=== PATIENT | male | born 1995 | race Caucasian/White ===

== ENCOUNTER 2016-08-15 00:20 | Emergency (ER) | payer OTHER ==
[~2016-08-15] VITALS: Ht 182.9 cm; Wt 71.7 kg
[~2016-08-15 00:20] MED LIST: METH-313 PO; NAPR550T PO
[2016-08-15] MEDS ORDERED: PANTOPRAZOLE 40 MG/10 ML (PROTONIX) VIAL ONE (00:23)
[2016-08-15] MEDS ORDERED: ONDANSETRON 4 MG/2 ML (SDV) Z0FRAN ONE (00:23)
[2016-08-15] MEDS ORDERED: NS IV 1000 ML 1,000 ML IV ONE (00:24)
--- OUTSIDE RECORDS SUMMARY | 2016-08-15 00:25 | XMS REPORT ---
Author JAYCOB Garrido [facility], [place] eClinicalWorks Address Unknown Phone Unavailable Care Team Providers Care Chainer Name Role Phone JAYCOB BAKER CP Unavailable Allergies, Adverse Reactions, Alerts Substance Reaction Event Type N.K.D.A. Info Not Available Non Drug Allergy Problems Problem Type Condition Code Onset Dates Condition Status Assessment Low back pain M54.5 Active Assessment Other chronic pain G89.29 Active Problem Other chronic pain G89.29 Active Medications Medication Code System Code Instructions Start Date End Date Status Dosage PredniSONE [facility] [address]-88 20 mg Orally Once a day Mar 22, 2016 Mar 27, 2016 2 tablets Zanaflex [facility] [address]-14 6 MG Orally 2 times a day Mar 22, 2016 1 capsule as needed Tramadol HCl [facility] [address]-01 50 mg Orally 2 times a day Mar 22, 2016 1 tablet as needed Naproxen Sodium [facility] [address]-00 550 MG Orally Twice a day 1 tablet Procedures Procedure Coding System Code Date Office Visit, New Pt., Level 3 CPT-4 72209 Mar 22, 2016 Vital Signs Date/Time: Mar 22, 2016 Cardiac Monitoring Heart Rate 80 bpm Weight 157.1 lbs Height 72 in BMI 21.30 Index Blood Pressure Diastolic 80 mmHg Blood Pressure Systolic 116 mmHg Results No Known Results Summary Purpose eClinicalWorks Submission
[2016-08-15] MEDS ORDERED: ONDANSETRON 4 MG/2 ML (SDV) Z0FRAN IVP ONE (00:30)
[2016-08-15] MEDS ORDERED: PANTOPRAZOLE 40 MG/10 ML (PROTONIX) VIAL IV ONE (00:30)
--- NOTE | 2016-08-15 00:30 | ED General ---
General Stated Complaint: ETOH/VOMITING Source of Information: Patient, EMS History of Present Illness Time Seen by Provider: 00:19 Initial Comments PT ARRIVES VIA EMS FROM HOME--NO IV/NO TREATMENT DONE BY EMS PT IS INTOXICATED--STATES HE HAD 4 SHOTS OF VODKA AND HAS HAD 5 BOTTLES OF BEER TONIGHT AND "IT DIDN'T AGREE WITH ME" PT WAS FOUND BY A FAMILY MEMBER "PASSED OUT" LEANING OVER THE TOILET--"COULDN'T WAKE HIM UP" EMS REPORT THAT PT WAS AWAKE/ALERT, LEANING OVER TOILET AND VOMITING ON THEIR ARRIVAL TO SCENE PT IS DRY HEAVING ON ARRIVAL WITH FLECKS OF BLOOD IN EMESIS PT ATE [place] SOMETIME AFTER 1800 TONIGHT. Allergies and Home Medications Allergies Coded Allergies: No Known Drug Allergies (Unverified , 03/09/16) Home Medications Methocarbamol 750 Mg Tablet #60 750 MG PO UD Prescribed by: JAYCOB THAKKAR on 03/09/16 2315 Naproxen Sodium 550 Mg Tablet #30 550 MG PO Q12H PRN PRN BACK PAIN Prescribed by: JAYCOB THAKKAR on 03/09/16 2315 Ondansetron 4 Mg Tab.rapdis #10 4 MG PO Q4H Prescribed by: DELROY WILLARD on 08/15/16 0146 Pantoprazole Sodium 40 Mg Tablet.dr #15 40 MG PO DAILY Prescribed by: DELROY WILLARD on 08/15/16 0146 Constitutional: no symptoms reported Respiratory: no symptoms reported Cardiovascular: no symptoms reported Gastrointestinal: see HPI Genitourinary: no symptoms reported Musculoskeletal: no symptoms reported Skin: no symptoms reported Psychiatric/Neurological: See HPI Hematologic/Lymphatic: No Symptoms Reported Immunological/Allergic: no symptoms reported Past Dbcxcwx-Vztbjg-Zikjgs Hx Patient Social History Smoking Status: Current Everyday Smoker (1/2 PPD) Type Used: Cigarettes Recent Hopitalizations: No Seasonal Allergies Seasonal Allergies: No Surgeries HX Surgeries: No Respiratory Hx Respiratory Disorders: No Cardiovascular Hx Cardiac Disorders: No Neurological Hx Neurological Disorders: No Reproductive System Hx Reproductive Disorders: No Genitourinary Hx Genitourinary Disorders: No Gastrointestinal Hx Gastrointestinal Disorders: No Musculoskeletal Hx Musculoskeletal Disorders: No Endocrine Hx Endocrine Disorders: No HEENT HX ENT Disorders: No Cancer Hx Cancer: No Psychosocial Hx Psychiatric Problems: No Integumentary HX Skin/Integumentary Disorder: No Blood Transfusions Hx Blood Disorders: No Physical Exam Vital Signs Vital Sign - Last 12Hours 08/15/16 00:20 Temp 95.5 Pulse 78 Resp 12 B/P 115/76 Pulse Ox 97 O2 Delivery Room Air Capillary Refill : General Appearance: No Apparent Distress WD/WN Thin Other (PT MOSTLY DRY HEAVING WITH SMALL AMOUNT OF BLOOD TINGED EMESIS--SMALL FLECKS OF BLOOD. + ODOR OF ETOH. 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 Norm as Tested Skin: Normal Color Warm/Dry Focused Exam Lactic Acid Level Progress/Results/Core Measures Results/Orders Lab Results Laboratory Tests Test 08/15/16 00:28 08/15/16 01:12 Range/Units Activated Partial Thromboplast Time 26 24-35 SEC Alanine Aminotransferase (ALT/SGPT) 12 0-55 U/L Albumin 4.4 3.2-4.5 G/DL Alkaline Phosphatase 71 40-136 U/L Amylase Level 38 25-125 U/L Anion Gap 16 H 5-14 MMOL/L Aspartate Amino Transf (AST/SGOT) 22 5-34 U/L BUN/Creatinine Ratio 12 Basophils # (Auto) 0.0 0.0-0.1 10^3/uL Basophils (%) (Auto) 0 0-10 % Blood Urea Nitrogen 10 7-18 MG/DL Calcium Level 9.5 8.5-10.1 MG/DL Carbon Dioxide Level 16 L 21-32 MMOL/L Chloride Level 107 98-107 MMOL/L Creatinine 0.83 0.60-1.30 MG/DL Eosinophils # (Auto) 0.2 0.0-0.3 10^3/uL Eosinophils (%) (Auto) 3 0-10 % Estimat Glomerular Filtration Rate > 60 Glucose Level 101 70-105 MG/DL Hematocrit 39 L 40-54 % Hemoglobin 13.6 13.3-17.7 G/DL INR Comment 1.1 0.8-1.4 Lipase 7 L 8-78 U/L Lymphocytes # (Auto) 3.8 1.0-4.0 X 10^3 Lymphocytes (%) (Auto) 50 H 12-44 % Mean Corpuscular Hemoglobin 30 25-34 PG Mean Corpuscular Hemoglobin Concent 35 32-36 G/DL Mean Corpuscular Volume 84 80-99 FL Mean Platelet Volume 9.2 7.4-10.4 FL Monocytes # (Auto) 0.5 0.0-1.0 X 10^3 Monocytes (%) (Auto) 7 0-12 % Neutrophils # (Auto) 3.0 1.8-7.8 X 10^3 Neutrophils (%) (Auto) 40 L 42-75 % Platelet Count 251 130-400 10^3/uL Potassium Level 3.5 L 3.6-5.0 MMOL/L Prothrombin Time 14.2 12.2-14.7 SEC Red Blood Count 4.61 4.35-5.85 10^6/uL Red Cell Distribution Width 11.9 10.0-14.5 % Serum Alcohol 109 H <10 MG/DL Sodium Level 139 135-145 MMOL/L Total Bilirubin 1.1 H 0.1-1.0 MG/DL Total Protein 6.7 6.4-8.2 G/DL White Blood Count 7.5 4.3-11.0 10^3/uL Ur Tricyclic Antidepressants Screen NEGATIVE NEGATIVE Urine Amphetamines Screen NEGATIVE NEGATIVE Urine Barbiturates Screen NEGATIVE NEGATIVE Urine Benzodiazepines Screen NEGATIVE NEGATIVE Urine Cannabinoids Screen NEGATIVE NEGATIVE Urine Cocaine Screen NEGATIVE NEGATIVE Urine Methadone Screen NEGATIVE NEGATIVE Urine Methamphetamines Screen NEGATIVE NEGATIVE Urine Opiates Screen NEGATIVE NEGATIVE Urine Oxycodone Screen NEGATIVE NEGATIVE Urine Phencyclidine Screen NEGATIVE NEGATIVE Urine Propoxyphene Screen NEGATIVE NEGATIVE My Orders Orders-DELROY WILLARD DO Ondansetron Injection (Zofran Injectio (08/15/16 00:30) Pantoprazole Injection (Protonix Injecti (08/15/16 00:30) Saline Lock/Iv-Start (08/15/16 00:24) Alcohol (08/15/16 00:24) Amylase (08/15/16 00:24) Cbc With Automated Diff (08/15/16 00:24) Comprehensive Metabolic Panel (08/15/16 00:24) Drug Screen Stat (Urine) (08/15/16 00:24) Lipase (08/15/16 00:24) Protime With Inr (08/15/16 00:24) Partial Thromboplastin Time (08/15/16 00:24) Saline Lock/Iv-Start (08/15/16 00:24) Ns Iv 1000 Ml (Sodium Chloride 0.9%) (08/15/16 00:24) Ondansetron Injection (Zofran Injectio (08/15/16 00:23) Pantoprazole Injection (Protonix Injecti (08/15/16 00:23) Rx-Ondansetron Po (Rx-Zofran Po) (08/15/16 01:47) Medications Given in ED Current Medications Medications Dose Ordered Sig/[place] Route Start Time Stop Time Status Last Admin Dose Admin Ondansetron HCl 8 mg ONCE ONCE IVP 08/15/16 00:30 08/15/16 00:31 DC 08/15/16 00:30 8 MG Pantoprazole 40 mg 40 mg ONCE ONCE IV 08/15/16 00:30 08/15/16 00:31 DC 08/15/16 00:30 40 MG Sodium Chloride 1,000 ml @ 0 mls/hr Q0M ONCE IV 08/15/16 00:24 08/15/16 00:26 DC 08/15/16 00:38 0 MLS/HR Vital Signs/I&O Vital Sign - Last 12Hours 08/15/16 08/15/16 00:20 02:00 Temp 95.5 97.0 Pulse 78 75 Resp 12 14 B/P 115/76 Pulse Ox 97 97 O2 Delivery Room Air Progress Note : Progress Note NO FURTHER VOMITING DURING ER STAY SPEECH IS CLEAR AND STEADY GAIT AT DISMISSAL Departure Impression Impression: Primary Impression: Alcohol intoxication Additional Impression: Acute alcoholic gastritis Disposition: 01 HOME, SELF-CARE Condition: Improved Departure-Patient Inst. Referrals: NO,LOCAL PHYSICIAN (PCP/Family) Primary Care Physician Patient Instructions: ALCOHOL AND SUBSTANCE ABUSE, Alcohol Abuse and Alcoholism (DC), Gastritis (DC) Add. Discharge Instructions: NO ALCOHOL!!! TOMORROW, DRINK ONLY CLEAR LIQUIDS--WATER, BROTH, JELLO, GATORADE WHEN YOUR NAUSEA IS BETTER, ADD BRATS DIET TO CLEAR LIQUIDS--BANANAS, RICE, APPLESAUCE, TOAST, SALTINES FOLLOW UP WITH YOUR DR TOMORROW IF NO BETTER Scripts Ondansetron (Zofran Odt)4 Mg Tab.rapdis4 Mg PO Q4H Nausea/Vomiting #10 TAB Prov:MONTSE,DELROY K DO 08/15/16 Pantoprazole Sodium (Protonix)40 Mg Tablet.dr40 Mg PO DAILY #15 TAB Prov:MONTSESANDRAA K DO 08/15/16 MONTSEDELROY K DO Aug 15, 2016 00:30 Dose Admin Ondansetron HCl 8 mg ONCE ONCE IVP 08/15/16 00:30 08/15/16 00:31 DC 08/15/16 00:30 8 MG Pantoprazole 40 mg 40 mg ONCE ONCE IV 08/15/16 00:30 08/15/16 00:31 DC 08/15/16 00:30 40 MG Sodium Chloride 1,000 ml @ 0 mls/hr Q0M ONCE IV 08/15/16 00:24 08/15/16 00:26 DC 08/15/16 00:38 0 MLS/HR Vital Signs/I&O Vital Sign - Last 12Hours 08/15/16 00:20 Temp 95.5 Pulse 78 Resp 12 B/P 115/76 Pulse Ox 97 O2 Delivery Room Air Departure Impression Impression: Primary Impression: Alcohol intoxication Additional Impression: Acute alcoholic gastritis Disposition: HOME, SELF-CARE Condition: Improved Departure-Patient Inst. Referrals: NO,LOCAL PHYSICIAN (PCP/Family) Primary Care Physician Patient Instructions: ALCOHOL AND SUBSTANCE ABUSE, Alcohol Abuse and Alcoholism (DC), Gastritis (DC) Add. Discharge Instructions: NO ALCOHOL!!! TOMORROW, DRINK ONLY CLEAR LIQUIDS--WATER, BROTH, JELLO, GATORADE WHEN YOUR NAUSEA IS BETTER, ADD BRATS DIET TO CLEAR LIQUIDS--BANANAS, RICE, APPLESAUCE, TOAST, SALTINES FOLLOW UP WITH YOUR DR TOMORROW IF NO BETTER Scripts Ondansetron (Zofran Odt)4 Mg Tab.rapdis4 Mg PO Q4H Nausea/Vomiting #10 TAB Prov:MONTSE,DELROY K DO 08/15/16 Pantoprazole Sodium (Protonix)40 Mg Tablet.dr40 Mg PO DAILY #15 TAB Prov:MONTSE,DELROY K DO 08/15/16 MONTSEDELROY K DO Aug 15, 2016 00:30
[2016-08-15 00:41] LABS: BASOPHILS % (AUTO) 0 % (0-10); EOSINOPHILS # (AUTO) 0.2 10^3/uL (0.0-0.3); EOSINOPHILS % (AUTO) 3 % (0-10); LYMPHOCYTES # (AUTO) 3.8 X 10^3 (1.0-4.0); LYMPHOCYTES % (AUTO) 50 % (12-44); MEAN CORPUSCULAR HEMOGLOBIN 30 PG (25-34); MEAN CORPUSCULAR HGB CONC 35 G/DL (32-36); MEAN CORPUSCULAR VOLUME 84 FL (80-99); MEAN PLATELET VOLUME 9.2 FL (7.4-10.4); MONOCYTES # (AUTO) 0.5 X 10^3 (0.0-1.0); MONOCYTES % (AUTO) 7 % (0-12); NEUTROPHILS % (AUTO) 40 % (42-75); PLATELET COUNT 251 10^3/uL (130-400); RED BLOOD COUNT 4.61 10^6/uL (4.35-5.85); RED CELL DISTRIBUTION WIDTH 11.9 % (10.0-14.5); WHITE BLOOD COUNT 7.5 10^3/uL (4.3-11.0)
[2016-08-15 00:49] LABS: INR 1.1 (0.8-1.4); PROTHROMBIN TIME PATIENT 14.2 SEC (12.2-14.7)
[2016-08-15 01:00] LABS: ALANINE AMINOTRANSFERASE 12 U/L (0-55); ALBUMIN 4.4 G/DL (3.2-4.5); ALCOHOL 109 MG/DL (<10); AMYLASE 38 U/L (25-125); ANION GAP 16 MMOL/L (5-14); ASPARTATE AMINO TRANSFERASE 22 U/L (5-34); BILIRUBIN,TOTAL 1.1 MG/DL (0.1-1.0); BLOOD UREA NITROGEN 10 MG/DL (7-18); BUN/CREATININE RATIO 12; CALCIUM 9.5 MG/DL (8.5-10.1); CARBON DIOXIDE 16 MMOL/L (21-32); CHLORIDE 107 MMOL/L (98-107); CREATININE SERUM 0.83 MG/DL (0.60-1.30); GFR ESTIMATED > 60; GLUCOSE 101 MG/DL (70-105); LIPASE 7 U/L (8-78); POTASSIUM 3.5 MMOL/L (3.6-5.0); SODIUM 139 MMOL/L (135-145); TOTAL PROTEIN 6.7 G/DL (6.4-8.2)
[2016-08-15] MEDS ORDERED: PANT40TA2 PO (01:46)
[2016-08-15] MEDS ORDERED: ONDA4TAB8 PO (01:46)
[2016-08-15] MEDS ORDERED: RX-ONDANSETRON 4 MG ODT (ZOFRAN) PPK #4 PO STA (01:47)
[2016-08-15 02:00] VITALS: BP 120/84
== END 2016-08-15 02:00 | disposition home or self-care (01) ==
LOC: EDUNIT# 00:20 → ER 00:22
DX: F10.129 Alcohol abuse with intoxication, unspecified (principal); K29.20 Alcoholic gastritis without bleeding; Y90.5 Blood alcohol level of 100-119 mg/100 ml; F17.210 Nicotine dependence, cigarettes, uncomplicated
CPT/HCPCS: 36415; 80053; 80306; 80320; 82150; 83690; 85025; 85610; 85730; 96361; 96374; 96375

== ENCOUNTER 2016-08-20 23:10 | Emergency (ER) | payer OTHER ==
[~2016-08-20] VITALS: Ht 182.9 cm; Wt 68.0 kg
[~2016-08-20 23:10] MED LIST changes: +ONDA4TAB8 PO; +PANT40TA2 PO
[2016-08-20 23:28] LABS: BASOPHILS % (AUTO) 0 % (0-10); EOSINOPHILS # (AUTO) 0.1 10^3/uL (0.0-0.3); EOSINOPHILS % (AUTO) 1 % (0-10); LYMPHOCYTES # (AUTO) 3.3 X 10^3 (1.0-4.0); LYMPHOCYTES % (AUTO) 31 % (12-44); MEAN CORPUSCULAR HEMOGLOBIN 29 PG (25-34); MEAN CORPUSCULAR HGB CONC 36 G/DL (32-36); MEAN CORPUSCULAR VOLUME 83 FL (80-99); MEAN PLATELET VOLUME 9.2 FL (7.4-10.4); MONOCYTES # (AUTO) 0.8 X 10^3 (0.0-1.0); MONOCYTES % (AUTO) 8 % (0-12); NEUTROPHILS # (AUTO) 6.2 X 10^3 (1.8-7.8); NEUTROPHILS % (AUTO) 60 % (42-75); PLATELET COUNT 301 10^3/uL (130-400); RED BLOOD COUNT 4.66 10^6/uL (4.35-5.85); RED CELL DISTRIBUTION WIDTH 11.9 % (10.0-14.5); WHITE BLOOD COUNT 10.4 10^3/uL (4.3-11.0)
--- NOTE | 2016-08-20 23:30 | ED General ---
ED General Template History Present Illness 20-year-old male brought in for what appears to be right lower quadrant pain. Patient is intoxicated, provides no information. Patient has drank a significant amount. Patient has previous visit for intoxication. He denies taking any drugs. He has some vomiting previously from drinking. Initial Time/Exam Patient 2310 Allergy/Medications Allergies: Coded Allergies: No Known Drug Allergies (Unverified , 03/09/16) Methocarbamol (Robaxin-750) 750 Mg Tablet, 750 MG PO UD, #60 Ref 0 Prescribed by: JAYCOB THAKKAR on 03/09/16 2315 Naproxen Sodium (Anaprox Ds) 550 Mg Tablet, 550 MG PO Q12H PRN for BACK PAIN, # 30 Ref 0 Prescribed by: JAYCOB THAKKAR on 03/09/16 2315 Ondansetron (Zofran Odt) 4 Mg Tab.rapdis, 4 MG PO Q4H, #10 Prescribed by: DELROY WILLARD on 08/15/16 0146 Pantoprazole Sodium (Protonix) 40 Mg Tablet.dr, 40 MG PO DAILY, #15 Prescribed by: DELROY WILLARD on 08/15/16 0146 Review Of Systems Patient positive for abdominal pain, intoxication, nausea vomiting. Review of systems is limited based on his intoxication. PMH Past Medical Hx nurses notes reviewed Physicial Exam Gen: intoxicated, nad Heent: mucous membranes moist, perrl, eom intact CV RRR, cap refill brisk Resp, CTAB, no increased wob, wheezing or rhonchi Abd: mild ttp rlq, no rebound or guarding int: no rash, acute changes ext: move all extremities. Progress/Results/Core Measures Results/Orders Lab Results Laboratory Tests Test 08/20/16 23:20 08/20/16 23:35 Range/Units White Blood Count 10.4 4.3-11.0 10^3/uL Red Blood Count 4.66 4.35-5.85 10^6/uL Hemoglobin 13.7 13.3-17.7 G/DL Hematocrit 39 L 40-54 % Mean Corpuscular Volume 83 80-99 FL Mean Corpuscular Hemoglobin 29 25-34 PG Mean Corpuscular Hemoglobin Concent 36 32-36 G/DL Red Cell Distribution Width 11.9 10.0-14.5 % Platelet Count 301 130-400 10^3/uL Mean Platelet Volume 9.2 7.4-10.4 FL Neutrophils (%) (Auto) 60 42-75 % Lymphocytes (%) (Auto) 31 12-44 % Monocytes (%) (Auto) 8 0-12 % Eosinophils (%) (Auto) 1 0-10 % Basophils (%) (Auto) 0 0-10 % Neutrophils # (Auto) 6.2 1.8-7.8 X 10^3 Lymphocytes # (Auto) 3.3 1.0-4.0 X 10^3 Monocytes # (Auto) 0.8 0.0-1.0 X 10^3 Eosinophils # (Auto) 0.1 0.0-0.3 10^3/uL Basophils # (Auto) 0.0 0.0-0.1 10^3/uL Sodium Level 141 135-145 MMOL/L Potassium Level 3.1 L 3.6-5.0 MMOL/L Chloride Level 107 98-107 MMOL/L Carbon Dioxide Level 20 L 21-32 MMOL/L Anion Gap 14 5-14 MMOL/L Blood Urea Nitrogen 8 7-18 MG/DL Creatinine 0.90 0.60-1.30 MG/DL Estimat Glomerular Filtration Rate > 60 BUN/Creatinine Ratio 9 Glucose Level 97 70-105 MG/DL Calcium Level 9.9 8.5-10.1 MG/DL Total Bilirubin 1.3 H 0.1-1.0 MG/DL Aspartate Amino Transf (AST/SGOT) 14 5-34 U/L Alanine Aminotransferase (ALT/SGPT) 10 0-55 U/L Alkaline Phosphatase 76 40-136 U/L C-Reactive Protein High Sensitivity 0.01 0.00-0.50 MG/DL Total Protein 6.9 6.4-8.2 G/DL Albumin 4.7 H 3.2-4.5 G/DL Amylase Level 33 25-125 U/L Serum Alcohol 90 H <10 MG/DL Urine Color YELLOW Urine Clarity SLIGHTLY CLOUDY Urine pH 5 5-9 Urine Specific [place] 1.025 H 1.016-1.022 Urine Protein 1+ H NEGATIVE Urine Glucose (UA) NEGATIVE NEGATIVE Urine Ketones NEGATIVE NEGATIVE Urine Nitrite NEGATIVE NEGATIVE Urine Bilirubin NEGATIVE NEGATIVE Urine Urobilinogen 1 NORMAL MG/DL Urine Leukocyte Esterase 1+ H NEGATIVE Urine RBC (Auto) 1+ H NEGATIVE Urine RBC RARE /HPF Urine WBC RARE /HPF Urine Squamous Epithelial Cells 0-2 /HPF Urine Crystals NONE /LPF Urine Bacteria TRACE /HPF Urine Casts NONE /LPF Urine Mucus LARGE H /LPF Urine Culture Indicated NO Urine Opiates Screen NEGATIVE NEGATIVE Urine Oxycodone Screen NEGATIVE NEGATIVE Urine Methadone Screen NEGATIVE NEGATIVE Urine Propoxyphene Screen NEGATIVE NEGATIVE Urine Barbiturates Screen NEGATIVE NEGATIVE Ur Tricyclic Antidepressants Screen NEGATIVE NEGATIVE Urine Phencyclidine Screen NEGATIVE NEGATIVE Urine Amphetamines Screen NEGATIVE NEGATIVE Urine Methamphetamines Screen NEGATIVE NEGATIVE Urine Benzodiazepines Screen NEGATIVE NEGATIVE Urine Cocaine Screen NEGATIVE NEGATIVE Urine Cannabinoids Screen NEGATIVE NEGATIVE My Orders Orders - BIRDIE NAVAS DO Cbc With Automated Diff (08/20/16 23:20) Comprehensive Metabolic Panel (08/20/16 23:20) Amylase (08/20/16 23:20) Ua Culture If Indicated (08/20/16 23:20) Alcohol (08/20/16 23:20) Drug Screen Stat (Urine) (08/20/16 23:20) Saline Lock/Iv-Start (08/20/16 23:20) Hs C Reactive Protein (08/20/16 23:20) Acute Abd Series (08/20/16 23:20) Vital Signs/I&O Vital Sign - Last 12Hours 08/20/16 08/21/16 23:10 00:30 Temp 97.9 97.9 Pulse 72 70 Resp 18 18 B/P (MAP) 103/86 Pulse Ox 99 97 O2 Delivery Room Air Diagnostic Imaging Diagonstic Imaging: Xray Plain Films/CT/US/NM/MRI: chest, abdomen Comments moderate stool, no acute process Reviewed: Reviewed by Me Departure Impression Impression: Primary Impression: Alcohol intoxication Qualified Codes: F10.120 - Alcohol abuse with intoxication, uncomplicated Additional Impression: Abdominal pain Qualified Codes: R10.30 - Lower abdominal pain, unspecified Disposition: 01 HOME, SELF-CARE Condition: Stable Departure-Patient Inst. Referrals: NO,LOCAL PHYSICIAN (PCP/Family) Primary Care Physician Patient Instructions: ALCOHOL AND SUBSTANCE ABUSE, Acute Abdomen (Belly Pain), Adult (DC), Alcohol Abuse and Alcoholism (DC) BIRDIE NAVAS DO Aug 20, 2016 23:30
[2016-08-20 23:43] LABS: BILIRUBIN,URINE NEGATIVE (NEGATIVE); KETONES,URINE NEGATIVE (NEGATIVE); LEUKOCYTE ESTERASE ,URINE 1+ (NEGATIVE); NITRITE,URINE NEGATIVE (NEGATIVE); PH,URINE 5 (5-9); PROTEIN,URINE 1+ (NEGATIVE); UROBILINOGEN,URINE 1 MG/DL (NORMAL)
[2016-08-20 23:47] LABS: hs C REACTIVE PROTEIN 0.01 MG/DL (0.00-0.50)
[2016-08-20 23:49] LABS: ALANINE AMINOTRANSFERASE 10 U/L (0-55); ALBUMIN 4.7 G/DL (3.2-4.5); ANION GAP 14 MMOL/L (5-14); ASPARTATE AMINO TRANSFERASE 14 U/L (5-34); BILIRUBIN,TOTAL 1.3 MG/DL (0.1-1.0); BLOOD UREA NITROGEN 8 MG/DL (7-18); BUN/CREATININE RATIO 9; CALCIUM 9.9 MG/DL (8.5-10.1); CARBON DIOXIDE 20 MMOL/L (21-32); CHLORIDE 107 MMOL/L (98-107); GFR ESTIMATED > 60; GLUCOSE 97 MG/DL (70-105); POTASSIUM 3.1 MMOL/L (3.6-5.0); SODIUM 141 MMOL/L (135-145); TOTAL PROTEIN 6.9 G/DL (6.4-8.2)
[2016-08-20 23:51] LABS: SQUAMOUS EPITHELIAL CELL,UR 0-2 /HPF; WBC,URINE RARE /HPF
[2016-08-21 00:30] VITALS: BP 105/57
--- NOTE | 2016-08-21 08:37 | Diagnostic Imaging Report ---
INDICATION: Abdominal pain. Ethanol abuse. FINDINGS: PA chest show the lungs to be well-aerated and clear. There is no free air under the diaphragm. There is a moderate amount of stool present throughout colon from cecum to the rectum. There is an air-fluid level in the stomach though the stomach is not distended. Small bowel is not dilated. There is no organomegaly. No pathologic calcification. IMPRESSION: Finding consistent with moderate constipation. Otherwise negative abdomen series. Dictated by: Dictated on workstation # [id number]
--- OUTSIDE RECORDS SUMMARY | 2016-09-07 11:33 | XMS REPORT ---
Author JAYCOB Garrido [facility] eClinicalWorks Address Unknown Phone Unavailable Care Team Providers Care Wind Turbine Mechanic Name Role Phone JAYCOB BAKER CP Unavailable Allergies, Adverse Reactions, Alerts Substance Reaction Event Type N.K.D.A. Info Not Available Non Drug Allergy Problems Problem Type Condition Code Onset Dates Condition Status Assessment Low back pain M54.5 Active Assessment Other chronic pain G89.29 Active Problem Other chronic pain G89.29 Active Medications Medication Code System Code Instructions Start Date End Date Status Dosage PredniSONE [facility] [address]-99 20 mg Orally Once a day Mar 22, 2016 Mar 27, 2016 2 tablets Zanaflex [facility] [address]-23 6 MG Orally 2 times a day Mar 22, 2016 1 capsule as needed Tramadol HCl [facility] [address]-82 50 mg Orally 2 times a day Mar 22, 2016 1 tablet as needed Naproxen Sodium [facility] [address]-06 550 MG Orally Twice a day 1 tablet Procedures Procedure Coding System Code Date Office Visit, New Pt., Level 3 CPT-4 13863 Mar 22, 2016 Vital Signs Date/Time: Mar 22, 2016 Cardiac Monitoring Heart Rate 80 bpm Weight 157.1 lbs Height 72 in BMI 21.30 Index Blood Pressure Diastolic 80 mmHg Blood Pressure Systolic 116 mmHg Results No Known Results Summary Purpose eClinicalWorks Submission
== END 2016-08-21 00:30 | disposition home or self-care (01) ==
LOC: EDUNIT# 23:16 → ER 23:19
DX: R10.31 Right lower quadrant pain (principal); F10.129 Alcohol abuse with intoxication, unspecified; K59.00 Constipation, unspecified; Y90.4 Blood alcohol level of 80-99 mg/100 ml
CPT/HCPCS: 36415; 74022; 80053; 80306; 80320; 81000; 82150; 85025; 86141

== ENCOUNTER 2017-01-29 21:30 | Emergency (ER) | payer OTHER ==
[~2017-01-29] VITALS: Ht 182.9 cm; Wt 68.0 kg
[~2017-01-29 21:30] MED LIST changes: +NAPR-1070 PO; -NAPR550T PO
[2017-01-29] MEDS ORDERED: ONDANSETRON 4 MG/2 ML (SDV) Z0FRAN IVP ONE (21:45)
[2017-01-29] MEDS ORDERED: D5 NS 1000 ML IV SOLUTION 1,000 ML IV ONE (21:55)
[2017-01-29 22:03] LABS: BASOPHILS % (AUTO) 0 % (0-10); EOSINOPHILS # (AUTO) 0.1 10^3/uL (0.0-0.3); EOSINOPHILS % (AUTO) 1 % (0-10); LYMPHOCYTES # (AUTO) 2.7 X 10^3 (1.0-4.0); LYMPHOCYTES % (AUTO) 25 % (12-44); MEAN CORPUSCULAR HEMOGLOBIN 30 PG (25-34); MEAN CORPUSCULAR HGB CONC 35 G/DL (32-36); MEAN CORPUSCULAR VOLUME 84 FL (80-99); MEAN PLATELET VOLUME 9.3 FL (7.4-10.4); MONOCYTES # (AUTO) 0.5 X 10^3 (0.0-1.0); MONOCYTES % (AUTO) 5 % (0-12); NEUTROPHILS # (AUTO) 7.7 X 10^3 (1.8-7.8); NEUTROPHILS % (AUTO) 70 % (42-75); PLATELET COUNT 266 10^3/uL (130-400); RED BLOOD COUNT 4.53 10^6/uL (4.35-5.85); RED CELL DISTRIBUTION WIDTH 11.9 % (10.0-14.5)
--- NOTE | 2017-01-29 22:03 | ED GI ---
General Chief Complaint: Abdominal/GI Problems Stated Complaint: ETOH R SIDE PAIN Source of Information: Patient, Family (grandfather) Exam Limitations: Intoxication History of Present Illness Time Seen By Provider: 21:54 Initial Comments Patient presents to ER by private EMS and EMS give the report that they were called by someone who saw the patient lying on the ground clutching his right side and pain at [facility] today. They went to pick him up and said he was rather reluctant to get on the gurney and go with some and was rather uncooperative a little bit belligerent. Please present. They brought him in the ER eventually and he attempted to leave without being examined wants but as he was quite inebriated not able to give his location or current president we got him calm down and this physician could interview him. Patient gives a history that he's had a lot of back pain midline for as long she can remember but today started experiencing some right-sided abdominal pain that he's had for the last couple days and he's never had worked up. He says the pain is pretty sharp and caused him to double over and he has even fallen a couple times while he was at the celebration today. He says that he started drinking alcohol, were slight which helped some with the pain at first and then drinking vodka and eventually the pain was getting worse and worse despite the alcohol. He's had nausea and vomiting at least times one in front of us. He is not able to give much other medical history however he does state he has no medications past medical history or surgical history and has no allergies to medicines. His grandfather arrived shortly thereafter and help calm the patient down as well as corroborate the story that he's had this pain but not had it worked up for the last couple days. The patient denies smoking or other drugs at this time. He's had no diarrhea or constipation. No rash. No trauma fights or falls FROM a distance greater than standing. Allergies and Home Medications Allergies Coded Allergies: No Known Drug Allergies (Unverified , 03/09/16) Home Medications Methocarbamol 750 Mg Tablet, 750 MG PO UD, #60 Ref 0 Prescribed by: JAYCOB THAKKAR on 03/09/162314 Naproxen Sodium 550 Mg Tablet, 550 MG PO Q12H PRN for BACK PAIN, #30 Ref 0 Prescribed by: JAYCOB THAKKAR on 03/09/165 Ondansetron 4 Mg Tab.rapdis, 4 MG PO Q4H, #10 Prescribed by: DELROY WILLARD on 08/15/16 0146 Pantoprazole Sodium 40 Mg Tablet.dr, 40 MG PO DAILY, #15 Prescribed by: DELROY WILLARD on 08/15/16 0146 Review of Systems Constitutional: see HPI (what review of systems could be obtained is in the history of present illness. The patient is overtly inebriated and not fully cooperative.) Past Ydwlvux-Wlwaed-Wsdtpa Hx Patient Social History Alcohol Use: Regular Use Alcohol Beverage of Choice: Beer, Vodka Recreational Drug Use: No Smoking Status: Never a Smoker Type Used: Cigarettes 2nd Hand Smoke Exposure: No Recent Hopitalizations: No Seasonal Allergies Seasonal Allergies: No Reproductive System Hx Reproductive Disorders: No Physical Exam Vital Signs VS - Last 72 Hours, by Label 01/29/17 21:56 Temp 98.9 Pulse 79 Resp 18 B/P (MAP) 115/66 Pulse Ox 93 O2 Delivery Room Air Capillary Refill : General Appearance: mild distress, thin HEENT: PERRL/EOMI, normal ENT inspection, TMs normal, pharynx normal Neck: non-tender, supple, normal inspection Respiratory: chest non-tender, lungs clear, normal breath sounds Cardiovascular: normal peripheral pulses, regular rate, rhythm, no edema, no murmur Peripheral Pulses: 2+ Dorsalis Pedis (R), 2+ Left Dors-Pedis (L), 2+ Radial Pulses (R), 2+ Radial Pulses (L) Gastrointestinal: normal bowel sounds, soft, tenderness (right side but Echols' s and rebound tenderness or difficult to obtain since the patient is not allowing me to examine his abdomen any further.) Extremities: non-tender, normal inspection, no pedal edema, normal capillary refill Neurologic/Psychiatric: promotions coordinator II-XII nml as tested, no motor/sensory deficits, alert, disoriented x 3 (oriented to self only knows who his grandpa's.) Skin: normal color, warm/dry Progress/Results/Core Measures Results/Orders Lab Results Laboratory Tests Test 01/29/17 21:50 01/29/17 22:15 Range/Units White Blood Count 11.0 4.3-11.0 10^3/uL Red Blood Count 4.53 4.35-5.85 10^6/uL Hemoglobin 13.4 13.3-17.7 G/DL Hematocrit 38 L 40-54 % Mean Corpuscular Volume 84 80-99 FL Mean Corpuscular Hemoglobin 30 25-34 PG Mean Corpuscular Hemoglobin Concent 35 32-36 G/DL Red Cell Distribution Width 11.9 10.0-14.5 % Platelet Count 266 130-400 10^3/uL Mean Platelet Volume 9.3 7.4-10.4 FL Neutrophils (%) (Auto) 70 42-75 % Lymphocytes (%) (Auto) 25 12-44 % Monocytes (%) (Auto) 5 0-12 % Eosinophils (%) (Auto) 1 0-10 % Basophils (%) (Auto) 0 0-10 % Neutrophils # (Auto) 7.7 1.8-7.8 X 10^3 Lymphocytes # (Auto) 2.7 1.0-4.0 X 10^3 Monocytes # (Auto) 0.5 0.0-1.0 X 10^3 Eosinophils # (Auto) 0.1 0.0-0.3 10^3/uL Basophils # (Auto) 0.0 0.0-0.1 10^3/uL Sodium Level 140 135-145 MMOL/L Potassium Level 3.4 L 3.6-5.0 MMOL/L Chloride Level 106 98-107 MMOL/L Carbon Dioxide Level 19 L 21-32 MMOL/L Anion Gap 15 H 5-14 MMOL/L Blood Urea Nitrogen 10 7-18 MG/DL Creatinine 0.78 0.60-1.30 MG/DL Estimat Glomerular Filtration Rate > 60 BUN/Creatinine Ratio 13 Glucose Level 106 H 70-105 MG/DL Calcium Level 9.2 8.5-10.1 MG/DL Magnesium Level 2.4 1.8-2.4 MG/DL Total Bilirubin 0.6 0.1-1.0 MG/DL Aspartate Amino Transf (AST/SGOT) 15 5-34 U/L Alanine Aminotransferase (ALT/SGPT) 13 0-55 U/L Alkaline Phosphatase 70 40-136 U/L Total Protein 7.1 6.4-8.2 GM/DL Albumin 4.4 3.2-4.5 GM/DL Lipase 9 8-78 U/L Serum Alcohol 109 H <10 MG/DL Urine Color YELLOW Urine Clarity CLEAR Urine pH 6 5-9 Urine Specific [place] 1.015 L 1.016-1.022 Urine Protein NEGATIVE NEGATIVE Urine Glucose (UA) NEGATIVE NEGATIVE Urine Ketones NEGATIVE NEGATIVE Urine Nitrite NEGATIVE NEGATIVE Urine Bilirubin NEGATIVE NEGATIVE Urine Urobilinogen NORMAL NORMAL MG/DL Urine Leukocyte Esterase NEGATIVE NEGATIVE Urine RBC (Auto) 1+ H NEGATIVE Urine RBC 0-2 /HPF Urine WBC 0-2 /HPF Urine Crystals NONE /LPF Urine Bacteria NONE /HPF Urine Casts NONE /LPF Urine Mucus TRACE /LPF Urine Culture Indicated NO Urine Opiates Screen NEGATIVE NEGATIVE Urine Oxycodone Screen NEGATIVE NEGATIVE Urine Methadone Screen NEGATIVE NEGATIVE Urine Propoxyphene Screen NEGATIVE NEGATIVE Urine Barbiturates Screen NEGATIVE NEGATIVE Ur Tricyclic Antidepressants Screen NEGATIVE NEGATIVE Urine Phencyclidine Screen NEGATIVE NEGATIVE Urine Amphetamines Screen NEGATIVE NEGATIVE Urine Methamphetamines Screen NEGATIVE NEGATIVE Urine Benzodiazepines Screen NEGATIVE NEGATIVE Urine Cocaine Screen NEGATIVE NEGATIVE Urine Cannabinoids Screen NEGATIVE NEGATIVE My Orders Orders - ISABELLA JUAN Ondansetron Injection (Zofran Injectio (01/29/17 21:45) Ct Abdomen/Pelvis W (01/29/17 21:55) Saline Lock/Iv-Start (01/29/17 21:55) Cbc With Automated Diff (01/29/17 21:55) Comprehensive Metabolic Panel (01/29/17 21:55) Drug Screen Stat (Urine) (01/29/17 21:55) Lipase (01/29/17 21:55) Magnesium (01/29/17 21:55) Ua Culture If Indicated (01/29/17 21:55) Chest 1 View, Ap/Pa Only (01/29/17 21:55) Saline Lock/Iv-Start (01/29/17 21:55) D5 Ns 1000 Ml Iv Solution (Dextrose 5%/0 (01/29/17 21:55) D5 1/2 Ns W/Kcl 20 Meq/L (Dextrose 5%/0. (01/29/17 22:45) Iohexol Injection (Omnipaque 350 Mg/Ml 1 (01/29/17 23:00) Ns (Ivpb) (Sodium Chloride 0.9% Ivpb Bag (01/29/17 23:00) Alcohol (01/29/17 23:12) Medications Given in ED Current Medications Medications Dose Ordered Sig/[place] Route Start Time Stop Time Status Last Admin Dose Admin Dextrose/Sodium Chloride 1,000 ml @ 0 mls/hr Q0M ONCE IV 01/29/17 21:55 01/29/17 21:58 DC 01/29/17 22:03 0 MLS/HR Iohexol 100 ml ONCE ONCE IV 01/29/17 23:00 01/29/17 23:01 DC 01/29/17 22:51 100 ML Ondansetron HCl 4 mg ONCE ONCE IVP 01/29/17 21:45 01/29/17 21:46 DC 01/29/17 21:52 4 MG Potassium Chloride/Dextrose/ Sod Cl 1,000 ml @ 500 mls/hr Q2H ONCE IV 01/29/17 22:45 01/30/17 00:44 01/29/17 23:06 500 MLS/HR Sodium Chloride 100 ml ONCE ONCE IV 01/29/17 23:00 01/29/17 23:01 DC 01/29/17 22:51 80 ML Vital Signs/I&O Vital Sign - Last 12Hours 01/29/17 21:56 Temp 98.9 Pulse 79 Resp 18 B/P (MAP) 115/66 Pulse Ox 93 O2 Delivery Room Air Progress Note #1: Time: 22:03 Progress Note Concern for a right abdominal process such as appendix or gallbladder. We'll get some blood from him and get a CT scan of his abdomen give him some fluids. Plan is let him sober up a little bit in the ER before allowing him to go home with his grandfather. Progress Note #2: Time: 23:36 Progress Note Pt resting without pain or nausea. Labs and CT are ok. He is low on K from GI losses earlier tonight. Much more coherent now. Ok to go home now. Declines further take home nausea meds. Diagnostic Imaging Diagonstic Imaging: Xray Plain Films/CT/US/NM/MRI: chest Comments unremarkable chest Reviewed: Reviewed by Me Diagonstic Imaging: CT Plain Films/CT/US/NM/MRI: abdomen, pelvis Comments normal appendix, no free fluid, air. liver, spleen, kidneys and pancreas, GB and bowel are normal. Reviewed: [facility] Reviewed by Me Departure Impression Impression: Primary Impression: Alcohol intoxication Qualified Codes: F10.920 - Alcohol use, unspecified with intoxication, uncomplicated Additional Impression: Right lateral abdominal pain Disposition: 01 HOME, SELF-CARE Condition: Stable Departure-Patient Inst. Decision time for Depature: 23:41 Referrals: NO,LOCAL PHYSICIAN (PCP/Family) Primary Care Physician Patient Instructions: Acute Abdomen (Belly Pain), Adult (DC) Add. Discharge Instructions: drink plenty of fluids and get some Gatorade or bananas to replace the potassium you lost from vomiting. Follow up with your doctor if new concerns arise. All discharge instructions reviewed with patient and/or family. Voiced understanding. ISABELLA JUAN Jan 29, 2017 22:03
[2017-01-29 22:21] LABS: ALANINE AMINOTRANSFERASE 13 U/L (0-55); ALBUMIN 4.4 GM/DL (3.2-4.5); ANION GAP 15 MMOL/L (5-14); ASPARTATE AMINO TRANSFERASE 15 U/L (5-34); BILIRUBIN,TOTAL 0.6 MG/DL (0.1-1.0); BLOOD UREA NITROGEN 10 MG/DL (7-18); BUN/CREATININE RATIO 13; CALCIUM 9.2 MG/DL (8.5-10.1); CARBON DIOXIDE 19 MMOL/L (21-32); CHLORIDE 106 MMOL/L (98-107); CREATININE SERUM 0.78 MG/DL (0.60-1.30); GFR ESTIMATED > 60; GLUCOSE 106 MG/DL (70-105); LIPASE 9 U/L (8-78); MAGNESIUM 2.4 MG/DL (1.8-2.4); POTASSIUM 3.4 MMOL/L (3.6-5.0); SODIUM 140 MMOL/L (135-145); TOTAL PROTEIN 7.1 GM/DL (6.4-8.2)
[2017-01-29] MEDS ORDERED: D5 1/2 NS W/KCL 20 MEQ/L 1,000 ML IV ONE (22:45)
[2017-01-29 22:54] LABS: BILIRUBIN,URINE NEGATIVE (NEGATIVE); KETONES,URINE NEGATIVE (NEGATIVE); LEUKOCYTE ESTERASE ,URINE NEGATIVE (NEGATIVE); NITRITE,URINE NEGATIVE (NEGATIVE); PH,URINE 6 (5-9); PROTEIN,URINE NEGATIVE (NEGATIVE); UROBILINOGEN,URINE NORMAL (NORMAL)
[2017-01-29 23:00] LABS: WBC,URINE 0-2 /HPF
[2017-01-29] MEDS ORDERED: IOHEXOL 350 MG/ML 100 ML (OMNIPAQUE 350) VIAL IV ONE (23:00)
[2017-01-29] MEDS ORDERED: NS 100 ML (IVPB) BAG IV ONE (23:00)
[2017-01-29 23:49] VITALS: BP 115/66
--- NOTE | 2017-01-30 06:47 | Diagnostic Imaging Report ---
Clinical indication: Patient with abdominal pain and EtOH abuse. Exam: Portable chest x-ray upright view. Comparisons: None. Findings: Lungs/pleura: Lungs are clear. There is no pneumothorax. There is no pleural effusion. Mediastinum: Unremarkable. Pulmonary vasculature: Unremarkable. Heart: Unremarkable. Bones/extrathoracic soft tissue: Unremarkable. Impression: There is no radiographic evidence of acute cardiopulmonary process. Dictated by: Dictated on workstation # [id number]
--- NOTE | 2017-01-30 07:28 | Diagnostic Imaging Report ---
PROCEDURE: CT abdomen and pelvis with contrast. TECHNIQUE: Multiple contiguous axial images were obtained through the abdomen and pelvis after administration of intravenous contrast. INDICATION: Generalized abdominal pain. COMPARISON: None. FINDINGS: The lung bases are clear. Solid organs, vascular structures, gallbladder and bowel are normal. There is no inflammatory process. There is slight constipation without obstruction. Distal ureters and urinary bladder are grossly normal. The visualized appendix is unremarkable. Osseous structures are intact. No prostate enlargement or inflammation is seen. IMPRESSION: 1. Slight constipation without obstruction. 2. No inflammatory process. Dictated by: Dictated on workstation # [id number]
== END 2017-01-29 23:51 | disposition home or self-care (01) ==
LOC: EDUNIT# 21:30 → ER 21:37
DX: F10.10 Alcohol abuse, uncomplicated (principal); R10.9 Unspecified abdominal pain
CPT/HCPCS: 36415; 71010; 74177; 80053; 80306; 80320; 81000; 83690; 83735; 85025; 96361; 96374

== ENCOUNTER 2017-02-18 20:22 | Observation (INO) | payer OTHER ==
[~2017-02-18] VITALS: Ht 188 cm; Wt 67.6 kg
[~2017-02-18 20:22] MED LIST changes: +NS IV 1000 ML 1,000 ML ONE; +ONDANSETRON 4 MG/2 ML (SDV) Z0FRAN ONE
[2017-02-18] MEDS ORDERED: NS IV 1000 ML 1,000 ML IV SCH (20:30)
[2017-02-18] MEDS ORDERED: PROMETHAZINE INJ 25 MG/ML (PHENERGAN) AMP IVP ONE ×2 (20:30→22:00)
[2017-02-18] MEDS ORDERED: ONDANSETRON 4 MG/2 ML (SDV) Z0FRAN IVP ONE (20:30)
[2017-02-18 20:38] LABS: BASOPHILS % (AUTO) 0 % (0-10); EOSINOPHILS # (AUTO) 0.2 10^3/uL (0.0-0.3); EOSINOPHILS % (AUTO) 2 % (0-10); LYMPHOCYTES # (AUTO) 5.7 X 10^3 (1.0-4.0); LYMPHOCYTES % (AUTO) 56 % (12-44); MEAN CORPUSCULAR HEMOGLOBIN 30 PG (25-34); MEAN CORPUSCULAR HGB CONC 35 G/DL (32-36); MEAN CORPUSCULAR VOLUME 85 FL (80-99); MEAN PLATELET VOLUME 9.2 FL (7.4-10.4); MONOCYTES % (AUTO) 10 % (0-12); NEUTROPHILS # (AUTO) 3.3 X 10^3 (1.8-7.8); NEUTROPHILS % (AUTO) 32 % (42-75); PLATELET COUNT 410 10^3/uL (130-400); RED BLOOD COUNT 4.58 10^6/uL (4.35-5.85); RED CELL DISTRIBUTION WIDTH 11.9 % (10.0-14.5); WHITE BLOOD COUNT 10.2 10^3/uL (4.3-11.0)
[2017-02-18 20:54] LABS: ALANINE AMINOTRANSFERASE 11 U/L (0-55); ALBUMIN 4.5 GM/DL (3.2-4.5); ALCOHOL 219 MG/DL (<10); ANION GAP 14 MMOL/L (5-14); ASPARTATE AMINO TRANSFERASE 13 U/L (5-34); BILIRUBIN,TOTAL 0.8 MG/DL (0.1-1.0); BLOOD UREA NITROGEN 10 MG/DL (7-18); BUN/CREATININE RATIO 12; CALCIUM 9.4 MG/DL (8.5-10.1); CARBON DIOXIDE 20 MMOL/L (21-32); CHLORIDE 107 MMOL/L (98-107); CREATININE SERUM 0.82 MG/DL (0.60-1.30); GFR ESTIMATED > 60; GLUCOSE 139 MG/DL (70-105); POTASSIUM 2.8 MMOL/L (3.6-5.0); SALICYLATE < 5.0 MG/DL (5.0-20.0); SODIUM 141 MMOL/L (135-145); TOTAL PROTEIN 7.3 GM/DL (6.4-8.2)
[2017-02-18 21:04] LABS: ACETAMINOPHEN < 10 UG/ML (10-30)
[2017-02-18] MEDS ORDERED: NS IV 500 ML 500 ML ONE (21:56)
[2017-02-18] MEDS ORDERED: POTASSIUM CL 10MEQ/50ML IVPB 50 ML IV ONE (22:00)
--- NOTE | 2017-02-18 22:03 | ED General ---
General Chief Complaint: Substance Abuse Stated Complaint: ETOH Nursing Triage Note: pt was witnessed crawling outside his house and acting confused. Pt reports drinking tequila and vodka. Nursing Sepsis Screen: No Definite Risk Source of Information: EMS Exam Limitations: No Limitations History of Present Illness Time Seen by Provider: 22:02 Initial Comments To ER per EMS from home after he was noted to be crawling around in his front yard. Police arrived to check him out and thought he appeared drunk so they called an ambulance Associated Systoms: Nausea/Vomiting Allergies and Home Medications Allergies Coded Allergies: No Known Drug Allergies (Unverified , 03/09/16) Home Medications Methocarbamol 750 Mg Tablet, 750 MG PO UD, #60 Ref 0 Prescribed by: JAYCOB THAKKAR on 03/09/16 2315 Naproxen Sodium 550 Mg Tablet, 550 MG PO Q12H PRN for BACK PAIN, #30 Ref 0 Prescribed by: JAYCOB THAKKAR on 03/09/16 2315 Ondansetron 4 Mg Tab.rapdis, 4 MG PO Q4H, #10 Prescribed by: DELROY WILLARD on 08/15/16 0146 Pantoprazole Sodium 40 Mg Tablet.dr, 40 MG PO DAILY, #15 Prescribed by: DELROY WILLARD on 08/15/16 0146 Constitutional: see HPI EENTM: see HPI Respiratory: no symptoms reported Cardiovascular: no symptoms reported Genitourinary: no symptoms reported Musculoskeletal: no symptoms reported Skin: no symptoms reported Psychiatric/Neurological: No Symptoms Reported Hematologic/Lymphatic: No Symptoms Reported Immunological/Allergic: no symptoms reported Past Xvhvzqe-Ywpcas-Vxmzhq Hx Patient Social History Alcohol Beverage of Choice: Beer, Vodka Type Used: Cigarettes 2nd Hand Smoke Exposure: No Recent Foreign Travel: No Contact w/Someone Who Travel: No Recent Infectious Disease Expo: No Recent Hopitalizations: No Physical Abuse: No Sexual Abuse: No Mistreated: No Seasonal Allergies Seasonal Allergies: No Surgeries History of Surgeries: No Respiratory History of Respiratory Disorde: No Cardiovascular History of Cardiac Disorders: No Neurological History of Neurological Disord: No Reproductive System Hx Reproductive Disorders: No Genitourinary History of Genitourinary Disor: No Gastrointestinal History of Gastrointestinal Di: No Musculoskeletal History of Musculoskeletal Dis: No Endocrine History of Endocrine Disorders: No HEENT History of HEENT Disorders: No Cancer History of Cancer: No Psychosocial History of Psychiatric Problem: No (?? unknown) Suicide Risk Score: 0 Integumentary History of Skin or Integumenta: No Blood Transfusions History of Blood Disorders: No Physical Exam Vital Signs Vital Sign - Last 12Hours 02/18/17 20:30 Temp 96.9 Pulse 69 Resp 18 B/P (MAP) 114/93 Pulse Ox 93 Capillary Refill : Less Than 3 Seconds General Appearance: No Apparent Distress, WD/WN, Other (belligerent, slurred speech alcohol like smell from breath. No scalp hematoma or facial ecchymosis to suggest head injury. Pupils are equal. Patient reports that he's had tequila tonight.) Eyes: Bilateral Eye Normal Inspection, Bilateral Eye PERRL, Bilateral Eye EOMI HEENT: PERRL/EOMI, TMs Normal Respiratory: No Accessory Muscle Use, No Respiratory Distress Cardiovascular: Regular Rate, Rhythm, Normal Peripheral Pulses Gastrointestinal: Non Tender, Soft Extremity: Normal Capillary Refill, Normal Inspection Neurologic/Psychiatric: Alert, Oriented x3, No Motor/Sensory Deficits Skin: Normal Color, Warm/Dry Progress/Results/Core Measures Results/Orders Lab Results Laboratory Tests Test 02/18/17 20:28 Range/Units White Blood Count 10.2 4.3-11.0 10^3/uL Red Blood Count 4.58 4.35-5.85 10^6/uL Hemoglobin 13.5 13.3-17.7 G/DL Hematocrit 39 L 40-54 % Mean Corpuscular Volume 85 80-99 FL Mean Corpuscular Hemoglobin 30 25-34 PG Mean Corpuscular Hemoglobin Concent 35 32-36 G/DL Red Cell Distribution Width 11.9 10.0-14.5 % Platelet Count 410 H 130-400 10^3/uL Mean Platelet Volume 9.2 7.4-10.4 FL Neutrophils (%) (Auto) 32 L 42-75 % Lymphocytes (%) (Auto) 56 H 12-44 % Monocytes (%) (Auto) 10 0-12 % Eosinophils (%) (Auto) 2 0-10 % Basophils (%) (Auto) 0 0-10 % Neutrophils # (Auto) 3.3 1.8-7.8 X 10^3 Lymphocytes # (Auto) 5.7 H 1.0-4.0 X 10^3 Monocytes # (Auto) 1.0 0.0-1.0 X 10^3 Eosinophils # (Auto) 0.2 0.0-0.3 10^3/uL Basophils # (Auto) 0.0 0.0-0.1 10^3/uL Sodium Level 141 135-145 MMOL/L Potassium Level 2.8 L 3.6-5.0 MMOL/L Chloride Level 107 98-107 MMOL/L Carbon Dioxide Level 20 L 21-32 MMOL/L Anion Gap 14 5-14 MMOL/L Blood Urea Nitrogen 10 7-18 MG/DL Creatinine 0.82 0.60-1.30 MG/DL Estimat Glomerular Filtration Rate > 60 BUN/Creatinine Ratio 12 Glucose Level 139 H 70-105 MG/DL Calcium Level 9.4 8.5-10.1 MG/DL Total Bilirubin 0.8 0.1-1.0 MG/DL Aspartate Amino Transf (AST/SGOT) 13 5-34 U/L Alanine Aminotransferase (ALT/SGPT) 11 0-55 U/L Alkaline Phosphatase 83 40-136 U/L Total Protein 7.3 6.4-8.2 GM/DL Albumin 4.5 3.2-4.5 GM/DL Salicylates Level < 5.0 L 5.0-20.0 MG/DL Acetaminophen Level < 10 L 10-30 UG/ML Serum Alcohol 219 H <10 MG/DL My Orders Orders - NORRIS ESCAMILLA APRN Cbc With Automated Diff (02/18/17 20:30) Comprehensive Metabolic Panel (02/18/17 20:30) Ua Culture If Indicated (02/18/17 20:30) Drug Screen Stat (Urine) (02/18/17 20:30) Salicylate (02/18/17 20:30) Acetaminophen (02/18/17 20:30) Alcohol (02/18/17 20:30) Saline Lock/Iv-Start (02/18/17 20:30) Ns Iv 1000 Ml (Sodium Chloride 0.9%) (02/18/17 20:30) Ondansetron Injection (Zofran Injectio (02/18/17 20:30) Promethazine Injection (Phenergan Injec (02/18/17 20:30) Potassium Cl 10meq/50ml Ivpb (Kcl 10 Meq (02/18/17 22:00) Promethazine Injection (Phenergan Injec (02/18/17 22:00) Ns Iv 500 Ml (Sodium Chloride 0.9%) (02/18/17 21:56) Medications Given in ED Current Medications Medications Dose Ordered Sig/[place] Route Start Time Stop Time Status Last Admin Dose Admin Ondansetron HCl 4 mg ONCE ONCE IVP 02/18/17 20:30 02/18/17 20:32 DC 02/18/17 20:37 4 MG Potassium Chloride 50 ml @ 50 mls/hr ONCE ONCE IV 02/18/17 22:00 02/18/17 22:59 DC 02/18/17 22:07 50 MLS/HR Promethazine HCl 12.5 mg ONCE ONCE IVP 02/18/17 20:30 02/18/17 20:32 DC 02/18/17 20:37 12.5 MG Promethazine HCl 12.5 mg ONCE ONCE IVP 02/18/17 22:00 02/18/17 22:01 DC 02/18/17 21:45 12.5 MG Sodium Chloride 500 ml @ STK-MED ONCE .ROUTE 02/18/17 21:56 02/18/17 22:04 DC 02/18/17 22:07 150 MLS/HR Vital Signs/I&O Vital Sign - Last 12Hours 02/18/17 20:30 Temp 96.9 Pulse 69 Resp 18 B/P (MAP) 114/93 Pulse Ox 93 Blood Pressure Mean: 100 Departure Communication (Admissions) Time/Spoke to Admitting Phy: 23:16 Communication 2314-after 2.5 hours in ER still intoxicated though less so than upon arrival. Had potassium 10mEq IV in ER over 1 hour in addition to 1 liter normal saline bolus, zofran 4mg IV x1 then phenergan 25mg IV x1. BP still 87/55, HR 90s. Arousable to verbal stimuli. Dr Bradford graciously accepts patient for admission, rehydration, re evaluation in am. Impression Impression: Primary Impression: Alcohol intoxication Disposition: ADMITTED INPATIENT Condition: Stable Admissions Decision to Admit Reason: Admit from ER (General) Decision to Admit/Date: Feb 18, 2017 Time/Decision to Admit Time: 23:16 Departure-Patient Inst. Decision time for Depature: 22:19 Referrals: NO,LOCAL PHYSICIAN (PCP/Family) Primary Care Physician Patient Instructions: ALCOHOL AND SUBSTANCE ABUSE Add. Discharge Instructions: All discharge instructions reviewed with patient and/or family. Voiced understanding. NORRIS ESCAMILLA FINISH SANDER Feb 18, 2017 22:03
[2017-02-18] MEDS ORDERED: NS IV 1000 ML 1,000 ML IV ONE (23:19)
[2017-02-19] VITALS (16 sets, daily range): BP systolic 82–110; BP diastolic 43–67
[2017-02-19] MEDS ORDERED: NS W/KCL 40 MEQ/L 1,000 ML IV ONE (00:28)
[2017-02-19] MEDS ORDERED: PANTOPRAZOLE 40 MG/10 ML (PROTONIX) VIAL ONE (00:28)
[2017-02-19] MEDS: NS W/KCL 40 MEQ/L 1,000 ML IV SCH ×2 (00:59→08:10)
[2017-02-19] MEDS ORDERED: ONDANSETRON 4 MG/2 ML (SDV) Z0FRAN IV PRN (01:00)
[2017-02-19 05:16] LABS: BASOPHILS % (AUTO) 0 % (0-10); EOSINOPHILS # (AUTO) 0.1 10^3/uL (0.0-0.3); EOSINOPHILS % (AUTO) 1 % (0-10); LYMPHOCYTES % (AUTO) 27 % (12-44); MEAN CORPUSCULAR HEMOGLOBIN 29 PG (25-34); MEAN CORPUSCULAR HGB CONC 34 G/DL (32-36); MEAN CORPUSCULAR VOLUME 87 FL (80-99); MEAN PLATELET VOLUME 9.4 FL (7.4-10.4); MONOCYTES # (AUTO) 0.6 X 10^3 (0.0-1.0); MONOCYTES % (AUTO) 8 % (0-12); NEUTROPHILS # (AUTO) 4.8 X 10^3 (1.8-7.8); NEUTROPHILS % (AUTO) 64 % (42-75); PLATELET COUNT 265 10^3/uL (130-400); RED BLOOD COUNT 4.32 10^6/uL (4.35-5.85); WHITE BLOOD COUNT 7.5 10^3/uL (4.3-11.0)
[2017-02-19 05:36] LABS: ANION GAP 8 MMOL/L (5-14); BLOOD UREA NITROGEN 7 MG/DL (7-18); BUN/CREATININE RATIO 10; CALCIUM 8.4 MG/DL (8.5-10.1); CARBON DIOXIDE 24 MMOL/L (21-32); CHLORIDE 112 MMOL/L (98-107); CREATININE SERUM 0.72 MG/DL (0.60-1.30); GFR ESTIMATED > 60; GLUCOSE 99 MG/DL (70-105); MAGNESIUM 1.9 MG/DL (1.8-2.4); POTASSIUM 4.9 MMOL/L (3.6-5.0); SODIUM 144 MMOL/L (135-145)
[2017-02-19] MEDS ORDERED: NS IV 1000 ML 1,000 ML ONE (07:35)
--- NOTE | 2017-02-19 08:25 | Short Stay Summary-Hospitalist ---
HPI History of Present Illness: HPI/Chief Complaint HPI: Pt is a 21yoCM who was brought to the ER last night by EMS after being found crawling in his front yard. He denies any recollection of last night. Per ED reports he was a also nauseated on arrival. He was given IVF and monitored for ~2 hours and symptoms only mildly improved and BP still 80/50s so was admitted for observation for acute intoxication. This morning he reports feeling hungover and would like to go home. When question how much he drinks he states "as much as a I can" and that he "tries" to do that "at least once a week." When explicitly asked if he felt he had a problem with drinking he states no. Review of records show multiples ER visits in the past year for alcohol intoxication. Source: patient, old records Exam Limitations: intoxication Date Seen 02/19/17 Time Seen by Provider: 07:20 Attending Physician Ilda Garcia MD PCP No,Local Physician Referring Physician Date of Admission Feb 18, 2017 at 23:00 Home Medications & Allergies Home Medications Reviewed patient Home Medication Reconciliation Form Allergies Allergies Coded Allergies No Known Drug Allergies (Azwyzygkel66/11/16) Past Jsvkfrl-Xmygox-Jftmqp Hx Patient Social History Alcohol Use: Regular Use Number of Drinks Today: 5 Alcohol Beverage of Choice: Beer, Whiskey, Vodka Recreational Drug Use: No Smoking Status: Current Everyday Smoker Type Used: Cigarettes 2nd Hand Smoke Exposure: No Physical Abuse Screen: No Sexual Abuse: No Recent Foreign Travel: No Contact w/other who traveled: No Recent Hopitalizations: No Recent Infectious Disease Expo: No Immunizations Up To Date Pediatric: No Seasonal Allergies Seasonal Allergies: No Surgeries No Respiratory No Cardiovascular No Neurological No Reproductive System Hx Reproductive Disorders: No Genitourinary No Gastrointestinal No Musculoskeletal No Endocrine History of Endocrine Disorders: No HEENT History of HEENT Disorders: No Cancer No Psychosocial History of Psychiatric Problem: Yes (PRIOR ETOH INTOXICATION ADMISSIONS) Integumentary History of Skin or Integumenta: No Blood Transfusions History of Blood Disorders: No Family Medical History Significant Family History: No Pertinent Family Hx Review of Systems Constitutional: No chills, No fever EENTM: No blurred vision, No double vision, No nose congestion, No throat pain Respiratory: No cough, No dyspnea on exertion, No short of breath Cardiovascular: No chest pain, No edema, No palpitations Gastrointestinal: No abdominal pain, No constipation, No diarrhea, nausea, vomiting Genitourinary: No dysuria, No frequency Musculoskeletal: No joint pain, No muscle pain Skin: No lesions, No rash Psychiatric/Neurological: Headache Physical Exam Physical Exam Vital Signs Vital Sign - Last 12Hours 02/18/17 02/18/17 20:30 23:50 Temp 96.9 Pulse 69 Resp 18 B/P (MAP) 114/93 Pulse Ox 93 O2 Delivery Room Air Capillary Refill : Less Than 3 Seconds General Appearance: No Apparent Distress, WD/WN HEENT: PERRL/EOMI, Moist Mucous Membranes Neck: Non Tender, Supple Respiratory: Lungs Clear, No Respiratory Distress Cardiovascular: Regular Rate, Rhythm, No Murmur Gastrointestinal: Normal Bowel Sounds, Non Tender, Soft Extremity: Normal Capillary Refill, No Calf Tenderness Neurologic/Psychiatric: Alert, Oriented x3 Skin: Normal Color, Warm/Dry Results Results/Procedures Lab Laboratory Tests 02/18/17 20:28 02/19/17 05:02 Short Stay Diagnosis Discharge Diagnosis-Short Stay Admission Diagnosis Acute alcohol intoxication Final Discharge Diagnosis Acute Alcohol Intoxication Conclusion Plan See Problems Diagnosis/Problems Diagnosis/Problems (1) Alcohol intoxication Status: Acute Assessment & Plan: Discussed at length potential health complications of alcohol abuse and binge drinking Pt resistant to seeking help, does not feel he has a problem with alcohol BP soft on arrival but has improved, review of records shows baseline in low 100 /70-60s Improved when awake- likely due to intoxication Will DC home on MTV Will make sure someone drives him home (2) Hypokalemia Assessment & Plan: Resolved with supplementation this AM Likely due to GI losses from vomiting (3) Normocytic anemia Status: Acute Assessment & Plan: Likely dilutional (4) Prophylactic measure Assessment & Plan: SCDs Regular Diet Clinical Quality Measures DVT/VTE Risk/Contraindication: Risk Factor Score Per Nursin RFS Level Per Nursing on Admit: 1=Low/No VTE PPX ILDA GARCIA MD Feb 19, 2017 08:25
[2017-02-19] MEDS ORDERED: MULT-642 PO (08:34)
[2017-02-19] MEDS ORDERED: PANTOPRAZOLE 40 MG/10 ML (PROTONIX) VIAL IV SCH (09:00)
[2017-02-19] MEDS ORDERED: NS IV 1000 ML 1,000 ML IV SCH (14:00)
== END 2017-02-19 11:25 | disposition home or self-care (01) ==
LOC: EDUNIT# 20:22 → ER 20:23 → UNDOADMOB 23:00 → ICU 23:00 → UNDODISOB 02-19 13:50
PROVIDERS: ADMIT Family Medicine; ATTEND Family Medicine
DX: F10.129 Alcohol abuse with intoxication, unspecified (principal); Y90.7 Blood alcohol level of 200-239 mg/100 ml; E87.6 Hypokalemia; F17.210 Nicotine dependence, cigarettes, uncomplicated
CPT/HCPCS: 36415; 80048; 80053; 80320; 80329; 83735; 84100; 85025; 96374; 96375; 96376; G0378

== ENCOUNTER 2017-07-28 01:26 | Emergency (ER) | payer SELFPAY ==
[~2017-07-28] VITALS: Ht 182.9 cm; Wt 68.0 kg
[~2017-07-28 01:26] MED LIST changes: +MULT-642 PO; -NS IV 1000 ML 1,000 ML ONE; -ONDANSETRON 4 MG/2 ML (SDV) Z0FRAN ONE
[2017-07-28] MEDS ORDERED: FAMOTIDINE 20MG/2ML IV (PEPCID) IV STA (02:10)
[2017-07-28] MEDS ORDERED: ANTACID SUSP 30 ML UDC (MYLANTA) PO ONE (02:15)
[2017-07-28] MEDS ORDERED: LIDOCAINE 2% VISCOUS 15 ML UDC PO ONE (02:15)
--- NOTE | 2017-07-28 02:16 | ED Abdominal Pain ---
General Chief Complaint: Abdominal/GI Problems Stated Complaint: UPPER ABD PAIN Nursing Triage Note: PT REPORT EPIGASTRIC PAIN STARTING AT 2330 LAST NIGHT. DENIES N/V/D. COLD HANDS. REPORTS COUGH RECENTLY, BUT IMPROVING. Sepsis Screen: No Definite Risk Source of Information: Patient Exam Limitations: No Limitations History of Present Illness Date Seen by Provider: Jul 28, 2017 Time Seen by Provider: 02:05 Initial Comments Patient presents to ER by private conveyance with a chief complaint he is been having epigastric abdominal pain for the past 2 and half hours. He has not done anything for it. Is not having any nausea vomiting diarrhea rash or fevers or chills. He is not having any shortness of breath. He's had a cough is nonproductive and when he takes deep breaths or coughs it makes the pain worse. Allergies and Home Medications Allergies Coded Allergies: No Known Drug Allergies (Unverified , 03/09/16) Home Medications No Active Prescriptions or Reported Meds Review of Systems Constitutional: No chills, No diaphoresis EENTM: No Blurred Vision, No Double Vision Respiratory: Cough, Denies Shortness of Air, Denies Wheezing Cardiovascular: Denies Chest Pain, Denies Edema Gastrointestinal: See HPI, Denies Abdomen Distended, Abdominal Pain, Denies Constipated, Denies Diarrhea, Denies Difficulty Swallowing, Denies Nausea, Denies Poor Appetite, Denies Vomiting Genitourinary: Denies Burning, Denies Discharge Musculoskeletal: back pain (chronic), No joint pain Skin: No pruritus, No rash Psychiatric/Neurological: Denies Headache, Denies Numbness Past Bvmhcaq-Yxdzba-Ffibul Hx Patient Social History Alcohol Use: Occasionally Uses Number of Drinks Today: GG Alcohol Beverage of Choice: Beer, Whiskey, Vodka Recreational Drug Use: Yes Drug of Choice: MARIJUANA Smoking Status: Current Everyday Smoker Type Used: Cigarettes 2nd Hand Smoke Exposure: No Recent Foreign Travel: No Contact w/Someone Who Travel: No Recent Infectious Disease Expo: No Recent Hopitalizations: No Immunizations Up To Date Tetanus Booster (TDap): Unknown PED Vaccines UTD: No Seasonal Allergies Seasonal Allergies: No Surgeries History of Surgeries: No Respiratory History of Respiratory Disorde: No Cardiovascular History of Cardiac Disorders: No Neurological History of Neurological Disord: No Reproductive System Hx Reproductive Disorders: No Genitourinary History of Genitourinary Disor: No Gastrointestinal History of Gastrointestinal Di: No Musculoskeletal History of Musculoskeletal Dis: Yes Musculoskeletal Disorders: Chronic Back Pain Endocrine History of Endocrine Disorders: No HEENT History of HEENT Disorders: No Cancer History of Cancer: No Psychosocial History of Psychiatric Problem: Yes (PRIOR ETOH INTOXICATION ADMISSIONS) Integumentary History of Skin or Integumenta: No Blood Transfusions History of Blood Disorders: No Family Medical History Significant Family History: No Pertinent Family Hx Physical Exam Vital Signs VS - Last 72 Hours, by Label 07/28/17 02:05 Temp 95.7 Pulse 65 Resp 18 B/P (MAP) 119/84 (96) Capillary Refill : Less Than 3 Seconds General Appearance: WD/WN, no apparent distress HEENT: PERRL/EOMI, pharynx normal (oral mucosa is moist) Respiratory: no respiratory distress, no accessory muscle use Cardiovascular: normal peripheral pulses, regular rate, rhythm, no edema Gastrointestinal: normal bowel sounds, soft, tenderness (mild epigastric tenderness without Echols sign or McBurney's point tenderness.) Neurologic/Psychiatric: alert, normal mood/affect, oriented x 3 Skin: normal color, warm/dry Progress/Results/Core Measures Results/Orders Lab Results Laboratory Tests Test 07/28/17 02:25 Range/Units White Blood Count 9.2 4.3-11.0 10^3/uL Red Blood Count 4.56 4.35-5.85 10^6/uL Hemoglobin 13.8 13.3-17.7 G/DL Hematocrit 39 L 40-54 % Mean Corpuscular Volume 85 80-99 FL Mean Corpuscular Hemoglobin 30 25-34 PG Mean Corpuscular Hemoglobin Concent 36 32-36 G/DL Red Cell Distribution Width 11.6 10.0-14.5 % Platelet Count 278 130-400 10^3/uL Mean Platelet Volume 9.0 7.4-10.4 FL Neutrophils (%) (Auto) 63 42-75 % Lymphocytes (%) (Auto) 27 12-44 % Monocytes (%) (Auto) 8 0-12 % Eosinophils (%) (Auto) 2 0-10 % Basophils (%) (Auto) 0 0-10 % Neutrophils # (Auto) 5.8 1.8-7.8 X 10^3 Lymphocytes # (Auto) 2.5 1.0-4.0 X 10^3 Monocytes # (Auto) 0.8 0.0-1.0 X 10^3 Eosinophils # (Auto) 0.2 0.0-0.3 10^3/uL Basophils # (Auto) 0.0 0.0-0.1 10^3/uL Sodium Level 141 135-145 MMOL/L Potassium Level 4.1 3.6-5.0 MMOL/L Chloride Level 105 98-107 MMOL/L Carbon Dioxide Level 21 21-32 MMOL/L Anion Gap 15 H 5-14 MMOL/L Blood Urea Nitrogen 18 7-18 MG/DL Creatinine 1.09 0.60-1.30 MG/DL Estimat Glomerular Filtration Rate > 60 BUN/Creatinine Ratio 17 Glucose Level 91 70-105 MG/DL Calcium Level 9.9 8.5-10.1 MG/DL Total Bilirubin 0.9 0.1-1.0 MG/DL Aspartate Amino Transf (AST/SGOT) 22 5-34 U/L Alanine Aminotransferase (ALT/SGPT) 30 0-55 U/L Alkaline Phosphatase 76 40-136 U/L Total Protein 7.3 6.4-8.2 GM/DL Albumin 4.5 3.2-4.5 GM/DL Lipase 14 8-78 U/L My Orders Orders - ISABELLA JUAN Cbc With Automated Diff (07/28/17 02:10) Comprehensive Metabolic Panel (07/28/17 02:10) Lipase (07/28/17 02:10) Chest Pa/Lat (2 View) (07/28/17 02:10) Lidocaine 2% Viscous 15 Ml (Xylocaine Vi (07/28/17 02:15) Antacid Suspension (Mylanta Suspension (07/28/17 02:15) Famotidine Injection (Pepcid Injection) (07/28/17 02:10) Saline Lock/Iv-Start (07/28/17 02:22) Medications Given in ED Current Medications Medications Dose Ordered Sig/[place] Route Start Time Stop Time Status Last Admin Dose Admin Al Hydrox/Mg Hydrox/Simethicone 30 ml ONCE ONCE PO 07/28/17 02:15 07/28/17 02:16 DC 07/28/17 02:47 30 ML Lidocaine HCl 15 ml ONCE ONCE PO 07/28/17 02:15 07/28/17 02:16 DC 07/28/17 02:47 15 ML Vital Signs/I&O Vital Sign - Last 12Hours 07/28/17 02:05 Temp 95.7 Pulse 65 Resp 18 B/P (MAP) 119/84 (96) Blood Pressure Mean: 96 Progress Note #1: Time: 02:15 Progress Note Given her pleuritic nature of this pain will get a chest x-ray, basic labs and give him a GI cocktail to help with diagnosis and therapeutic effect. Progress Note #2: Time: 03:00 Progress Note The patient's symptoms resolved with the GI cocktail. Diagnostic Imaging Diagonstic Imaging: Xray Plain Films/CT/US/NM/MRI: chest (2v) Comments No acute cardiopulmonary processes noted. Reviewed: Reviewed by Me Departure Impression Impression: Primary Impression: Acid indigestion Disposition: HOME, SELF-CARE Condition: Improved Departure-Patient Inst. Decision time for Depature: 03:01 Referrals: NO,LOCAL PHYSICIAN (PCP/Family) Primary Care Physician Patient Instructions: Acid Reflux (Gastroesophageal Reflux Disease) in Adults Add. Discharge Instructions: If you have the symptom again you can use calcium carbonate, Tums, Pepcid or other similar antacids to try and control her symptoms. If it becomes persistent then you should follow up with your primary care physician to discuss further evaluation and management. All discharge instructions reviewed with patient and/or family. Voiced understanding. Scripts No Active Prescriptions or Reported Meds ISABELLA JUAN Jul 28, 2017 02:16
[2017-07-28 02:32] LABS: BASOPHILS % (AUTO) 0 % (0-10); EOSINOPHILS # (AUTO) 0.2 10^3/uL (0.0-0.3); EOSINOPHILS % (AUTO) 2 % (0-10); HEMATOCRIT 39 % (40-54); HEMOGLOBIN 13.8 G/DL (13.3-17.7); LYMPHOCYTES # (AUTO) 2.5 X 10^3 (1.0-4.0); LYMPHOCYTES % (AUTO) 27 % (12-44); MEAN CORPUSCULAR HEMOGLOBIN 30 PG (25-34); MEAN CORPUSCULAR HGB CONC 36 G/DL (32-36); MEAN CORPUSCULAR VOLUME 85 FL (80-99); MONOCYTES # (AUTO) 0.8 X 10^3 (0.0-1.0); MONOCYTES % (AUTO) 8 % (0-12); NEUTROPHILS # (AUTO) 5.8 X 10^3 (1.8-7.8); NEUTROPHILS % (AUTO) 63 % (42-75); PLATELET COUNT 278 10^3/uL (130-400); RED BLOOD COUNT 4.56 10^6/uL (4.35-5.85); RED CELL DISTRIBUTION WIDTH 11.6 % (10.0-14.5); WHITE BLOOD COUNT 9.2 10^3/uL (4.3-11.0)
[2017-07-28 02:51] LABS: ALANINE AMINOTRANSFERASE 30 U/L (0-55); ALBUMIN 4.5 GM/DL (3.2-4.5); ALKALINE PHOSPHATASE 76 U/L (40-136); BILIRUBIN,TOTAL 0.9 MG/DL (0.1-1.0); BUN/CREATININE RATIO 17; CALCIUM 9.9 MG/DL (8.5-10.1); CARBON DIOXIDE 21 MMOL/L (21-32); CHLORIDE 105 MMOL/L (98-107); CREATININE SERUM 1.09 MG/DL (0.60-1.30); GFR ESTIMATED > 60; GLUCOSE 91 MG/DL (70-105); LIPASE 14 U/L (8-78); POTASSIUM 4.1 MMOL/L (3.6-5.0); SODIUM 141 MMOL/L (135-145); TOTAL PROTEIN 7.3 GM/DL (6.4-8.2)
[2017-07-28 03:12] VITALS: BP 108/76
--- NOTE | 2017-07-28 06:24 | Diagnostic Imaging Report ---
INDICATION: Shortness of breath with chest pain. Comparison with 01/29/2017. FINDINGS: PA and lateral chest shows the lungs to be well-aerated. There are no infiltrates. There are no masses. Heart is not enlarged. There is no pulmonary edema. No pneumothorax. No pleural effusion. No bony abnormalities. IMPRESSION: Normal PA and lateral chest. No change since previous exam. Dictated by: Dictated on workstation # [id number]
== END 2017-07-28 03:12 | disposition home or self-care (01) ==
LOC: EDUNIT# 01:26 → ER 01:29
DX: K30 Functional dyspepsia (principal); F12.10 Cannabis abuse, uncomplicated; F17.210 Nicotine dependence, cigarettes, uncomplicated
CPT/HCPCS: 36415; 71046; 80053; 83690; 85025; 96374

== ENCOUNTER 2018-08-19 04:26 | Emergency (ER) | payer SELFPAY ==
[~2018-08-19] VITALS: Ht 182.9 cm; Wt 68.0 kg
--- OUTSIDE RECORDS SUMMARY | 2018-08-19 04:34 | XMS REPORT ---
Author Author MUNIRA VÁSQUEZ Organization [facility] Address [address] [place] [address] Care Team Providers Care Assessment Clinician Name Role Phone MUNIRA VÁSQUEZ Unavailable PROBLEMS Type Condition ICD9-CM Code CZS25-OC Code Onset Dates Condition Status SNOMED Code Problem Panic disorder F41.0 Active 530116241 Problem Night terrors F51.4 Active 33057746 Problem Anxiety F41.9 Active 39405633 Problem Other chronic pain G89.29 Active 67410338 ALLERGIES No Known Allergies ENCOUNTERS Encounter Location Date Diagnosis [place] [id number] [address] Oct, Panic disorder F41.0 ; Acute pain of right shoulder M25.511 and Night terrors F51.4 [facility] [address] [place] [id number] [place] [phone] September, Acute pain of right shoulder M25.511 [facility] [address] [place] [id number] [place] [address] Jul, Anxiety F41.9 [place] [address] [address] Jul, Dizziness R42 and Tremor R25.1 [place] [address] [place] [id number] [place] [address] Feb, Low back pain M54.5 and Other chronic pain G89.29 IMMUNIZATIONS No Known Immunizations SOCIAL HISTORY Never Assessed REASON FOR VISIT Dizziness, shaking x1 week----DBennettRN, episode of chest pain x1, back pain x several weeks PLAN OF CARE VITAL SIGNS Height 72 in 2017-08-16 Weight 151 lbs 2017-08-16 Temperature 98.5 degrees Fahrenheit 2017-08-16 Heart Rate 110 bpm 2017-08-16 Respiratory Rate 20 2017-08-16 BMI 20.48 kg/m2 2017-08-16 Blood pressure systolic 112 mmHg 2017-08-16 Blood pressure diastolic 70 mmHg 2017-08-16 MEDICATIONS Medication Instructions Dosage Frequency Start Date End Date Duration Status Naproxen Sodium 550 MG Orally Twice a day 1 tablet 12h Not-Taking Tramadol HCl 50 mg Orally 2 times a day 1 tablet as needed 12h 24 Feb, 2016 Not-Taking Zanaflex 6 MG Orally 2 times a day 1 capsule as needed 12h 24 Feb, 2016 Not-Taking RESULTS No Results PROCEDURES Procedure Date Ordered Result Body Site COMPLETE CBC W/AUTO DIFF WBC August 16, 2017 COMPREHEN METABOLIC PANEL August 16, 2017 ASSAY THYROID STIM HORMONE August 16, 2017 INSTRUCTIONS MEDICATIONS ADMINISTERED No Known Medications MEDICAL (GENERAL) HISTORY Type Description Date Hospitalization History ETOH detox x2
--- OUTSIDE RECORDS SUMMARY | 2018-08-19 04:34 | XMS REPORT ---
Author Author ADONIS BAUM Organization [facility] Address [address] [place] [address] Care Team Providers Care Workforce Development Specialist Name Role Phone ADONIS BAUM Unavailable PROBLEMS Type Condition ICD9-CM Code DPM14-LR Code Onset Dates Condition Status SNOMED Code Problem Panic disorder F41.0 Active 930016182 Problem Night terrors F51.4 Active 93199593 Problem Anxiety F41.9 Active 18769343 Problem Other chronic pain G89.29 Active 17481163 ALLERGIES No Known Allergies ENCOUNTERS Encounter Location Date Diagnosis [facility] [address] [address] Jan, Epigastric pain R10.13 ; Anxiety F41.9 and Acute midline low back pain without sciatica M54.5 [facility] [address] [place] [id number] [place] [address] Oct, Panic disorder F41.0 ; Acute pain of right shoulder M25.511 and Night terrors F51.4 [facility] [address] [place] [id number] [place] [address] September, Acute pain of right shoulder M25.511 [facility] [address] [place] [id number] [place] [address] Jul, Anxiety F41.9 [facility] [address] [address] Jul, Dizziness R42 and Tremor R25.1 [facility] [address] [place] [id number] [place] [address] Feb, Low back pain M54.5 and Other chronic pain G89.29 IMMUNIZATIONS No Known Immunizations SOCIAL HISTORY Never Assessed REASON FOR VISIT follow up on anxiety. Pt states that he has been doing better with the anxiety issues. YNES Miguel, pt also c/o still having back issues and some pain in upper RT abdomen that comes and goes. YNES Miguel PLAN OF CARE Activity Details Follow Up 3-6 mos Reason: VITAL SIGNS Height 72 in 2018-02-15 Weight 152.2 lbs 2018-02-15 Temperature 98.2 degrees Fahrenheit 2018-02-15 Heart Rate 85 bpm 2018-02-15 Respiratory Rate 18 2018-02-15 BMI 20.64 kg/m2 2018-02-15 Blood pressure systolic 100 mmHg 2018-02-15 Blood pressure diastolic 56 mmHg 2018-02-15 MEDICATIONS Medication Instructions Dosage Frequency Start Date End Date Duration Status Citalopram Hydrobromide 20 mg Orally Once a day 1 tablet 24h Oct, 90 day(s Active Ranitidine HCl 150 MG Orally twice a day as needed 1 tablet Jan, 30 day(s) Active Prazosin HCl 2 MG Orally Once a day 1 hr before bed 1 capsule at bedtime Oct, 30 day(s) Active RESULTS No Results PROCEDURES No Known procedures INSTRUCTIONS MEDICATIONS ADMINISTERED No Known Medications MEDICAL (GENERAL) HISTORY Type Description Date Medical History anxiety Surgical History No Surgical history information Hospitalization History ETOH detox x2
--- OUTSIDE RECORDS SUMMARY | 2018-08-19 04:34 | XMS REPORT ---
Author Author MUNIRA VÁSQUEZ Organization [facility] Address [address] [place] [address] Care Team Providers Care Filling Carrier Name Role Phone MUNIRA VÁSQUEZ Unavailable PROBLEMS Type Condition ICD9-CM Code HRG27-IP Code Onset Dates Condition Status SNOMED Code Problem Panic disorder F41.0 Active 065883969 Problem Night terrors F51.4 Active 42923509 Problem Anxiety F41.9 Active 06220346 Problem Other chronic pain G89.29 Active 14819091 ALLERGIES No Information ENCOUNTERS Encounter Location Date Diagnosis [address] [address] Nov, [address] [address] Oct, Panic disorder F41.0 ; Acute pain of right shoulder M25.511 and Night terrors F51.4 [facility] [address] [place] [id number] [place] [address] September, Acute pain of right shoulder M25.511 [place] [id number] [place] [address] Jul, Anxiety F41.9 [place] [id number] [place] [address] Jul, Dizziness R42 and Tremor R25.[address] [address] Feb, Low back pain M54.5 and Other chronic pain G89.29 IMMUNIZATIONS No Known Immunizations SOCIAL HISTORY Never Assessed REASON FOR VISIT PLAN OF CARE VITAL SIGNS MEDICATIONS Medication Instructions Dosage Frequency Start Date End Date Duration Status Paxil 20 mg Orally Once a day 1 tablet in the morning 24h Jul, 30 day(s) Active RESULTS No Results PROCEDURES No Known procedures INSTRUCTIONS MEDICATIONS ADMINISTERED No Known Medications MEDICAL (GENERAL) HISTORY Type Description Date Hospitalization History ETOH detox x2
--- OUTSIDE RECORDS SUMMARY | 2018-08-19 04:34 | XMS REPORT ---
Author Author BOBY WILLETT Organization [facility] Address [address] [place] [address] Care Team Providers Care Bench Chemist Name Role Phone BOBY WILLETT Unavailable PROBLEMS Type Condition ICD9-CM Code KHU11-RJ Code Onset Dates Condition Status SNOMED Code Problem Panic disorder F41.0 Active 214608853 Problem Night terrors F51.4 Active 11649294 Problem Anxiety F41.9 Active 60756551 Problem Other chronic pain G89.29 Active 73240825 ALLERGIES No Known Allergies ENCOUNTERS Encounter Location Date Diagnosis [facility] [address] [place] [id number] [place] [address] Oct, Panic disorder F41.0 ; Acute pain of right shoulder M25.511 and Night terrors F51.4 [facility] [address] [place] [id number] [place] [address] September, Acute pain of right shoulder M25.511 [facility] [address] [place] [id number] [place] [address] Jul, Anxiety F41.9 [facility] [address] [place] [id number] [place] [address] Jul, Dizziness R42 and Tremor R25.1 [facility] [address] [place] [id number] [place] [address] Feb, Low back pain M54.5 and Other chronic pain G89.29 IMMUNIZATIONS No Known Immunizations SOCIAL HISTORY Never Assessed REASON FOR VISIT right shoulder pain for 3-4 days. pt reports he was sleep walking and banged his shoulder on a doorway for 25 minutes. asked him how he was aware he was doing this and the exact time he did this...said people witnessed it and they didnt want to wake him up. [email or web address] PLAN OF CARE Activity Details Follow Up as scheduled Reason: VITAL SIGNS Height 72 in 2017-10-22 Weight 150.0 lbs 2017-10-22 Temperature 98.3 degrees Fahrenheit 2017-10-22 Heart Rate 86 bpm 2017-10-22 Respiratory Rate 20 2017-10-22 BMI 20.34 kg/m2 2017-10-22 Blood pressure systolic 118 mmHg 2017-10-22 Blood pressure diastolic 70 mmHg 2017-10-22 MEDICATIONS Unknown Medications RESULTS No Results PROCEDURES No Known procedures INSTRUCTIONS MEDICATIONS ADMINISTERED No Known Medications MEDICAL (GENERAL) HISTORY Type Description Date Hospitalization History ETOH detox x2
[2018-08-19] MEDS ORDERED: PANTOPRAZOLE 40 MG (PROTONIX) VIAL IV STA (04:44)
[2018-08-19] MEDS ORDERED: LIDOCAINE 2% VISCOUS 15 ML UDC PO ONE (04:45)
[2018-08-19] MEDS ORDERED: ANTACID SUSP 30 ML UDC (MYLANTA) PO ONE (04:45)
--- NOTE | 2018-08-19 04:47 | ED GI ---
General Stated Complaint: ACID REFLUX PAIN Source of Information: Patient History of Present Illness Date Seen by Provider: Aug 19, 2018 Time Seen by Provider: 04:42 Initial Comments PT ARRIVES VIA POV FROM HOME C/O PAIN FROM ACID REFLUX--C/O EPIGASTRIC PAIN THAT WOKE HIM UP AT 0300 TODAY. 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 STATES HE HAD "LUDY AND COKE" TONIGHT TO DRINK NO NAUSEA/VOMITING OR DIARRHEA NO RADIATION OF PAIN NOTHING WORSENS OR IMPROVES PAIN PCP: [facility] Allergies and Home Medications Allergies Coded Allergies: No Known Drug Allergies (Unverified , 03/09/16) Home Medications Hyoscyamine Sulfate 0.125 Mg Tab.subl, 1-2 TAB SL Q4H Prescribed by: DELROY WILLARD on 08/19/18 06 Sucralfate 1 Gm Tablet, 1 GM PO QIDACHS Prescribed by: DELROY WILLARD on 08/19/18 0611 Sulfamethoxazole/Trimethoprim 1 Each Tablet, 1 EACH PO BID Prescribed by: DELROY WILLARD on 08/19/18 0612 Patient Home Medication List Home Medication List Reviewed: Yes Review of Systems Review of Systems Constitutional: no symptoms reported Respiratory: No Symptoms Reported Cardiovascular: No Symptoms Reported Gastrointestinal: See HPI Genitourinary: No Symptoms Reported Musculoskeletal: no symptoms reported Skin: no symptoms reported Psychiatric/Neurological: No Symptoms Reported Endocrine: No Symptoms Reported Past Uvhphit-Ndjaqx-Zilmpz Hx Patient Social History Alcohol Use: Regular Use (VERY HEAVY AT TIMES ) Alcohol Beverage of Choice: Beer, Whiskey, Vodka Recreational Drug Use: Yes (THC) Drug of Choice: MARIJUANA Smoking Status: Current Everyday Smoker (1 PPD) Type Used: Cigarettes 2nd Hand Smoke Exposure: No Recent Foreign Travel: No Contact w/Someone Who Travel: No Recent Hopitalizations: No Immunizations Up To Date Tetanus Booster (TDap): Unknown PED Vaccines UTD: No Seasonal Allergies Seasonal Allergies: No Past Medical History Surgeries: No Respiratory: No Cardiac: No Neurological: No Reproductive Disorders: No Genitourinary: No Gastrointestinal: Yes (NO TESTS) Gastroesophageal Reflux Musculoskeletal: Yes Chronic Back Pain Endocrine: No HEENT: No Cancer: No Psychosocial: Yes (PRIOR ETOH INTOXICATION ADMISSIONS) Integumentary: No Blood Disorders: No Family Medical History No Pertinent Family Hx Physical Exam Vital Signs Vital Signs - First Documented 08/19/18 04:39 Temp 98.5 Pulse 65 Resp 17 B/P (MAP) 130/74 (92) Pulse Ox 99 O2 Delivery Room Air Capillary Refill : Height/Weight/BMI Height: 6'2.00" Weight: 150lbs. 1.0oz. 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, no motor/sensory deficits, alert, normal mood/affect, oriented x 3 Skin: normal color, warm/dry Progress/Results/Core Measures Results/Orders Lab Results Laboratory Tests Test 08/19/18 04:56 08/19/18 05:00 Range/Units White Blood Count 7.7 4.3-11.0 10^3/uL Red Blood Count 4.79 4.35-5.85 10^6/uL Hemoglobin 14.0 13.3-17.7 G/DL Hematocrit 41 40-54 % Mean Corpuscular Volume 85 80-99 FL Mean Corpuscular Hemoglobin 29 25-34 PG Mean Corpuscular Hemoglobin Concent 34 32-36 G/DL Red Cell Distribution Width 11.9 10.0-14.5 % Platelet Count 300 130-400 10^3/uL Mean Platelet Volume 9.2 7.4-10.4 FL Neutrophils (%) (Auto) 58 42-75 % Lymphocytes (%) (Auto) 31 12-44 % Monocytes (%) (Auto) 8 0-12 % Eosinophils (%) (Auto) 3 0-10 % Basophils (%) (Auto) 0 0-10 % Neutrophils # (Auto) 4.4 1.8-7.8 X 10^3 Lymphocytes # (Auto) 2.4 1.0-4.0 X 10^3 Monocytes # (Auto) 0.6 0.0-1.0 X 10^3 Eosinophils # (Auto) 0.2 0.0-0.3 10^3/uL Basophils # (Auto) 0.0 0.0-0.1 10^3/uL Sodium Level 140 135-145 MMOL/L Potassium Level 3.6 3.6-5.0 MMOL/L Chloride Level 105 98-107 MMOL/L Carbon Dioxide Level 26 21-32 MMOL/L Anion Gap 9 5-14 MMOL/L Blood Urea Nitrogen 6 L 7-18 MG/DL Creatinine 0.96 0.60-1.30 MG/DL Estimat Glomerular Filtration Rate > 60 BUN/Creatinine Ratio 6 Glucose Level 121 H 70-105 MG/DL Calcium Level 9.8 8.5-10.1 MG/DL Corrected Calcium 9.4 8.5-10.1 MG/DL Total Bilirubin 0.5 0.1-1.0 MG/DL Aspartate Amino Transf (AST/SGOT) 15 5-34 U/L Alanine Aminotransferase (ALT/SGPT) 14 0-55 U/L Alkaline Phosphatase 73 40-136 U/L Total Protein 7.2 6.4-8.2 GM/DL Albumin 4.5 3.2-4.5 GM/DL Amylase Level 60 25-125 U/L Lipase 22 8-78 U/L Acetaminophen Level < 10 L 10-30 UG/ML Serum Alcohol < 10 <10 MG/DL Urine Color YELLOW Urine Clarity CLEAR Urine pH 6 5-9 Urine Specific [place] 1.025 H 1.016-1.022 Urine Protein 1+ H NEGATIVE Urine Glucose (UA) NEGATIVE NEGATIVE Urine Ketones 1+ H NEGATIVE Urine Nitrite NEGATIVE NEGATIVE Urine Bilirubin NEGATIVE NEGATIVE Urine Urobilinogen 4 H NORMAL MG/DL Urine Leukocyte Esterase 1+ H NEGATIVE Urine RBC (Auto) 1+ H NEGATIVE Urine RBC 2-5 H /HPF Urine WBC 2-5 /HPF Urine Squamous Epithelial Cells 2-5 /HPF Urine Crystals NONE /LPF Urine Bacteria FEW H /HPF Urine Casts NONE /LPF Urine Mucus MODERATE H /LPF Urine Culture Indicated YES Urine Opiates Screen NEGATIVE NEGATIVE Urine Oxycodone Screen NEGATIVE NEGATIVE Urine Methadone Screen NEGATIVE NEGATIVE Urine Propoxyphene Screen NEGATIVE NEGATIVE Urine Barbiturates Screen NEGATIVE NEGATIVE Ur Tricyclic Antidepressants Screen NEGATIVE NEGATIVE Urine Phencyclidine Screen NEGATIVE NEGATIVE Urine Amphetamines Screen NEGATIVE NEGATIVE Urine Methamphetamines Screen NEGATIVE NEGATIVE Urine Benzodiazepines Screen NEGATIVE NEGATIVE Urine Cocaine Screen NEGATIVE NEGATIVE Urine Cannabinoids Screen POSITIVE H NEGATIVE My Orders Orders - DELROY WILLARD Suzanne DO Acetaminophen (08/19/18 04:44) Alcohol (08/19/18 04:44) Amylase (08/19/18 04:44) Cbc With Automated Diff (08/19/18 04:44) Comprehensive Metabolic Panel (08/19/18 04:44) Drug Screen Stat (Urine) (08/19/18 04:44) Lipase (08/19/18 04:44) Ua Culture If Indicated (08/19/18 04:44) Lidocaine 2% Viscous 15 Ml (Xylocaine Vi (08/19/18 04:45) Antacid Suspension (Mylanta Suspension (08/19/18 04:45) Pantoprazole Injection (Protonix Injecti (08/19/18 04:44) Urine Culture (08/19/18 05:00) Medications Given in ED Current Medications Medications Dose Ordered Sig/[place] Route Start Time Stop Time Status Last Admin Dose Admin Al Hydrox/Mg Hydrox/Simethicone 30 ml ONCE ONCE PO 08/19/18 04:45 08/19/18 04:59 DC 08/19/18 05:07 30 ML Lidocaine HCl 15 ml ONCE ONCE PO 08/19/18 04:45 08/19/18 04:59 DC 08/19/18 05:07 15 ML Vital Signs/I&O 08/19/18 04:39 Temp 98.5 Pulse 65 Resp 17 B/P (MAP) 130/74 (92) Pulse Ox 99 O2 Delivery Room Air Progress Progress Note : Progress Note PAIN RESOLVED WITH GI COCKTAIL Departure Impression Primary Impression: Epigastric pain Additional Impressions: GERD SYMPTOMS UTI (urinary tract infection) Illicit drug use Disposition: 01 HOME, SELF-CARE Condition: Improved Departure-Patient Inst. Referrals: [facility] (PCP/Family) Primary Care Physician Patient Instructions: Acid Reflux (Gastroesophageal Reflux Disease), Adult (DC) , Acute Abdomen (Belly Pain), Adult (DC), Urinary Tract Infection, Adult (DC) Add. Discharge Instructions: CLEAR LIQUIDS--WATER, BROTH, JELLO, GATORADE BRATS DIET--BANANAS, RICE, APPLESAUCE, TOAST SALTINS NO ALCOHOL!!! NO DRUGS!!! FOLLOW UP WITH YOUR DR THIS WEEK FOR FURTHER CARE Scripts Sulfamethoxazole/Trimethoprim (Bactrim Ds Tablet) 1 Each Tablet 1 EACH PO BID, #20 TAB Prov: DELROY WILLARD DO 08/19/18 Hyoscyamine Sulfate (Levsin-Sl) 0.125 Mg Tab.subl 1-2 TAB SL Q4H for Abdominal Pain, #10 TAB Prov: DELROY WILLARD DO 08/19/18 Sucralfate (Carafate) 1 Gm Tablet 1 GM PO QIDACHS, #60 TAB Prov: DELROY WILLARD DO 08/19/18 DELROY WILLARD DO Aug 19, 2018 04:47
[2018-08-19 05:04] LABS: BASOPHILS % (AUTO) 0 % (0-10); EOSINOPHILS # (AUTO) 0.2 10^3/uL (0.0-0.3); EOSINOPHILS % (AUTO) 3 % (0-10); HEMATOCRIT 41 % (40-54); LYMPHOCYTES # (AUTO) 2.4 X 10^3 (1.0-4.0); LYMPHOCYTES % (AUTO) 31 % (12-44); MEAN CORPUSCULAR HEMOGLOBIN 29 PG (25-34); MEAN CORPUSCULAR HGB CONC 34 G/DL (32-36); MEAN CORPUSCULAR VOLUME 85 FL (80-99); MEAN PLATELET VOLUME 9.2 FL (7.4-10.4); MONOCYTES # (AUTO) 0.6 X 10^3 (0.0-1.0); MONOCYTES % (AUTO) 8 % (0-12); NEUTROPHILS # (AUTO) 4.4 X 10^3 (1.8-7.8); NEUTROPHILS % (AUTO) 58 % (42-75); PLATELET COUNT 300 10^3/uL (130-400); RED CELL DISTRIBUTION WIDTH 11.9 % (10.0-14.5); WHITE BLOOD COUNT 7.7 10^3/uL (4.3-11.0)
[2018-08-19 05:05] LABS: BILIRUBIN,URINE NEGATIVE (NEGATIVE); CLARITY,URINE CLEAR; COLOR,URINE YELLOW; GLUCOSE, URINE (UA) NEGATIVE (NEGATIVE); KETONES,URINE 1+ (NEGATIVE); LEUKOCYTE ESTERASE ,URINE 1+ (NEGATIVE); NITRITE,URINE NEGATIVE (NEGATIVE); PH,URINE 6 (5-9); PROTEIN,URINE 1+ (NEGATIVE); UROBILINOGEN,URINE 4 MG/DL (NORMAL)
[2018-08-19 05:13] LABS: BACTERIA,URINE FEW /HPF
[2018-08-19 05:18] LABS: AMPHETAMINE SCREEN, URINE NEGATIVE (NEGATIVE); BARBITURATE SCREEN URINE NEGATIVE (NEGATIVE); BENZODIAZEPINES SCREEN URINE NEGATIVE (NEGATIVE); CANNABINOID SCREEN, URINE POSITIVE (NEGATIVE); COCAINE SCREEN URINE NEGATIVE (NEGATIVE); METHADONE STAT NEGATIVE (NEGATIVE); METHAMPHETAMINE SCREEN URINE S NEGATIVE (NEGATIVE); OPIATE SCREEN URINE NEGATIVE (NEGATIVE); OXYCODONE STAT NEGATIVE (NEGATIVE); PROPOXYPHENE STAT NEGATIVE (NEGATIVE); TRICYCLIC ANTIDEPRESSANTS SCRE NEGATIVE (NEGATIVE)
[2018-08-19 05:27] LABS: ALANINE AMINOTRANSFERASE 14 U/L (0-55); ALBUMIN 4.5 GM/DL (3.2-4.5); ALKALINE PHOSPHATASE 73 U/L (40-136); AMYLASE 60 U/L (25-125); BILIRUBIN,TOTAL 0.5 MG/DL (0.1-1.0); BUN/CREATININE RATIO 6; CALCIUM 9.8 MG/DL (8.5-10.1); CARBON DIOXIDE 26 MMOL/L (21-32); CHLORIDE 105 MMOL/L (98-107); CREATININE SERUM 0.96 MG/DL (0.60-1.30); GFR ESTIMATED > 60; GLUCOSE 121 MG/DL (70-105); LIPASE 22 U/L (8-78); POTASSIUM 3.6 MMOL/L (3.6-5.0); SODIUM 140 MMOL/L (135-145); TOTAL PROTEIN 7.2 GM/DL (6.4-8.2)
[2018-08-19 05:31] LABS: ACETAMINOPHEN < 10 UG/ML (10-30)
[2018-08-19] MEDS ORDERED: SUCR1TAB36 PO (06:11)
[2018-08-19] MEDS ORDERED: HYOS0.1283 SL (06:11)
[2018-08-19] MEDS ORDERED: SULF1TAB35 PO (06:12)
[2018-08-19 06:20] VITALS: BP 120/95
== END 2018-08-19 06:20 | disposition home or self-care (01) ==
LOC: EDUNIT# 04:26 → ER 04:30
DX: K21.9 Gastro-esophageal reflux disease without esophagitis (principal); N39.0 Urinary tract infection, site not specified; F19.10 Other psychoactive substance abuse, uncomplicated; F12.10 Cannabis abuse, uncomplicated; F17.210 Nicotine dependence, cigarettes, uncomplicated
CPT/HCPCS: 36415; 80053; 80306; 80320; 80329; 81000; 82150; 83690; 85025; 87088

== ENCOUNTER 2019-11-01 21:15 | Inpatient (IN) | payer SELFPAY ==
[~2019-11-01] VITALS: Ht 183 cm; Wt 68.2 kg
[~2019-11-01 21:15] MED LIST changes: +HYOS0.1283 SL; +SUCR1TAB36 PO; +SULF1TAB35 PO
[2019-11-01] MEDS ORDERED: NS IV 1000 ML 1,000 ML IV SCH ×2 (21:40→23:50)
[2019-11-01] MEDS ORDERED: ONDANSETRON 4 MG/2 ML (SDV) Z0FRAN IVP ONE (21:45)
[2019-11-01] MEDS ORDERED: KETOROLAC 30 MG/ML VIAL IVP ONE (21:45)
[2019-11-01 22:07] LABS: BASOPHILS % (AUTO) 0 % (0-10); EOSINOPHILS % (AUTO) 0 % (0-10); HEMATOCRIT 39 % (40-54); HEMOGLOBIN 13.2 G/DL (13.3-17.7); LYMPHOCYTES # (AUTO) 0.7 X 10^3 (1.0-4.0); LYMPHOCYTES % (AUTO) 4 % (12-44); MEAN CORPUSCULAR HEMOGLOBIN 30 PG (25-34); MEAN CORPUSCULAR HGB CONC 34 G/DL (32-36); MEAN CORPUSCULAR VOLUME 87 FL (80-99); MEAN PLATELET VOLUME 9.3 FL (7.4-10.4); MONOCYTES # (AUTO) 0.3 X 10^3 (0.0-1.0); MONOCYTES % (AUTO) 2 % (0-12); NEUTROPHILS # (AUTO) 15.5 X 10^3 (1.8-7.8); NEUTROPHILS % (AUTO) 93 % (42-75); PLATELET COUNT 249 10^3/uL (130-400); RED CELL DISTRIBUTION WIDTH 12.2 % (10.0-14.5); WHITE BLOOD COUNT 16.6 10^3/uL (4.3-11.0)
[2019-11-01 22:10] LABS: PROTHROMBIN TIME PATIENT 13.6 SEC (12.2-14.7)
[2019-11-01 22:18] LABS: ALANINE AMINOTRANSFERASE 18 U/L (0-55); ALBUMIN 4.4 GM/DL (3.2-4.5); ALKALINE PHOSPHATASE 71 U/L (40-136); BILIRUBIN,TOTAL 0.8 MG/DL (0.1-1.0); BUN/CREATININE RATIO 9; CALCIUM 9.1 MG/DL (8.5-10.1); CARBON DIOXIDE 26 MMOL/L (21-32); CHLORIDE 104 MMOL/L (98-107); CREATININE SERUM 0.98 MG/DL (0.60-1.30); GFR ESTIMATED > 60; GLUCOSE 152 MG/DL (70-105); POTASSIUM 3.5 MMOL/L (3.6-5.0); SODIUM 139 MMOL/L (135-145); TOTAL PROTEIN 7.3 GM/DL (6.4-8.2)
--- OUTSIDE RECORDS SUMMARY | 2019-11-01 22:20 | XMS REPORT | Continuity of Care Document ---
Author Organization Unknown Address Unknown Phone Unavailable Allergies Active Description Code Type Severity Reaction Onset Reported/Identified Relationship to Patient Clinical Status Yes No Known Drug Allergies [id number] Drug Allergy Unknown N/A 03/09/2016 Medications There is no data. Problems Date Dx Coded Attending Type Code Diagnosis Diagnosed By 03/10/2016 JAYCOB THAKKAR DO, Ot F17.210 NICOTINE DEPENDENCE, CIGARETTES, UNCOMPL 03/10/2016 JAYCOB THAKKAR DO Ot F41.9 ANXIETY DISORDER, UNSPECIFIED 03/10/2016 JAYCOB THAKKAR DO Ot G89.29 OTHER CHRONIC PAIN 03/10/2016 JAYCOB THAKKAR DO Ot M54.5 LOW BACK PAIN 03/10/2016 JAYCOB THAKKAR DO Ot R06.02 SHORTNESS OF BREATH 03/10/2016 JAYCOB THAKKAR DO Ot R06.4 HYPERVENTILATION 08/15/2016 MONTSE DO, DELROY K Ot F10.129 ALCOHOL ABUSE WITH INTOXICATION, UNSPECI 08/15/2016 MONTSE DO, DELROY K Ot F17.210 NICOTINE DEPENDENCE, CIGARETTES, UNCOMPL 08/15/2016 MONTSE DO, DELROY K Ot K29.20 ALCOHOLIC GASTRITIS WITHOUT BLEEDING 08/15/2016 MONTSE DO, DELROY K Ot Y90.5 BLOOD ALCOHOL LEVEL OF 100-119 MG/100 ML 08/17/2016 MONTSE DO, DELROY K Ot F10.129 ALCOHOL ABUSE WITH INTOXICATION, UNSPECI 08/17/2016 MONTSE DO, DELROY K Ot F17.210 NICOTINE DEPENDENCE, CIGARETTES, UNCOMPL 08/17/2016 MONTSE DO, DELROY K Ot K29.20 ALCOHOLIC GASTRITIS WITHOUT BLEEDING 08/17/2016 MONTSE DO, DELROY K Ot Y90.5 BLOOD ALCOHOL LEVEL OF 100-119 MG/100 ML 08/17/2016 MONTSE DO, DELROY K Ot F10.129 ALCOHOL ABUSE WITH INTOXICATION, UNSPECI 08/17/2016 MONTSE DO, DELROY K Ot F17.210 NICOTINE DEPENDENCE, CIGARETTES, UNCOMPL 08/17/2016 MONTSE DO, DELROY K Ot K29.20 ALCOHOLIC GASTRITIS WITHOUT BLEEDING 08/17/2016 MONTSE DO, DELROY K Ot Y90.5 BLOOD ALCOHOL LEVEL OF 100-119 MG/100 ML 08/21/2016 NAVAS DO, BIDRIE L Ot F10.1 29 ALCOHOL ABUSE WITH INTOXICATION, UNSPECI 08/21/2016 NAVAS DO, BIRDIE L Ot K59.0 0 CONSTIPATION, UNSPECIFIED 08/21/2016 NAVAS DO, BIRDIE L Ot R10.3 1 RIGHT LOWER QUADRANT PAIN 08/21/2016 NAVAS DO, BIRDIE L Ot Y90.4 BLOOD ALCOHOL LEVEL OF 80-99 MG/100 ML 08/21/2016 MONTSE DO, DELROY K Ot F10.129 ALCOHOL ABUSE WITH INTOXICATION, UNSPECI 08/21/2016 MONTSE DO, DELROY K Ot F17.210 NICOTINE DEPENDENCE, CIGARETTES, UNCOMPL 08/21/2016 MONTSE DO, DELROY K Ot K29.20 ALCOHOLIC GASTRITIS WITHOUT BLEEDING 08/21/2016 MONTSE DO, DELROY K Ot Y90.5 BLOOD ALCOHOL LEVEL OF 100-119 MG/100 ML 08/22/2016 NAVAS DO, BIRDIE L Ot F10.1 29 ALCOHOL ABUSE WITH INTOXICATION, UNSPECI 08/22/2016 NAVAS DO, BIRDIE L Ot K59.0 0 CONSTIPATION, UNSPECIFIED 08/22/2016 NAVAS DO, BIRDIE L Ot R10.3 1 RIGHT LOWER QUADRANT PAIN 08/22/2016 NAVAS DO, BIRDIE L Ot Y90.4 BLOOD ALCOHOL LEVEL OF 80-99 MG/100 ML 01/29/2017 DRAKE HINOJOSA, ISABELLA J Ot F10. 10 ALCOHOL ABUSE, UNCOMPLICATED 01/29/2017 DRAKE HINOJOSA, ISABELLA J Ot R10. 9 UNSPECIFIED ABDOMINAL PAIN 02/01/2017 DRAKE HINOJOSA, ISABELLA J Ot F10. 10 ALCOHOL ABUSE, UNCOMPLICATED 02/01/2017 DRAKE HINOJOSA, ISABELLA J Ot R10. 9 UNSPECIFIED ABDOMINAL PAIN 02/19/2017 ILDA WALKER MD Ot E87. 6 HYPOKALEMIA 02/19/2017 ILDA WALKER MD Ot F10.129 ALCOHOL ABUSE WITH INTOXICATION, UNSPECI 02/19/2017 ILDA WALKER MD Ot F17.210 NICOTINE DEPENDENCE, CIGARETTES, UNCOMPL 02/19/2017 ILDA WALKER MD Ot Y90. 7 BLOOD ALCOHOL LEVEL OF 200-239 MG/100 ML 02/19/2017 ILDA WALKER MD Ot F10.129 ALCOHOL ABUSE WITH INTOXICATION, UNSPECI 02/19/2017 ILDA WALKER MD Ot F17.210 NICOTINE DEPENDENCE, CIGARETTES, UNCOMPL 02/19/2017 AARON HINOJOSA, ILDA Portillo Ot Y90. 7 BLOOD ALCOHOL LEVEL OF 200-239 MG/100 ML 02/21/2017 ILDA WALKER MD Ot F10.129 ALCOHOL ABUSE WITH INTOXICATION, UNSPECI 02/21/2017 ILDA WALKER MD Ot F17.210 NICOTINE DEPENDENCE, CIGARETTES, UNCOMPL 02/21/2017 ILDA WALKER MD Ot Y90. 7 BLOOD ALCOHOL LEVEL OF 200-239 MG/100 ML 02/24/2017 DRAKE HINOJOSA, ISABELLA Green Ot F10. 10 ALCOHOL ABUSE, UNCOMPLICATED 02/24/2017 DRAKE HINOJOSA, ISABELLA J Ot R10. 9 UNSPECIFIED ABDOMINAL PAIN 07/28/2017 DRAKE HINOJOSA, ISABELLA J Ot F12. 10 CANNABIS ABUSE, UNCOMPLICATED 07/28/2017 DRAKE HINOJOSA, ISABELLA J Ot F17.210 NICOTINE DEPENDENCE, CIGARETTES, UNCOMPL 07/28/2017 DRAKE HINOJOSA, ISABELLA J Ot K30 FUNCTIONAL DYSPEPSIA 07/28/2017 DRAKE HINOJOSA, ISABELLA J Ot R10. 13 EPIGASTRIC PAIN 08/21/2018 MONTSE PAREDES DELROY K Ot F12.10 CANNABIS ABUSE, UNCOMPLICATED 08/21/2018 MONTSE DO DELROY K Ot F17.210 NICOTINE DEPENDENCE, CIGARETTES, UNCOMPL 08/21/2018 MONTSE DO DELROY K Ot F19.10 OTHER PSYCHOACTIVE SUBSTANCE ABUSE, UNCO 08/21/2018 MONTSE DO DELROY K Ot K21.9 GASTRO-ESOPHAGEAL REFLUX DISEASE WITHOUT 08/21/2018 MONTSE DO DELROY K Ot N39.0 URINARY TRACT INFECTION, SITE NOT SPECIF 08/21/2018 MONTSE PAREDES DELROY K Ot F12.10 CANNABIS ABUSE, UNCOMPLICATED 08/21/2018 MONTSE DO DELROY K Ot F17.210 NICOTINE DEPENDENCE, CIGARETTES, UNCOMPL 08/21/2018 MONTSE DO DELROY K Ot F19.10 OTHER PSYCHOACTIVE SUBSTANCE ABUSE, UNCO 08/21/2018 MONTSE DO, DELROY K Ot K21.9 GASTRO-ESOPHAGEAL REFLUX DISEASE WITHOUT 08/21/2018 DELROY WILLARD DO Ot N39.0 URINARY TRACT INFECTION, SITE NOT SPECIF 08/25/2018 DELROY WILLARD DO Ot F12.10 CANNABIS ABUSE, UNCOMPLICATED 08/25/2018 DELROY WILLARD DO Ot F17.210 NICOTINE DEPENDENCE, CIGARETTES, UNCOMPL 08/25/2018 DELROY WILLARD DO Ot F19.10 OTHER PSYCHOACTIVE SUBSTANCE ABUSE, UNCO 08/25/2018 DELROY WILLARD DO Ot K21.9 GASTRO-ESOPHAGEAL REFLUX DISEASE WITHOUT 08/25/2018 DELROY WILLARD DO Ot N39.0 URINARY TRACT INFECTION, SITE NOT SPECIF Procedures There is no data. Results Test Result Range Complete blood count (CBC) with automate d white blood cell (WBC) differential - 08/15/16 00:28 Blood leukocytes automated count (number/volume) 7.5 10*3/uL 4.3-11.0 Blood erythrocytes automated count (number/volume) 4.61 10*6/uL 4.35-5.85 Venous blood hemoglobin measurement (mass/volume) 13.6 g/dL 13.3-17.7 Blood hematocrit (volume fraction) 39 % 40-54 Automated erythrocyte mean corpuscular volume 84 [ foz_us] 80-99 Automated erythrocyte mean corpuscular h emoglobin (mass per erythrocyte) 30 pg 25-34 Automated erythrocyte mean corpuscular h emoglobin concentration measurement (mass/volume) 35 g/dL 32-36 Automated erythrocyte distribution width ratio 11. 9 % 10.0- 14.5 Automated blood platelet count (count/volume) 251 10*3/uL 130-400 Automated blood platelet mean volume measurement 9.2 [foz_us] 7.4-10.4 Automated blood neutrophils/100 leukocytes 40 % 42-75 Automated blood lymphocytes/100 leukocytes 50 % 12-44 Blood monocytes/100 leukocytes 7 % 0-12 Automated blood eosinophils/100 leukocytes 3 % 0-10 Automated blood basophils/100 leukocytes 0 % 0-10 Blood neutrophils automated count (number/volume) 3.0 10*3 1.8-7.8 Blood lymphocytes automated count (number/volume) 3.8 10*3 1.0-4.0 Blood monocytes automated count (number/volume) 0. 5 10*3 0.0-1.0 Automated eosinophil count 0.2 10*3/uL 0 .0-0.3 Automated blood basophil count (count/volume) 0.0 10*3/uL 0.0-0.1 PT panel in platelet poor plasma by coag ulation assay - 08/15/16 00:28 Prothrombin time (PT) in platelet poor plasma by coagu lation assay 14.2 s 12.2-14.7 INR in platelet poor plasma or blood by coagulation as say 1.1 0.8-1.4 Activated partial thromboplastin time (a PTT) in platelet poor plasma bycoagulation assay - 08/15/16 00:28 Activated partial thromboplastin time (a PTT) in platelet poor plasma bycoagulation assay 26 s 24-35 Comprehensive metabolic panel - 08/15/16 00:28 Serum or plasma sodium measurement (moles/volume) 139 mmol/L 135-145 Serum or plasma potassium measurement (moles/volume) 3.5 mmol/L 3.6-5.0 Serum or plasma chloride measurement (moles/volume) 107 mmol/L 98-107 Carbon dioxide 16 mmol/L 21-32 Serum or plasma anion gap determination (moles/volume) 16 mmol/L 5-14 Serum or plasma urea nitrogen measurement (mass/volume ) 10 mg/dL 7-18 Serum or plasma creatinine measurement (mass/volume) 0.83 mg/dL 0.60-1.30 Serum or plasma urea nitrogen/creatinine mass ratio 12 NRG Serum or plasma creatinine measurement w ith calculation of estimated glomerular filtration rate > NRG Serum or plasma glucose measurement (mass/volume) 101 mg/dL 70-105 Serum or plasma calcium measurement (mass/volume) 9.5 mg/dL 8.5-10.1 Serum or plasma total bilirubin measurement (mass/volu me) 1.1 mg/dL 0.1-1.0 Serum or plasma alkaline phosphatase ángel surement (enzymatic activity/volume) 71 U/L 40-136 Serum or plasma aspartate aminotransfera se measurement (enzymatic activity/volume) 22 U/L 5-34 Serum or plasma alanine aminotransferase measurement (enzymatic activity/volume) 12 U/L 0-55 Serum or plasma protein measurement (mass/volume) 6.7 g/dL 6.4-8.2 Serum or plasma albumin measurement (mass/volume) 4.4 g/dL 3.2-4.5 Serum or plasma amylase measurement (enz ymatic activity/volume) - 08/15/16 00:28 Serum or plasma amylase measurement (enzymatic activit y/volume) 38 U/L 25-125 Lipase - 08/15/16 00:28 Lipase 7 U/L 8-78 Serum or plasma ethanol measurement (mas s/volume) - 08/15/16 00:28 Serum or plasma ethanol measurement (mass/volume) 109 mg/dL <10 Urine drug screening test - 08/15/16 01: 12 Urine phencyclidine detection by screening method NEGATIVE NEGATIVE Urine benzodiazepines detection by screening method NEGATIVE NEGATIVE Urine cocaine detection NEGATIVE NEGATI VE Urine amphetamines detection by screening method N EGATIVE NEGATIVE Urine methamphetamine detection by screening method NEGATIVE NEGATIVE Urine cannabinoids detection by screening method N EGATIVE NEGATIVE Urine opiates detection by screening method NEGATI VE NEGATIVE Urine barbiturates detection NEGATIVE N EGATIVE Screening urine tricyclic antidepressants detection NEGATIVE NEGATIVE Urine methadone detection by screening method NEGA TIVE NEGATIVE Urine oxycodone detection NEGATIVE NEGA TIVE Urine propoxyphene detection NEGATIVE N EGATIVE Complete blood count (CBC) with automate d white blood cell (WBC) differential - 08/20/16 23:20 Blood leukocytes automated count (number/volume) 10.4 10*3/uL 4.3-11.0 Blood erythrocytes automated count (number/volume) 4.66 10*6/uL 4.35-5.85 Venous blood hemoglobin measurement (mass/volume) 13.7 g/dL 13.3-17.7 Blood hematocrit (volume fraction) 39 % 40-54 Automated erythrocyte mean corpuscular volume 83 [ foz_us] 80-99 Automated erythrocyte mean corpuscular h emoglobin (mass per erythrocyte) 29 pg 25-34 Automated erythrocyte mean corpuscular h emoglobin concentration measurement (mass/volume) 36 g/dL 32-36 Automated erythrocyte distribution width ratio 11. 9 % 10.0- 14.5 Automated blood platelet count (count/volume) 301 10*3/uL 130-400 Automated blood platelet mean volume measurement 9.2 [foz_us] 7.4-10.4 Automated blood neutrophils/100 leukocytes 60 % 42-75 Automated blood lymphocytes/100 leukocytes 31 % 12-44 Blood monocytes/100 leukocytes 8 % 0-12 Automated blood eosinophils/100 leukocytes 1 % 0-10 Automated blood basophils/100 leukocytes 0 % 0-10 Blood neutrophils automated count (number/volume) 6.2 10*3 1.8-7.8 Blood lymphocytes automated count (number/volume) 3.3 10*3 1.0-4.0 Blood monocytes automated count (number/volume) 0. 8 10*3 0.0-1.0 Automated eosinophil count 0.1 10*3/uL 0 .0-0.3 Automated blood basophil count (count/volume) 0.0 10*3/uL 0.0-0.1 Serum or plasma amylase measurement (enz ymatic activity/volume) - 08/20/16 23:20 Serum or plasma amylase measurement (enzymatic activit y/volume) 33 U/L 25-125 Serum or plasma C reactive protein measu rement (mass/volume) - 08/20/16 23:20 Serum or plasma C reactive protein measurement (mass/v olume) 0.01 mg/dL 0.00-0.50 Serum or plasma ethanol measurement (mas s/volume) - 08/20/16 23:20 Serum or plasma ethanol measurement (mass/volume) 90 mg/dL <10 Comprehensive metabolic panel - 08/20/16 23:20 Serum or plasma sodium measurement (moles/volume) 141 mmol/L 135-145 Serum or plasma potassium measurement (moles/volume) 3.1 mmol/L 3.6-5.0 Serum or plasma chloride measurement (moles/volume) 107 mmol/L 98-107 Carbon dioxide 20 mmol/L 21-32 Serum or plasma anion gap determination (moles/volume) 14 mmol/L 5-14 Serum or plasma urea nitrogen measurement (mass/volume ) 8 mg/dL 7-18 Serum or plasma creatinine measurement (mass/volume) 0.90 mg/dL 0.60-1.30 Serum or plasma urea nitrogen/creatinine mass ratio 9 NRG Serum or plasma creatinine measurement w ith calculation of estimated glomerular filtration rate > NRG Serum or plasma glucose measurement (mass/volume) 97 mg/dL 70-105 Serum or plasma calcium measurement (mass/volume) 9.9 mg/dL 8.5-10.1 Serum or plasma total bilirubin measurement (mass/volu me) 1.3 mg/dL 0.1-1.0 Serum or plasma alkaline phosphatase ángel surement (enzymatic activity/volume) 76 U/L 40-136 Serum or plasma aspartate aminotransfera se measurement (enzymatic activity/volume) 14 U/L 5-34 Serum or plasma alanine aminotransferase measurement (enzymatic activity/volume) 10 U/L 0-55 Serum or plasma protein measurement (mass/volume) 6.9 g/dL 6.4-8.2 Serum or plasma albumin measurement (mass/volume) 4.7 g/dL 3.2-4.5 Complete urinalysis with reflex to cultu re - 08/20/16 23:35 Urine color determination YELLOW NRG Urine clarity determination SLIGHTLY CLOUDY NRG Urine pH measurement by test strip 5 5-9 Specific gravity of urine by test strip 1.025 1.016-1.022 Urine protein assay by test strip, semi-quantitative 1+ NEGATIVE Urine glucose detection by automated test strip NE GATIVE NEGATIVE Erythrocytes detection in urine sediment by light micr oscopy 1+ NEGATIVE Urine ketones detection by automated test strip NE GATIVE NEGATIVE Urine nitrite detection by test strip NEGATIVE NEGATIVE Urine total bilirubin detection by test strip NEGA TIVE NEGATIVE Urine urobilinogen measurement by automated test strip (mass/volume) 1 mg/dL NORMAL Urine leukocyte esterase detection by dipstick 1+ NEGATIVE Automated urine sediment erythrocyte cou nt by microscopy (number/high power field) RARE NRG Automated urine sediment leukocyte count by microscopy (number/high power field) RARE NRG Bacteria detection in urine sediment by light microsco py TRACE NRG Squamous epithelial cells detection in u rine sediment by light microscopy 0-2 NRG Crystals detection in urine sediment by light microsco py NONE NRG Casts detection in urine sediment by light microscopy NONE NRG Mucus detection in urine sediment by light microscopy LARGE NRG Complete urinalysis with reflex to culture NO NRG Urine drug screening test - 08/20/16 23: 35 Urine phencyclidine detection by screening method NEGATIVE NEGATIVE Urine benzodiazepines detection by screening method NEGATIVE NEGATIVE Urine cocaine detection NEGATIVE NEGATI VE Urine amphetamines detection by screening method N EGATIVE NEGATIVE Urine methamphetamine detection by screening method NEGATIVE NEGATIVE Urine cannabinoids detection by screening method N EGATIVE NEGATIVE Urine opiates detection by screening method NEGATI VE NEGATIVE Urine barbiturates detection NEGATIVE N EGATIVE Screening urine tricyclic antidepressants detection NEGATIVE NEGATIVE Urine methadone detection by screening method NEGA TIVE NEGATIVE Urine oxycodone detection NEGATIVE NEGA TIVE Urine propoxyphene detection NEGATIVE N EGATIVE Complete blood count (CBC) with automate d white blood cell (WBC) differential - 01/29/17 21:50 Blood leukocytes automated count (number/volume) 11.0 10*3/uL 4.3-11.0 Blood erythrocytes automated count (number/volume) 4.53 10*6/uL 4.35-5.85 Venous blood hemoglobin measurement (mass/volume) 13.4 g/dL 13.3-17.7 Blood hematocrit (volume fraction) 38 % 40-54 Automated erythrocyte mean corpuscular volume 84 [ foz_us] 80-99 Automated erythrocyte mean corpuscular h emoglobin (mass per erythrocyte) 30 pg 25-34 Automated erythrocyte mean corpuscular h emoglobin concentration measurement (mass/volume) 35 g/dL 32-36 Automated erythrocyte distribution width ratio 11. 9 % 10.0- 14.5 Automated blood platelet count (count/volume) 266 10*3/uL 130-400 Automated blood platelet mean volume measurement 9.3 [foz_us] 7.4-10.4 Automated blood neutrophils/100 leukocytes 70 % 42-75 Automated blood lymphocytes/100 leukocytes 25 % 12-44 Blood monocytes/100 leukocytes 5 % 0-12 Automated blood eosinophils/100 leukocytes 1 % 0-10 Automated blood basophils/100 leukocytes 0 % 0-10 Blood neutrophils automated count (number/volume) 7.7 10*3 1.8-7.8 Blood lymphocytes automated count (number/volume) 2.7 10*3 1.0-4.0 Blood monocytes automated count (number/volume) 0. 5 10*3 0.0-1.0 Automated eosinophil count 0.1 10*3/uL 0 .0-0.3 Automated blood basophil count (count/volume) 0.0 10*3/uL 0.0-0.1 Comprehensive metabolic panel - 01/29/17 21:50 Serum or plasma sodium measurement (moles/volume) 140 mmol/L 135-145 Serum or plasma potassium measurement (moles/volume) 3.4 mmol/L 3.6-5.0 Serum or plasma chloride measurement (moles/volume) 106 mmol/L 98-107 Carbon dioxide 19 mmol/L 21-32 Serum or plasma anion gap determination (moles/volume) 15 mmol/L 5-14 Serum or plasma urea nitrogen measurement (mass/volume ) 10 mg/dL 7-18 Serum or plasma creatinine measurement (mass/volume) 0.78 mg/dL 0.60-1.30 Serum or plasma urea nitrogen/creatinine mass ratio 13 NRG Serum or plasma creatinine measurement w ith calculation of estimated glomerular filtration rate > NRG Serum or plasma glucose measurement (mass/volume) 106 mg/dL 70-105 Serum or plasma calcium measurement (mass/volume) 9.2 mg/dL 8.5-10.1 Serum or plasma total bilirubin measurement (mass/volu me) 0.6 mg/dL 0.1-1.0 Serum or plasma alkaline phosphatase ángel surement (enzymatic activity/volume) 70 U/L 40-136 Serum or plasma aspartate aminotransfera se measurement (enzymatic activity/volume) 15 U/L 5-34 Serum or plasma alanine aminotransferase measurement (enzymatic activity/volume) 13 U/L 0-55 Serum or plasma protein measurement (mass/volume) 7.1 g/dL 6.4-8.2 Serum or plasma albumin measurement (mass/volume) 4.4 g/dL 3.2-4.5 Magnesium - 01/29/17 21:50 Magnesium 2.4 mg/dL 1.8-2.4 Lipase - 01/29/17 21:50 Lipase 9 U/L 8-78 Serum or plasma ethanol measurement (mas s/volume) - 01/29/17 21:50 Serum or plasma ethanol measurement (mass/volume) 109 mg/dL <10 Complete urinalysis with reflex to cultu re - 01/29/17 22:15 Urine color determination YELLOW NRG Urine clarity determination CLEAR NR G Urine pH measurement by test strip 6 5-9 Specific gravity of urine by test strip 1.015 1.016-1.022 Urine protein assay by test strip, semi-quantitative NEGATIVE NEGATIVE Urine glucose detection by automated test strip NE GATIVE NEGATIVE Erythrocytes detection in urine sediment by light micr oscopy 1+ NEGATIVE Urine ketones detection by automated test strip NE GATIVE NEGATIVE Urine nitrite detection by test strip NEGATIVE NEGATIVE Urine total bilirubin detection by test strip NEGA TIVE NEGATIVE Urine urobilinogen measurement by automated test strip (mass/volume) NORMAL NORMAL Urine leukocyte esterase detection by dipstick NEG ATIVE NEGATIVE Automated urine sediment erythrocyte cou nt by microscopy (number/high power field) [HPF] NRG Automated urine sediment leukocyte count by microscopy (number/high power field) [HPF] NRG Bacteria detection in urine sediment by light microsco py NONE NRG Crystals detection in urine sediment by light microsco py NONE NRG Casts detection in urine sediment by light microscopy NONE NRG Mucus detection in urine sediment by light microscopy TRACE NRG Complete urinalysis with reflex to culture NO NRG Urine drug screening test - 01/29/17 22: 15 Urine phencyclidine detection by screening method NEGATIVE NEGATIVE Urine benzodiazepines detection by screening method NEGATIVE NEGATIVE Urine cocaine detection NEGATIVE NEGATI VE Urine amphetamines detection by screening method N EGATIVE NEGATIVE Urine methamphetamine detection by screening method NEGATIVE NEGATIVE Urine cannabinoids detection by screening method N EGATIVE NEGATIVE Urine opiates detection by screening method NEGATI VE NEGATIVE Urine barbiturates detection NEGATIVE N EGATIVE Screening urine tricyclic antidepressants detection NEGATIVE NEGATIVE Urine methadone detection by screening method NEGA TIVE NEGATIVE Urine oxycodone detection NEGATIVE NEGA TIVE Urine propoxyphene detection NEGATIVE N EGATIVE Complete blood count (CBC) with automate d white blood cell (WBC) differential - 02/18/17 20:28 Blood leukocytes automated count (number/volume) 10.2 10*3/uL 4.3-11.0 Blood erythrocytes automated count (number/volume) 4.58 10*6/uL 4.35-5.85 Venous blood hemoglobin measurement (mass/volume) 13.5 g/dL 13.3-17.7 Blood hematocrit (volume fraction) 39 % 40-54 Automated erythrocyte mean corpuscular volume 85 [ foz_us] 80-99 Automated erythrocyte mean corpuscular h emoglobin (mass per erythrocyte) 30 pg 25-34 Automated erythrocyte mean corpuscular h emoglobin concentration measurement (mass/volume) 35 g/dL 32-36 Automated erythrocyte distribution width ratio 11. 9 % 10.0- 14.5 Automated blood platelet count (count/volume) 410 10*3/uL 130-400 Automated blood platelet mean volume measurement 9.2 [foz_us] 7.4-10.4 Automated blood neutrophils/100 leukocytes 32 % 42-75 Automated blood lymphocytes/100 leukocytes 56 % 12-44 Blood monocytes/100 leukocytes 10 % 0-12 Automated blood eosinophils/100 leukocytes 2 % 0-10 Automated blood basophils/100 leukocytes 0 % 0-10 Blood neutrophils automated count (number/volume) 3.3 10*3 1.8-7.8 Blood lymphocytes automated count (number/volume) 5.7 10*3 1.0-4.0 Blood monocytes automated count (number/volume) 1. 0 10*3 0.0-1.0 Automated eosinophil count 0.2 10*3/uL 0 .0-0.3 Automated blood basophil count (count/volume) 0.0 10*3/uL 0.0-0.1 Comprehensive metabolic panel - 02/18/17 20:28 Serum or plasma sodium measurement (moles/volume) 141 mmol/L 135-145 Serum or plasma potassium measurement (moles/volume) 2.8 mmol/L 3.6-5.0 Serum or plasma chloride measurement (moles/volume) 107 mmol/L 98-107 Carbon dioxide 20 mmol/L 21-32 Serum or plasma anion gap determination (moles/volume) 14 mmol/L 5-14 Serum or plasma urea nitrogen measurement (mass/volume ) 10 mg/dL 7-18 Serum or plasma creatinine measurement (mass/volume) 0.82 mg/dL 0.60-1.30 Serum or plasma urea nitrogen/creatinine mass ratio 12 NRG Serum or plasma creatinine measurement w ith calculation of estimated glomerular filtration rate > NRG Serum or plasma glucose measurement (mass/volume) 139 mg/dL 70-105 Serum or plasma calcium measurement (mass/volume) 9.4 mg/dL 8.5-10.1 Serum or plasma total bilirubin measurement (mass/volu me) 0.8 mg/dL 0.1-1.0 Serum or plasma alkaline phosphatase ángel surement (enzymatic activity/volume) 83 U/L 40-136 Serum or plasma aspartate aminotransfera se measurement (enzymatic activity/volume) 13 U/L 5-34 Serum or plasma alanine aminotransferase measurement (enzymatic activity/volume) 11 U/L 0-55 Serum or plasma protein measurement (mass/volume) 7.3 g/dL 6.4-8.2 Serum or plasma albumin measurement (mass/volume) 4.5 g/dL 3.2-4.5 Serum or plasma salicylates measurement (mass/volume) - 02/18/17 20:28 Serum or plasma salicylates measurement (mass/volume) < mg/dL 5.0-20.0 Serum or plasma acetaminophen measuremen t (mass/volume) - 02/18/17 20:28 Serum or plasma acetaminophen measurement (mass/volume ) < ug/mL 10-30 Serum or plasma ethanol measurement (mas s/volume) - 02/18/17 20:28 Serum or plasma ethanol measurement (mass/volume) 219 mg/dL <10 Complete blood count (CBC) with automate d white blood cell (WBC) differential - 02/19/17 05:02 Blood leukocytes automated count (number/volume) 7.5 10*3/uL 4.3-11.0 Blood erythrocytes automated count (number/volume) 4.32 10*6/uL 4.35-5.85 Venous blood hemoglobin measurement (mass/volume) 12.6 g/dL 13.3-17.7 Blood hematocrit (volume fraction) 37 % 40-54 Automated erythrocyte mean corpuscular volume 87 [ foz_us] 80-99 Automated erythrocyte mean corpuscular h emoglobin (mass per erythrocyte) 29 pg 25-34 Automated erythrocyte mean corpuscular h emoglobin concentration measurement (mass/volume) 34 g/dL 32-36 Automated erythrocyte distribution width ratio 12. 0 % 10.0- 14.5 Automated blood platelet count (count/volume) 265 10*3/uL 130-400 Automated blood platelet mean volume measurement 9.4 [foz_us] 7.4-10.4 Automated blood neutrophils/100 leukocytes 64 % 42-75 Automated blood lymphocytes/100 leukocytes 27 % 12-44 Blood monocytes/100 leukocytes 8 % 0-12 Automated blood eosinophils/100 leukocytes 1 % 0-10 Automated blood basophils/100 leukocytes 0 % 0-10 Blood neutrophils automated count (number/volume) 4.8 10*3 1.8-7.8 Blood lymphocytes automated count (number/volume) 2.0 10*3 1.0-4.0 Blood monocytes automated count (number/volume) 0. 6 10*3 0.0-1.0 Automated eosinophil count 0.1 10*3/uL 0 .0-0.3 Automated blood basophil count (count/volume) 0.0 10*3/uL 0.0-0.1 Whole blood basic metabolic panel - 01/29 08/13 05:02 Serum or plasma sodium measurement (moles/volume) 144 mmol/L 135-145 Serum or plasma potassium measurement (moles/volume) 4.9 mmol/L 3.6-5.0 Serum or plasma chloride measurement (moles/volume) 112 mmol/L 98-107 Carbon dioxide 24 mmol/L 21-32 Serum or plasma anion gap determination (moles/volume) 8 mmol/L 5-14 Serum or plasma urea nitrogen measurement (mass/volume ) 7 mg/dL 7-18 Serum or plasma creatinine measurement (mass/volume) 0.72 mg/dL 0.60-1.30 Serum or plasma urea nitrogen/creatinine mass ratio 10 NRG Serum or plasma creatinine measurement w ith calculation of estimated glomerular filtration rate > NRG Serum or plasma glucose measurement (mass/volume) 99 mg/dL 70-105 Serum or plasma calcium measurement (mass/volume) 8.4 mg/dL 8.5-10.1 Serum or plasma phosphate measurement (m ass/volume) - 02/19/17 05:02 Serum or plasma phosphate measurement (mass/volume) 4.0 mg/dL 2.3-4.7 Magnesium - 02/19/17 05:02 Magnesium 1.9 mg/dL 1.8-2.4 Complete blood count (CBC) with automate d white blood cell (WBC) differential - 07/28/17 02:25 Blood leukocytes automated count (number/volume) 9.2 10*3/uL 4.3-11.0 Blood erythrocytes automated count (number/volume) 4.56 10*6/uL 4.35-5.85 Venous blood hemoglobin measurement (mass/volume) 13.8 g/dL 13.3-17.7 Blood hematocrit (volume fraction) 39 % 40-54 Automated erythrocyte mean corpuscular volume 85 [ foz_us] 80-99 Automated erythrocyte mean corpuscular h emoglobin (mass per erythrocyte) 30 pg 25-34 Automated erythrocyte mean corpuscular h emoglobin concentration measurement (mass/volume) 36 g/dL 32-36 Automated erythrocyte distribution width ratio 11. 6 % 10.0- 14.5 Automated blood platelet count (count/volume) 278 10*3/uL 130-400 Automated blood platelet mean volume measurement 9.0 [foz_us] 7.4-10.4 Automated blood neutrophils/100 leukocytes 63 % 42-75 Automated blood lymphocytes/100 leukocytes 27 % 12-44 Blood monocytes/100 leukocytes 8 % 0-12 Automated blood eosinophils/100 leukocytes 2 % 0-10 Automated blood basophils/100 leukocytes 0 % 0-10 Blood neutrophils automated count (number/volume) 5.8 10*3 1.8-7.8 Blood lymphocytes automated count (number/volume) 2.5 10*3 1.0-4.0 Blood monocytes automated count (number/volume) 0. 8 10*3 0.0-1.0 Automated eosinophil count 0.2 10*3/uL 0 .0-0.3 Automated blood basophil count (count/volume) 0.0 10*3/uL 0.0-0.1 Comprehensive metabolic panel - 07/28/17 02:25 Serum or plasma sodium measurement (moles/volume) 141 mmol/L 135-145 Serum or plasma potassium measurement (moles/volume) 4.1 mmol/L 3.6-5.0 Serum or plasma chloride measurement (moles/volume) 105 mmol/L 98-107 Carbon dioxide 21 mmol/L 21-32 Serum or plasma anion gap determination (moles/volume) 15 mmol/L 5-14 Serum or plasma urea nitrogen measurement (mass/volume ) 18 mg/dL 7-18 Serum or plasma creatinine measurement (mass/volume) 1.09 mg/dL 0.60-1.30 Serum or plasma urea nitrogen/creatinine mass ratio 17 NRG Serum or plasma creatinine measurement w ith calculation of estimated glomerular filtration rate > NRG Serum or plasma glucose measurement (mass/volume) 91 mg/dL 70-105 Serum or plasma calcium measurement (mass/volume) 9.9 mg/dL 8.5-10.1 Serum or plasma total bilirubin measurement (mass/volu me) 0.9 mg/dL 0.1-1.0 Serum or plasma alkaline phosphatase ángel surement (enzymatic activity/volume) 76 U/L 40-136 Serum or plasma aspartate aminotransfera se measurement (enzymatic activity/volume) 22 U/L 5-34 Serum or plasma alanine aminotransferase measurement (enzymatic activity/volume) 30 U/L 0-55 Serum or plasma protein measurement (mass/volume) 7.3 g/dL 6.4-8.2 Serum or plasma albumin measurement (mass/volume) 4.5 g/dL 3.2-4.5 Lipase - 07/28/17 02:25 Lipase 14 U/L 8-78 CMP - 08/16/17 14:59 GLUCOSE 91 mg/dL 65-99 UREA NITROGEN (BUN) 9 mg/dL 7-25 CREATININE 0.95 mg/dL 0.60-1.35 eGFR NON-AFR. NEPALESE 113 mL/min/1.73m2 > OR = 60 eGFR 131 mL/min/1.73m2 > OR = 60 BUN/CREATININE RATIO NOT APPLICABLE (calc) 6-22 SODIUM 139 mmol/L 135-146 POTASSIUM 4.2 mmol/L 3.5-5.3 CHLORIDE 106 mmol/L 98-110 CARBON DIOXIDE 28 mmol/L 20-31 CALCIUM 10.0 mg/dL 8.6-10.3 PROTEIN, TOTAL 7.6 g/dL 6.1-8.1 ALBUMIN 5.1 g/dL 3.6-5.1 GLOBULIN 2.5 g/dL (calc) 1.9-3.7 ALBUMIN/GLOBULIN RATIO 2.0 (calc) 1.0-2. 5 BILIRUBIN, TOTAL 1.6 mg/dL 0.2-1.2 ALKALINE PHOSPHATASE 81 U/L 40-115 AST 18 U/L 10-40 ALT 11 U/L 9-46 CBC - 08/16/17 14:59 WHITE BLOOD CELL COUNT 5.1 Thousand/uL 3 .8-10.8 RED BLOOD CELL COUNT 4.93 Million/uL 4.2 0-5.80 HEMOGLOBIN 14.4 g/dL 13.2-17.1 HEMATOCRIT 42.9 % 38.5-50.0 MCV 87.0 fL 80.0-100.0 MCH 29.2 pg 27.0-33.0 MCHC 33.6 g/dL 32.0-36.0 RDW 12.2 % 11.0-15.0 PLATELET COUNT 281 Thousand/uL 140-400 MPV 9.5 fL 7.5-12.5 ABSOLUTE NEUTROPHILS 2239 cells/uL 1500- 7800 ABSOLUTE LYMPHOCYTES 2224 cells/uL 850-3 900 ABSOLUTE MONOCYTES 408 cells/uL 200-950 ABSOLUTE EOSINOPHILS 189 cells/uL 15-500 ABSOLUTE BASOPHILS 41 cells/uL 0-200 NEUTROPHILS 43.9 % NRG LYMPHOCYTES 43.6 % NRG MONOCYTES 8.0 % NRG EOSINOPHILS 3.7 % NRG BASOPHILS 0.8 % NRG TSH - 08/16/17 14:59 TSH 0.77 mIU/L 0.40-4.50 Complete blood count (CBC) with automate d white blood cell (WBC) differential - 08/19/18 04:56 Blood leukocytes automated count (number/volume) 7.7 10*3/uL 4.3-11.0 Blood erythrocytes automated count (number/volume) 4.79 10*6/uL 4.35-5.85 Venous blood hemoglobin measurement (mass/volume) 14.0 g/dL 13.3-17.7 Blood hematocrit (volume fraction) 41 % 40-54 Automated erythrocyte mean corpuscular volume 85 [ foz_us] 80-99 Automated erythrocyte mean corpuscular h emoglobin (mass per erythrocyte) 29 pg 25-34 Automated erythrocyte mean corpuscular h emoglobin concentration measurement (mass/volume) 34 g/dL 32-36 Automated erythrocyte distribution width ratio 11. 9 % 10.0- 14.5 Automated blood platelet count (count/volume) 300 10*3/uL 130-400 Automated blood platelet mean volume measurement 9.2 [foz_us] 7.4-10.4 Automated blood neutrophils/100 leukocytes 58 % 42-75 Automated blood lymphocytes/100 leukocytes 31 % 12-44 Blood monocytes/100 leukocytes 8 % 0-12 Automated blood eosinophils/100 leukocytes 3 % 0-10 Automated blood basophils/100 leukocytes 0 % 0-10 Blood neutrophils automated count (number/volume) 4.4 10*3 1.8-7.8 Blood lymphocytes automated count (number/volume) 2.4 10*3 1.0-4.0 Blood monocytes automated count (number/volume) 0. 6 10*3 0.0-1.0 Automated eosinophil count 0.2 10*3/uL 0 .0-0.3 Automated blood basophil count (count/volume) 0.0 10*3/uL 0.0-0.1 Comprehensive metabolic panel - 08/19/18 04:56 Serum or plasma sodium measurement (moles/volume) 140 mmol/L 135-145 Serum or plasma potassium measurement (moles/volume) 3.6 mmol/L 3.6-5.0 Serum or plasma chloride measurement (moles/volume) 105 mmol/L 98-107 Carbon dioxide 26 mmol/L 21-32 Serum or plasma anion gap determination (moles/volume) 9 mmol/L 5-14 Serum or plasma urea nitrogen measurement (mass/volume ) 6 mg/dL 7-18 Serum or plasma creatinine measurement (mass/volume) 0.96 mg/dL 0.60-1.30 Serum or plasma urea nitrogen/creatinine mass ratio 6 NRG Serum or plasma creatinine measurement w ith calculation of estimated glomerular filtration rate > NRG Serum or plasma glucose measurement (mass/volume) 121 mg/dL 70-105 Serum or plasma calcium measurement (mass/volume) 9.8 mg/dL 8.5-10.1 Serum or plasma total bilirubin measurement (mass/volu me) 0.5 mg/dL 0.1-1.0 Serum or plasma alkaline phosphatase ángel surement (enzymatic activity/volume) 73 U/L 40-136 Serum or plasma aspartate aminotransfera se measurement (enzymatic activity/volume) 15 U/L 5-34 Serum or plasma alanine aminotransferase measurement (enzymatic activity/volume) 14 U/L 0-55 Serum or plasma protein measurement (mass/volume) 7.2 g/dL 6.4-8.2 Serum or plasma albumin measurement (mass/volume) 4.5 g/dL 3.2-4.5 CALCIUM CORRECTED 9.4 mg/dL 8.5-10.1 Serum or plasma amylase measurement (enz ymatic activity/volume) - 08/19/18 04:56 Serum or plasma amylase measurement (enzymatic activit y/volume) 60 U/L 25-125 Lipase - 08/19/18 04:56 Lipase 22 U/L 8-78 Serum or plasma acetaminophen measuremen t (mass/volume) - 08/19/18 04:56 Serum or plasma acetaminophen measurement (mass/volume ) < ug/mL 10-30 Serum or plasma ethanol measurement (mas s/volume) - 08/19/18 04:56 Serum or plasma ethanol measurement (mass/volume) < mg/dL <10 Complete urinalysis with reflex to cultu re - 08/19/18 05:00 Urine color determination YELLOW NRG Urine clarity determination CLEAR NR G Urine pH measurement by test strip 6 5-9 Specific gravity of urine by test strip 1.025 1.016-1.022 Urine protein assay by test strip, semi-quantitative 1+ NEGATIVE Urine glucose detection by automated test strip NE GATIVE NEGATIVE Erythrocytes detection in urine sediment by light micr oscopy 1+ NEGATIVE Urine ketones detection by automated test strip 1+ NEGATIVE Urine nitrite detection by test strip NEGATIVE NEGATIVE Urine total bilirubin detection by test strip NEGA TIVE NEGATIVE Urine urobilinogen measurement by automated test strip (mass/volume) 4 mg/dL NORMAL Urine leukocyte esterase detection by dipstick 1+ NEGATIVE Automated urine sediment erythrocyte cou nt by microscopy (number/high power field) [HPF] NRG Automated urine sediment leukocyte count by microscopy (number/high power field) [HPF] NRG Bacteria detection in urine sediment by light microsco py FEW NRG Squamous epithelial cells detection in u rine sediment by light microscopy 2-5 NRG Crystals detection in urine sediment by light microsco py NONE NRG Casts detection in urine sediment by light microscopy NONE NRG Mucus detection in urine sediment by light microscopy MODERATE NRG Complete urinalysis with reflex to culture YES NRG Urine drug screening test - 08/19/18 05: 00 Urine phencyclidine detection by screening method NEGATIVE NEGATIVE Urine benzodiazepines detection by screening method NEGATIVE NEGATIVE Urine cocaine detection NEGATIVE NEGATI VE Urine amphetamines detection by screening method N EGATIVE NEGATIVE Urine methamphetamine detection by screening method NEGATIVE NEGATIVE Urine cannabinoids detection by screening method P OSITIVE NEGATIVE Urine opiates detection by screening method NEGATI VE NEGATIVE Urine barbiturates detection NEGATIVE N EGATIVE Screening urine tricyclic antidepressants detection NEGATIVE NEGATIVE Urine methadone detection by screening method NEGA TIVE NEGATIVE Urine oxycodone detection NEGATIVE NEGA TIVE Urine propoxyphene detection NEGATIVE N EGATIVE Bacterial urine culture - 08/19/18 05:00 Bacterial urine culture 3 OR MORE NRG COLONY COUNT 20,000 CFU/ML NRG FTX;REPORTABLE (GRAM POSITIVE) SUGGESTING PROBABLE NRG FREE TEXT ENTRY 2 COLLECTION CONTAMINATION WITH SK IN ISAIAS NRG FREE TEXT ENTRY 3 NO SUSCEPTIBILITY PERFORMED NRG CMP - 11/01/18 14:35 GLUCOSE 81 mg/dL 65-99 UREA NITROGEN (BUN) 8 mg/dL 7-25 CREATININE 0.88 mg/dL 0.60-1.35 eGFR NON-AFR. NEPALESE 121 mL/min/1.73m2 > OR = 60 eGFR 140 mL/min/1.73m2 > OR = 60 BUN/CREATININE RATIO NOT APPLICABLE (calc) 6-22 SODIUM 139 mmol/L 135-146 POTASSIUM 4.4 mmol/L 3.5-5.3 CHLORIDE 104 mmol/L 98-110 CARBON DIOXIDE 29 mmol/L 20-32 CALCIUM 9.7 mg/dL 8.6-10.3 PROTEIN, TOTAL 7.0 g/dL 6.1-8.1 ALBUMIN 4.7 g/dL 3.6-5.1 GLOBULIN 2.3 g/dL (calc) 1.9-3.7 ALBUMIN/GLOBULIN RATIO 2.0 (calc) 1.0-2. 5 BILIRUBIN, TOTAL 1.0 mg/dL 0.2-1.2 ALKALINE PHOSPHATASE 70 U/L 40-115 AST 13 U/L 10-40 ALT 9 U/L 9-46 CBC - 11/01/18 14:35 WHITE BLOOD CELL COUNT 6.0 Thousand/uL 3 .8-10.8 RED BLOOD CELL COUNT 4.57 Million/uL 4.2 0-5.80 HEMOGLOBIN 13.5 g/dL 13.2-17.1 HEMATOCRIT 40.9 % 38.5-50.0 MCV 89.5 fL 80.0-100.0 MCH 29.5 pg 27.0-33.0 MCHC 33.0 g/dL 32.0-36.0 RDW 12.6 % 11.0-15.0 PLATELET COUNT 307 Thousand/uL 140-400 MPV 9.0 fL 7.5-12.5 ABSOLUTE NEUTROPHILS 3330 cells/uL 1500- 7800 ABSOLUTE LYMPHOCYTES 2112 cells/uL 850-3 900 ABSOLUTE MONOCYTES 330 cells/uL 200-950 ABSOLUTE EOSINOPHILS 198 cells/uL 15-500 ABSOLUTE BASOPHILS 30 cells/uL 0-200 NEUTROPHILS 55.5 % NRG LYMPHOCYTES 35.2 % NRG MONOCYTES 5.5 % NRG EOSINOPHILS 3.3 % NRG BASOPHILS 0.5 % NRG TSH - 11/01/18 14:35 TSH 0.93 mIU/L 0.40-4.50 MMR TITER - 01/04/19 13:27 RUBELLA ANTIBODY (IGG) 2.37 index NRG MEASLES ANTIBODY (IGG) <25.00 AU/mL NRG MUMPS VIRUS ANTIBODY (IGG) 81.00 AU/mL N RG Encounters ACCT No. Visit Date/Time Discharge Status Pt. Type Provider Facility Loc./Unit Complaint [id number] 09/22/2019 12:15:00 09/22/2019 23:59: 59 [facility] [id number] 01/04/2019 13:20:00 Document Registration [id number] 11/01/2018 13:40:00 Document Registration [id number] 08/16/2017 14:20:00 Document Registration [id number] 08/19/2018 04:30:00 019 06:20:00 DIS Outpatient DELROY WILLARD DO [facility] ER ACID REFLUX PAIN [id number] 07/28/2017 01:29:00 018 03:12:00 DIS Emergency DRAKE HINOJOSA, ISABELLA Green [facility] ER UPPER ABD PAIN [id number] 02/18/2017 23:50:00 017 11:25:00 DIS Inpatient AARON HINOJOSA, ILDA Portillo [facility] ICU ETOH INTOXICATION [id number] 01/29/2017 21:37:00 017 23:51:00 DIS Emergency DRAKE HINOJOSA, ISABELLA Green [facility] ER ETOH R SIDE PAIN [id number] 08/20/2016 23:19:00 017 00:30:00 DIS Emergency BIRDIE NAVAS DO [facility] ER ABD PAIN [id number] 08/15/2016 00:22:00 017 02:00:00 DIS Emergency DELROY WILLARD DO [facility] ER ETOH/VOMITING [id number] 03/09/2016 22:54:00 016 23:30:00 DIS Outpatient JAYCOB THAKKAR DO [facility] ER SOA
--- OUTSIDE RECORDS SUMMARY | 2019-11-01 22:20 | XMS REPORT ---
Author Author Daniella FRANCE Organization [facility] Address [address] [place] [address] Care Team Providers Care Manufacturing Project Manager Name Role Phone GUZMANVANESSA VIJAY Unavailable PROBLEMS Type Condition ICD9-CM Code GRE00-EJ Code Onset Dates Condition S tatus SNOMED Code Problem Panic disorder F41.0 Active 03051 1005 Problem Mild acid reflux K21.9 Active 235 863686 Problem Other chronic pain G89.29 Active 8 2372515 Problem Anxiety F41.9 Active 13312132 Problem Night terrors F51.4 Active 957820 03 ALLERGIES No Known Allergies ENCOUNTERS Encounter Location Date Diagnosis [facility] [address] [id number] [address] [place] [address] [id number] Jul, Dental examination Z01.20 an d Caries K02.9 [facility] [address] [facility] [id number] [address] [place] [phone] Jul, Dentalgia K08.89 [facility] [address] [id number] [address] [place] [id number] Mar, Caries K02.9 [facility] [address] [id number] [address] [place] [id number] Mar, [facility] [address] [facility] [id number] [address] [place] [phone] Feb, Encounter for immunization Z 23 [facility] [address] [id number] [address] [place] [address] [id number] Feb, Dental examination Z01.20 [facility] [address] [id number] [address] [place] [phone] 16 Feb, 2019 Tooth infection K04.7 [facility] [address] [facility] [id number] [address] [place] [phone] Jan, Encounter for immunization Z 23 [facility] [address] [id number] Dec, Encounter for immunization Z 23 [facility] [address] [place] [id number] [place] [phone] Dec, Measles, mumps, rubella (MMR ) vaccination status unknown Z78.9 [place] [address] [phone] Dec, Measles, mumps, rubella (MMR ) vaccination status unknown Z78.9 and Encounter for immunization Z23 [place] [address] [address] Oct, Acute pain of right knee M25 .561 ; Anxiety F41.9 and Other fatigue R53.83 [facility] [place] [address] [address] Jul, Mild acid reflux K21.9 [place] [address] [phone] Jan, Epigastric pain R10.13 ; Anx iety F41.9 and Acute midline low back pain without sciatica M54.5 [place] [address] [phone] Oct, Panic disorder F41.0 ; Acute pain of right shoulder M25.511 and Night terrors F51.4 [facility] [address] [place] [id number] [place] [phone] September, Acute pain of right shoulder M25.511 [place] [address] [address] Jul, Anxiety F41.9 [place] [address] [phone] Jul, Dizziness R42 and Tremor R25 .1 [place] [address] [place] [address] [place] [address] Feb, Low back pain M54.5 and Othe r chronic pain G89.29 IMMUNIZATIONS No Known Immunizations SOCIAL HISTORY Never Assessed REASON FOR VISIT stomach pain , puking this morning , low back pain x 2 days -- jamal wiggins PLAN OF CARE Activity Details Follow Up prn Reason: VITAL SIGNS Height 72 in 2018-08-16 Weight 148.0 lbs 2018-08-16 Temperature 97.5 degrees Fahrenheit 2018-08-16 Heart Rate 72 bpm 2018-08-16 Respiratory Rate 18 2018-08-16 BMI 20.07 kg/m2 2018-08-16 Blood pressure systolic 116 mmHg 2018-08-16 Blood pressure diastolic 68 mmHg 2018-08-16 MEDICATIONS Medication Instructions Dosage Frequency Start Date End Date Duration S tatus Citalopram Hydrobromide 20 mg Orally Once a day 1 tablet 24h Oct, 90 day(s Not-Taking Ranitidine HCl 150 MG Orally twice a day as needed 1 tablet Jan, 30 day(s) Not-Taking Prazosin HCl 2 MG Orally Once a day 1 hr before bed 1 capsule at be dtime Oct, 30 day(s) Not-Taking RESULTS No Results PROCEDURES No Known procedures INSTRUCTIONS MEDICATIONS ADMINISTERED No Known Medications MEDICAL (GENERAL) HISTORY Type Description Date Medical History anxiety Surgical History No know Surgical history Hospitalization History ETOH detox x2
--- OUTSIDE RECORDS SUMMARY | 2019-11-01 22:20 | XMS REPORT | Continuity of Care Document ---
Author Author [facility] Address Unknown Phone Unavailable Care Team Providers Care Regional Program Manager Name Role Phone [facility] Unavailable Unavailable Problems Combined list of all problems from all Department of Defense and [facility] s facilities. It does not include entries that were removed or entered in error. Problem Status Onset Date Problem Type Date of Resolution Comments Source visit for: services physical accession Active Condition DoD Medications No Data Provided for This Section Allergies, Adverse Reactions, Alerts Combined list of all allergies from all Department of Defense and Veterans [facility] facilities. It does not include entries that were removed or entered in error. Substance Category R eaction Severity Reaction type Status Date Reported Comments Source No Known Allergies Drug allergy Drug allergy active 03/28/2014 Tai Kemp [place], HERNANDEZ [place] Immunizations Combined list of: 1) all immunizations on record at all [facility] ies, and 2) all available immunizations on record at Department of Defense (Do D) facilities. Some immunizations on record at [facility] may not be included. Immunization Series Date Given Administered By Site Reaction Lot Number CVX Code Drug Customer Care Manager Status Comments Source measles, mumps and rubella virus vaccine 1 01/11/2014 [id number] Merck (MSD) completed measles, mumps and rubella virus vaccine DoD hepatitis B vaccine, pediatric or pediat gurdeep/adolescent dosage 1 01/11/2014 [id number] 08 Shop pirate (SKB) completed hepatitis B vaccine, pediatric or pediatric/adolescent dosage DoD varicella virus vaccine 1 01/11/2014 [id number] Merck (MSD) completed varicella virus vaccine DoD hepatitis A vaccine, adult dosage 1 01/11/2014 [id number] 52 Shop pirate (SKB) completed hepatitis A vaccine, adult dosage DoD Adenovirus, type 4 and type 7, live, oral 1 01/11/2014 [id number] 3 Expa (BRR) comple coco Adenovirus, type 4 and type 7, live, ora l DoD poliovirus vaccine, inactivated 1 01/09/2014 [id number] 10 Sanofi Pasteur (PMC) completed poliovirus vaccine, inactivated DoD meningococcal polysaccharide (groups A, C, Y and W-135) diphtheria toxoid conjugate vaccine (MCV4P) 1 01/09/2014 [id number] SmithKline (SKB) completed meningococcal polysaccharide (groups A, C, Y and W-135) diphtheria toxoid conjugate vaccine (MCV4P) DoD tetanus toxoid, reduced diphtheria toxoi d, and acellular pertussis vaccine, adsorbed 1 01/09/2014 [id number] 115 Sa nofi Pasteur (PMC) completed tetanus toxoid, reduced diphtheria toxoid, and acellular pertussis vaccine, adsorbed DoD Results No Data Provided for This Section Vital Signs No Data Provided for This Section Encounters Combined list of encounters at Department of Defense and/or Veterans Affairs (VA ) for the last 15 months. Not all VA inpatient encounters are included. The incl uded entries comply with the patient's data sharing authorizations. Location Location Details Encounter Type Encounter Number Reason For Visit Attending Provider ADM Date DC Date Status Disposition Source OUTPATIENT [id number] Notes Entered by: DANETTE ZAPATA 10 Jan 2014 0900 Hearing Test DANETTE BEYER 01/10/2014 Released w/o Limitations [place] OUTPATIENT [id number] Notes Entered by: ASAF CASTILLO 11 Jan 2014 0715 IMM BIBI JACKMAN 01/11/2014 Released [place] Limitations [place] OUTPATIENT [id number] CAREY BURROUGHS 01/11/2014 Released w/o Limitations [place]) OUTPATIENT [id number] Notes Entered by: YUMIKO CLIFFORD 27 Mar 2014 0919 IMM-HEP B(P)/MMR/JENNY KUN GOMEZ 03/27/2014 Released w /o Limitations [place] Procedures Combined list of general procedure/surgical history for the last 15 months on re cord at Department of Defense and Veterans Affairs (VA) facilities. Not all VA p rocedures are included. Procedure Procedure Type Code Date Perfomer Comments Source Vaccines Viral Varicella (Active) Vaccines Viral Varicella (Active) 62957 03/28/2014 KUN GOMEZ [facility] Vaccines Viral Measles, Mumps and Rubella, Live Vaccines Viral Measles, Mumps and Rubella, Live 17629 03/28/2014 KUN GOMEZ Immunization Administration Each Additional Vaccine Immunization Administration Each Additional Vaccine 27205 03/28/2014 KUN GOMEZ [facility] Hep B Vaccine (Active); Adolescent (2 Dose Schedule) Hep B Vaccine (Active); Adolescent (2 Dose Schedule) 26851 03/28/2014 KUN GOMEZ Immunization Administration One Vaccine Immunization Administration One Vaccine 82942 03/28/2014 KUN GOMEZ DoD Injection, penicillin g benzathine, 100,000 units 01/15/2014 BIBI JACKMAN Visit for an IM injection of 1.2 million/units per 2 mL of Bicillin L-A (Penicillin G Benxathine injectable suspension). Was given in the Left upper quadrant, left buttock. Patient was observed for 15 min with no adverse reactions DoD Vaccines Viral Polio, Inactivated (Salk) Vaccines Viral Polio, Inactivated (Salk) 90335 01/15/2014 BIBI JACKMAN Visit for an IM injection of 0.5mL of IPOL (Poliovirus Vaccine Inactivated). Was given in the Right Deltoid. Patient was observed for 15 min with no adverse reactions. [facility] Meningococcal Polysaccharide Diphtheria Toxoid Conjugate Vaccine 01/15/2014 BIBI JACKMAN Visit for an I M injection of 0.5mL of Meningococcal Vaccine (Menactra). Was given in the Left Deltoid. Patient was observed for 15 min with no adverse reactions. DoD Hepatitis A Vaccine Adult Dosage (Intramuscular Use) Hepatitis A Vaccine Adult Dosage (Intramuscular Use) 62627 01/15/2014 BIBI JACKMAN Visit for an IM injection of 1mL of Hepa titis A (Havrix). Was given in the Right Deltoid. Patient was observed for 15 min with no adverse reactions. DoD Physician Supervised Injection Intramuscular Antibioti c Physician Supervised Injection Intramuscular Antibiotic 22263 01/15/2014 BIBI JACKMAN [facility] Tdap Vaccine Tdap Vaccine 24325 01/15/2014 BIBI JACKAMN Visit for an IM injection of 0.5mL of Virgil ostrix (Tetanus and Diphtheria Toxoids and Acellular Pertussis). Was given in the Right Deltoid. Patient was observed for 15 min with no adverse reactions. DoD Immunization Admin Intranasal / Oral Eac h Additional Vaccine Immunization Admin Intranasal / Oral Eac h Additional Vaccine 18869 01/15/2014 BIBI JACKMAN [facility] Vaccines Adenovirus Type 4 Live, For Oral Use Vaccines Adenovirus Type 4 Live, For Oral Use 05798 01/15/2014 BIBI JACKMAN A single vaccine dose adminstered orally. [facility] Vaccines Adenovirus Type 7 Live, For Oral Use Vaccines Adenovirus Type 7 Live, For Oral Use 93136 01/15/2014 BIBI JACKMAN A single vaccine dose adminstered orally. [facility] [employer] Fitting Monofocals ( Not For Aphakia) [employer] Fitting Monofocals ( Not For Aphakia) 30940 01/11/2014 CAREY BURROUGHS 42/28 M40 50/24 5A 48/22 [facility] Ear mold/insert, not disposable, any type 01/10/2014 DANETTE BEYER [facility] Audiometry Group Testing Audio metry Group Testing 99158 01/10/2014 DANETTE BEYER [facility] -Supervised Group Educational Services -Supervised Group Educational Services 16953 01/10/2014 DANETTE BEYER [facility] Social History Combined list of available smoking, tobacco, and other social history on record at Department of Defense and/or Veterans Affairs facilities. The included entrie s comply with the patient's data sharing authorizations. Social History Type Response Date Comment Source This section is an empty social history section. DoD Assessment and Plan No Data Provided for This Section Plan of Care No Data Provided for This Section Family History No Data Provided for This Section Advance Directives No Data Provided for This Section Functional Status No Data Provided for This Section
[2019-11-01] MEDS ORDERED: AZITHROMYCIN 250 MG TAB (ZITHROMAX) PO ONE (22:30)
[2019-11-01] MEDS ORDERED: cefTRIAXone FOR IV USE 1,000 MG in WATER (STERILE) FOR INJECTION 10 ML IV ONE (22:30)
[2019-11-01] MEDS ORDERED: AZIT250T12 PO (22:35)
[2019-11-01] MEDS ORDERED: ONDA4TAB11 PO (22:35)
--- NOTE | 2019-11-01 22:35 | ED General ---
General Chief Complaint: Cough/Cold/Flu Symptoms Stated Complaint: L SIDE PAIN / SOA / COUGH / FEVER Nursing Triage Note: soa,cough, near syncope, left sided abdominal/chest pain, subjective fever/chills. vomitted x3 today recent travel to [place] Nursing Sepsis Screen: Possible Severe Sepsis Risk Source of Information: Patient Exam Limitations: No Limitations History of Present Illness Date Seen by Provider: Nov 01, 2019 Time Seen by Provider: 21:30 Initial Comments This 23-year-old man presents to the emergency room with flulike symptoms incl uding cough, shortness of breath, lightheadedness, pleuritic left lower chest pain, fever, and vomiting. He has been ill for about 4 days. He returned from a trip to [place] just before symptoms started. Allergies and Home Medications Allergies Coded Allergies: No Known Drug Allergies (Unverified , 03/09/16) Home Medications Azithromycin 250 Mg Tablet, 250 MG PO DAILY Prescribed by: JIM CA on 11/01/192234 Ondansetron 4 Mg Tab.rapdis, 4 MG PO Q4H PRN for NAUSEA/VOMITING Prescribed by: JIM CA on 11/01/192234 Patient Home Medication List Home Medication List Reviewed: Yes Review of Systems Review of Systems Constitutional: see HPI EENTM: see HPI Respiratory: see HPI Cardiovascular: no symptoms reported Gastrointestinal: see HPI Genitourinary: no symptoms reported Musculoskeletal: no symptoms reported Skin: no symptoms reported Psychiatric/Neurological: See HPI Hematologic/Lymphatic: No Symptoms Reported Immunological/Allergic: no symptoms reported Past Zlmgigo-Dvbckn-Fxuthn Hx Past Med/Social Hx: Reviewed Nursing Past Med/Soc Hx Patient Social History Alcohol Use: Rarely Uses Number of Drinks Today: GG Alcohol Beverage of Choice: Beer, Whiskey, Vodka Recreational Drug Use: Yes Drug of Choice: cannibus Smoking Status: Current Everyday Smoker Type Used: Cigarettes 2nd Hand Smoke Exposure: No Recent Foreign Travel: No Contact w/Someone Who Travel: No Recent Infectious Disease Expo: No Recent Hopitalizations: No Physical Abuse: No Sexual Abuse: No Mistreated: No Fear: No Immunizations Up To Date Tetanus Booster (TDap): Unknown PED Vaccines UTD: No Seasonal Allergies Seasonal Allergies: No Past Medical History Surgeries: No Respiratory: No Cardiac: No Neurological: No Reproductive Disorders: No Genitourinary: No Gastrointestinal: Yes Gastroesophageal Reflux Musculoskeletal: Yes Chronic Back Pain Endocrine: No HEENT: No Cancer: No Psychosocial: No Integumentary: No Blood Disorders: No Family Medical History No Pertinent Family Hx Physical Exam-Suspected Sepsis Physical Exam Vital Signs Vital Signs - First Documented 11/01/19 21:29 Temp 38.1 Pulse 110 Resp 22 B/P (MAP) 122/81 (95) Pulse Ox 97 O2 Delivery Room Air Capillary Refill : Less Than 3 Seconds Blood Pressure Mean: 95 Height, Weight, BMI Height: 6'0" Weight: 150lbs. 1.0oz. 68.495048uc; 20.00 BMI Method:Stated General Appearance: WD/WN, Mild Distress HEENT: PERRL/EOMI, TMs Normal, Normal ENT Inspection, Pharynx Normal Neck: Normal Inspection Respiratory: Chest Non Tender, Lungs Clear, Normal Breath Sounds, No Accessory Muscle Use, No Respiratory Distress Cardiovascular: No Edema, No Murmur, Normal Peripheral Pulses, Tachycardia Gastrointestinal: Normal Bowel Sounds, Non Tender, Soft Extremity: Normal Inspection, No Pedal Edema Neurologic/Psychiatric: Alert, Oriented x3, No Motor/Sensory Deficits, Normal Mood/Affect, presentation team member II-XII Norm as Tested Skin: normal color, warm/dry Focused Exam Lactate Level 11/01/19 21:40: Lactic Acid Level 1.79 Lactic Acid Level Progress/Results/Core Measures Suspected Sepsis Recent Fever Within 48 Hours: Yes Infection Criteria Present: Suspected New Infection New/Unexplained Altered Menta: No Sepsis Screen: Possible Severe Sepsis Risk SIRS Temperature: Pulse: 110 Respiratory Rate: 22 Laboratory Tests 11/01/19 21:40: White Blood Count 16.6H Blood Pressure 122 /81 Mean: 95 11/01/19 21:40: Lactic Acid Level 1.79 Laboratory Tests 11/01/19 21:40: Creatinine 0.98, INR Comment 1.0, Platelet Count 249, Total Bilirubin 0.8 Results/Orders Lab Results Laboratory Tests Test 11/01/19 21:40 Range/Units White Blood Count 16.6 H 4.3-11.0 10^3/uL Red Blood Count 4.46 4.35-5.85 10^6/uL Hemoglobin 13.2 L 13.3-17.7 G/DL Hematocrit 39 L 40-54 % Mean Corpuscular Volume 87 80-99 FL Mean Corpuscular Hemoglobin 30 25-34 PG Mean Corpuscular Hemoglobin Concent 34 32-36 G/DL Red Cell Distribution Width 12.2 10.0-14.5 % Platelet Count 249 130-400 10^3/uL Mean Platelet Volume 9.3 7.4-10.4 FL Neutrophils (%) (Auto) 93 H 42-75 % Lymphocytes (%) (Auto) 4 L 12-44 % Monocytes (%) (Auto) 2 0-12 % Eosinophils (%) (Auto) 0 0-10 % Basophils (%) (Auto) 0 0-10 % Neutrophils # (Auto) 15.5 H 1.8-7.8 X 10^3 Lymphocytes # (Auto) 0.7 L 1.0-4.0 X 10^3 Monocytes # (Auto) 0.3 0.0-1.0 X 10^3 Eosinophils # (Auto) 0.0 0.0-0.3 10^3/uL Basophils # (Auto) 0.0 0.0-0.1 10^3/uL Neutrophils % (Manual) 92 % Lymphocytes % (Manual) 5 % Monocytes % (Manual) 2 % Blood Morphology Comment NORMAL Prothrombin Time 13.6 12.2-14.7 SEC INR Comment 1.0 0.8-1.4 Activated Partial Thromboplast Time 27 24-35 SEC Sodium Level 139 135-145 MMOL/L Potassium Level 3.5 L 3.6-5.0 MMOL/L Chloride Level 104 98-107 MMOL/L Carbon Dioxide Level 26 21-32 MMOL/L Anion Gap 9 5-14 MMOL/L Blood Urea Nitrogen 9 7-18 MG/DL Creatinine 0.98 0.60-1.30 MG/DL Estimat Glomerular Filtration Rate > 60 BUN/Creatinine Ratio 9 Glucose Level 152 H 70-105 MG/DL Lactic Acid Level 1.79 0.50-2.00 MMOL/L Calcium Level 9.1 8.5-10.1 MG/DL Corrected Calcium 8.8 8.5-10.1 MG/DL Total Bilirubin 0.8 0.1-1.0 MG/DL Aspartate Amino Transf (AST/SGOT) 16 5-34 U/L Alanine Aminotransferase (ALT/SGPT) 18 0-55 U/L Alkaline Phosphatase 71 40-136 U/L Lactate Dehydrogenase 173 125-220 U/L C-Reactive Protein High Sensitivity 1.41 H 0.00-0.50 MG/DL Total Protein 7.3 6.4-8.2 GM/DL Albumin 4.4 3.2-4.5 GM/DL Procalcitonin 0.08 <0.10 NG/ML Group A Streptococcus Screen NEGATIVE NEGATIVE Micro Results Microbiology 11/01/19 Influenza Types A,B Antigen (ELIUD) - Final, Complete My Orders Orders - JIM ROBLERO MD Procalcitonin (Pct) (11/01/19 21:40) Hs C Reactive Protein (11/01/19 21:40) LDH (11/01/19 21:40) Influenza A And B Antigens (11/01/19 21:40) Rapid Strep A Screen (11/01/19 21:40) Coronavirus Sars-Cov-2 So 2018 (11/01/19 21:40) Cbc With Automated Diff (11/01/19 21:40) Comprehensive Metabolic Panel (11/01/19 21:40) Blood Culture (11/01/19 21:40) Sputum Culture (11/01/19 21:40) Urinalysis (11/01/19 21:40) Urine Culture (11/01/19 21:40) Protime With Inr (11/01/19 21:40) Partial Thromboplastin Time (11/01/19 21:40) Chest 1 View, Ap/Pa Only (11/01/19 21:40) Ed Iv/Invasive Line Start (11/01/19 21:40) Ed Iv/Invasive Line Start (11/01/19 21:40) Vital Signs Adult Sepsis Patie Q15M (11/01/19 21:40) O2 (11/01/19 21:40) Remove Rings In Anticipation O (11/01/19 21:40) Lactic Acid Analyzer (11/01/19 21:40) Ns Iv 1000 Ml (Sodium Chloride 0.9%) (11/01/19 21:40) Ketorolac Injection (Toradol Injection) (11/01/19 21:45) Ondansetron Injection (Zofran Injectio (11/01/19 21:45) Manual Differential (11/01/19 21:40) Ceftriaxone For Iv Use (Rocephin For I (11/01/19 22:30) Azithromycin Tablet (Zithromax Tablet) (11/01/19 22:30) Ns Iv 1000 Ml (Sodium Chloride 0.9%) (11/01/19 23:50) Medications Given in ED Current Medications Medications Dose Ordered Sig/[place] Route Start Time Stop Time Status Last Admin Dose Admin Azithromycin 500 mg ONCE ONCE PO 11/01/19 22:30 11/01/19 22:32 DC 11/01/19 22:46 500 MG Ceftriaxone Sodium 1000 mg/ Sterile Water 10 ml @ 200 mls/hr ONCE ONCE IV 11/01/19 22:30 11/01/19 22:32 DC 11/01/19 22:46 200 MLS/HR Ketorolac Tromethamine 15 mg ONCE ONCE IVP 11/01/19 21:45 11/01/19 21:46 DC 11/01/19 21:52 15 MG Ondansetron HCl 8 mg ONCE ONCE IVP 11/01/19 21:45 11/01/19 21:46 DC 11/01/19 21:51 8 MG Vital Signs/I&O 11/01/19 11/01/19 11/01/19 11/01/19 21:29 21:29 21:52 23:51 Temp 38.1 38.1 37.5 Pulse 110 99 Resp 22 18 B/P (MAP) 122/81 (95) 99/62 Pulse Ox 97 97 O2 Delivery Room Air Room Air Room Air 11/02/19 11/02/19 11/02/19 11/02/19 00:16 00:28 00:48 00:50 Temp 38.0 38.0 Pulse 95 100 100 Resp 20 20 B/P (MAP) 90/68 90/68 (75) Pulse Ox 98 98 O2 Delivery Room Air Room Air Room Air 11/02/19 00:00 Intake Total 1010 ml Balance 1010 ml Capillary Refill : Less Than 3 Seconds Blood Pressure Mean: 95 Progress Note : Progress Note Patient was treated with a liter of IV fluid, Toradol, and Zofran. These therapies resulted in subjective improvement. However, his blood pressures were still quite soft. I did not feel comfortable sending him home in this condition. Blood cultures were obtained and he was treated with Rocephin 1 g by IV route. Azithromycin had been given orally because we anticipated discharge home before the blood pressure trends were noted to be soft. Case was discussed with Dr. PAZ who agrees to admission. COVID 19 PCR screening was obtained. Diagnostic Imaging Diagonstic Imaging: Xray Plain Films/CT/US/NM/MRI: chest Comments Chest x-ray viewed by me. Report not yet available. Left lower lobe infiltrate identified. Departure Communication (Admissions) Time/Spoke to Admitting Phy: 23:04 Dr. Paz Impression Primary Impression: Sepsis Qualified Codes: A41.9 - Sepsis, unspecified organism Additional Impressions: Left lower lobe pneumonia Qualified Codes: J18.1 - Lobar pneumonia, unspecified organism Pleuritic chest pain Nausea & vomiting Qualified Codes: R11.2 - Nausea with vomiting, unspecified Disposition: HOME, SELF-CARE Condition: Improved Admissions Decision to Admit Reason: Admit from ER (General) Decision to Admit/Date: Nov 01, 2019 Time/Decision to Admit Time: 23:00 Departure-Patient Inst. Decision time for Depature: 22:32 Referrals: [facility] (PCP/Family) Primary Care Physician Patient Instructions: Coronavirus Disease 2019 (COVID-19), Pneumonia, Adult (DC) Add. Discharge Instructions: All discharge instructions reviewed with patient and/or family. Voiced understanding. Scripts Azithromycin (Azithromycin) 250 Mg Tablet 250 MG PO DAILY, #4 TAB 0 Refills Prov: JIM ROBLERO MD 11/01/19 Ondansetron (Ondansetron Odt) 4 Mg Tab.rapdis 4 MG PO Q4H PRN for NAUSEA/VOMITING, #10 TAB Prov: JIM ROBLERO MD 11/01/19 JIM ROBLERO MD Nov 01, 2019 22:35
[2019-11-01 22:47] LABS: LYMPHOCYTES % (MANUAL) 5 %; MONOCYTES % (MANUAL) 2 %; NEUTROPHILS % (MANUAL) 92 %; RBC MORPH NORMAL
[2019-11-02] VITALS (7 sets, daily range): BP systolic 90–110; BP diastolic 51–68
[2019-11-02] MEDS ORDERED: ONDANSETRON 4 MG/2 ML (SDV) Z0FRAN IV PRN (00:15)
[2019-11-02] MEDS: ACETAMINOPHEN 500 MG TAB (TYLENOL) PO PRN ×2 (00:23→11:40)
[2019-11-02] MEDS: NS IV 1000 ML 1,000 ML IV SCH ×4 (00:24→19:11)
[2019-11-02 05:29] LABS: BASOPHILS % (AUTO) 0 % (0-10); EOSINOPHILS % (AUTO) 0 % (0-10); HEMATOCRIT 35 % (40-54); HEMOGLOBIN 12.2 G/DL (13.3-17.7); LYMPHOCYTES # (AUTO) 1.4 X 10^3 (1.0-4.0); LYMPHOCYTES % (AUTO) 6 % (12-44); MEAN CORPUSCULAR HEMOGLOBIN 30 PG (25-34); MEAN CORPUSCULAR HGB CONC 35 G/DL (32-36); MEAN CORPUSCULAR VOLUME 87 FL (80-99); MEAN PLATELET VOLUME 8.9 FL (7.4-10.4); MONOCYTES # (AUTO) 1.4 X 10^3 (0.0-1.0); MONOCYTES % (AUTO) 6 % (0-12); NEUTROPHILS # (AUTO) 20.1 X 10^3 (1.8-7.8); NEUTROPHILS % (AUTO) 88 % (42-75); PLATELET COUNT 220 10^3/uL (130-400); RED CELL DISTRIBUTION WIDTH 12.1 % (10.0-14.5); WHITE BLOOD COUNT 22.9 10^3/uL (4.3-11.0)
--- NOTE | 2019-11-02 05:45 | Diagnostic Imaging Report ---
Portable erect AP chest at 1014 hours. INDICATION: Fever, cough. FINDINGS: The heart size is within normal limits and stable when compared to 07/28/2017. In the interval since the prior study, however an alveolar/interstitial infiltrate has developed in the left lung base. This does suggest pneumonia/atelectasis. The lungs are otherwise clear. There is no significant pleural effusion identified. The mediastinum is not widened. The osseous structures are intact. IMPRESSION: In the interval since the prior study, left lower lobe pneumonia/atelectasis has developed. A follow-up exam should be considered for further study. Dictated by: Dictated on workstation # [id number]
[2019-11-02 05:48] LABS: ALANINE AMINOTRANSFERASE 14 U/L (0-55); ALBUMIN 3.7 GM/DL (3.2-4.5); ALKALINE PHOSPHATASE 56 U/L (40-136); BILIRUBIN,TOTAL 1.9 MG/DL (0.1-1.0); BUN/CREATININE RATIO 11; CALCIUM 8.3 MG/DL (8.5-10.1); CARBON DIOXIDE 21 MMOL/L (21-32); CHLORIDE 109 MMOL/L (98-107); CREATININE SERUM 0.83 MG/DL (0.60-1.30); GFR ESTIMATED > 60; GLUCOSE 100 MG/DL (70-105); SODIUM 139 MMOL/L (135-145)
[2019-11-02] MEDS: AZITHROMYCIN 250 MG TAB (ZITHROMAX) PO SCH (10:22)
[2019-11-02] MEDS ORDERED: IBUP-2473 PO (11:22)
[2019-11-02] MEDS ORDERED: ACET-2267 PO (11:22)
--- NOTE | 2019-11-02 11:22 | NUR ---
SPOKE WITH THE PT(I CALLED HIS ROOM PHONE) TO COMPLETE THE MED REC THE PT DENIES TAKING ANY PRESCRIPTION MEDICATIONS OTC MEDS: TYLENOL & IBUPROFEN PRN
--- NOTE | 2019-11-02 13:35 | History & Physical-Hospitalist ---
History of Present Illness HPI/Chief Complaint This is a 23-year-old white male who complains of having a cough and left-sided pleuritic chest pain for the last 3-4 days. He also had been vomiting the day of presentation. Chest x-ray shows a left lower lobe pneumonia. White count was 16,000 and today is 22,000. He was placed on Zithromax and Rocephin this is day number 2 Source: patient Exam Limitations: no limitations Date Seen 11/02/19 Time Seen by a Provider: 13:30 Attending Physician Cyndie Simmons MD PCP [place] [place] Referring Physician Date of Admission Nov 01, 2019 at 23:08 Home Medications & Allergies Home Medications Reviewed patient Home Medication Reconciliation performed by pharmacy medication reconciliations electroplating technician and/or nursing. Patients Allergies have been reviewed. Allergies Allergies Coded Allergies No Known Drug Allergies (Epwqjpgoiz98/11/16) Past Cydhnnb-Wweizy-Mbobtv Hx Past Med/Social Hx: Reviewed Nursing Past Med/Soc Hx Patient Social History Marrital Status: single Employed/Student: employed Alcohol Use: Rarely Uses Number of Drinks Today: GG Alcohol Beverage of Choice: Beer, Whiskey, Vodka Recreational Drug Use: Yes Drug of Choice: cannibus Smoking Status: Current Everyday Smoker Type Used: Cigarettes 2nd Hand Smoke Exposure: No Recent Foreign Travel: No Contact w/other who traveled: No Recent Hopitalizations: No Recent Infectious Disease Expo: No Immunizations Up To Date Tetanus Booster (TDap): Unknown Pediatric: No Seasonal Allergies Seasonal Allergies: No Past Medical History Reproductive: No Gastrointestinal: Gastroesophageal Reflux Musculoskeletal: Chronic Back Pain Psychosocial: Violent Behavior History of Blood Disorders: No Family History No Pertinent Family Hx Review of Systems Constitutional: see HPI EENTM: no symptoms reported Respiratory: cough Cardiovascular: no symptoms reported Gastrointestinal: vomiting Genitourinary: no symptoms reported Musculoskeletal: back pain Skin: no symptoms reported Psychiatric/Neurological: Emotional Problems Physical Exam Physical Exam Vital Signs Vital Signs - First Documented 11/01/19 11/02/19 21:29 08:59 Temp 38.1 Pulse 110 Resp 22 B/P (MAP) 122/81 (95) Pulse Ox 97 O2 Delivery Room Air O2 Flow Rate 97.00 Capillary Refill : NONE Height, Weight, BMI Height: 6'0" Weight: 150lbs. 1.0oz. 68.859616dz; 20.36 BMI Method:Stated General Appearance: Mild Distress HEENT: Other (Poor dentition) Neck: Full Range of Motion, Non Tender, Supple Respiratory: Crackles (Left lower lobe) Cardiovascular: Regular Rate, Rhythm, No Edema, No Gallop, No JVD, No Murmur, Normal Peripheral Pulses Gastrointestinal: Normal Bowel Sounds, No Organomegaly, Soft Back: Normal Inspection, No CVA Tenderness, No Vertebral Tenderness Extremity: Normal Inspection, Non Tender, No Calf Tenderness Neurologic/Psychiatric: Alert, Oriented x3, Other Skin: Normal Color, Warm/Dry Results Results/Procedures Labs Laboratory Tests 11/01/19 21:40 11/02/19 05:15 Patient resulted labs reviewed. Assessment/Plan Admission Diagnosis Left lower lobe pneumonia Will continue Zithromax and Rocephin Admission Status: Observation Clinical Quality Measures DVT/VTE Risk/Contraindication: Risk Factor Score Per Nursin RFS Level Per Nursing on Admit: 2=Moderate Copy Copies To 1: [facility]/CYNDIE JOHNSON MD Nov 02, 2019 13:35
--- NOTE | 2019-11-02 14:00 | NUR ---
PTS COVID [address] PAZ NOTIFIED AND GAVE ORDER TO TRANSFER PT TO NON-PUI ROOM ON MED/SURG. PT NOTIFIED WELL AND MOVED TO ROOM 423. PT NOTIFIED BY THIS RN OF THE VISITOR POLICY AT THIS TIME.
[2019-11-02] MEDS: IBUPROFEN 600 MG (MOTRIN) TAB PO PRN (18:08)
[2019-11-02] MEDS: cefTRIAXone 1,000 MG/SWFI 10 ML IV PUSH IV SCH ×2 (20:11)
[2019-11-03] VITALS: BP 107/65
[2019-11-03] MEDS: NS IV 1000 ML 1,000 ML IV SCH ×2 (02:09→08:13)
[2019-11-03 04:34] VITALS: BP 114/74
[2019-11-03 06:50] LABS: BASOPHILS % (AUTO) 0 % (0-10); EOSINOPHILS # (AUTO) 0.3 10^3/uL (0.0-0.3); EOSINOPHILS % (AUTO) 2 % (0-10); HEMATOCRIT 35 % (40-54); HEMOGLOBIN 11.7 G/DL (13.3-17.7); LYMPHOCYTES # (AUTO) 2.3 X 10^3 (1.0-4.0); LYMPHOCYTES % (AUTO) 16 % (12-44); MEAN CORPUSCULAR HEMOGLOBIN 30 PG (25-34); MEAN CORPUSCULAR HGB CONC 34 G/DL (32-36); MEAN CORPUSCULAR VOLUME 88 FL (80-99); MEAN PLATELET VOLUME 9.5 FL (7.4-10.4); MONOCYTES # (AUTO) 0.8 X 10^3 (0.0-1.0); MONOCYTES % (AUTO) 6 % (0-12); NEUTROPHILS # (AUTO) 11.1 X 10^3 (1.8-7.8); NEUTROPHILS % (AUTO) 77 % (42-75); PLATELET COUNT 191 10^3/uL (130-400); RED CELL DISTRIBUTION WIDTH 12.4 % (10.0-14.5); WHITE BLOOD COUNT 14.4 10^3/uL (4.3-11.0)
[2019-11-03 07:00] LABS: ALBUMIN 3.4 GM/DL (3.2-4.5)
[2019-11-03 07:01] LABS: CHLORIDE 109 MMOL/L (98-107); POTASSIUM 4.1 MMOL/L (3.6-5.0); SODIUM 140 MMOL/L (135-145)
[2019-11-03 07:02] LABS: CALCIUM 8.5 MG/DL (8.5-10.1)
[2019-11-03 07:03] LABS: GLUCOSE 104 MG/DL (70-105); TOTAL PROTEIN 5.9 GM/DL (6.4-8.2)
[2019-11-03 07:04] LABS: CARBON DIOXIDE 25 MMOL/L (21-32)
[2019-11-03 07:05] LABS: BILIRUBIN,TOTAL 0.6 MG/DL (0.1-1.0)
[2019-11-03 07:06] LABS: ALKALINE PHOSPHATASE 57 U/L (40-136)
[2019-11-03 07:07] LABS: CREATININE SERUM 0.84 MG/DL (0.60-1.30); GFR ESTIMATED > 60
[2019-11-03 07:08] LABS: BUN/CREATININE RATIO 12
[2019-11-03 07:09] LABS: ALANINE AMINOTRANSFERASE 9 U/L (0-55)
[2019-11-03 08:00] VITALS: BP 102/61
[2019-11-03] MEDS: AZITHROMYCIN 250 MG TAB (ZITHROMAX) PO SCH (08:12)
[2019-11-03 12:00] VITALS: BP 114/74
--- NOTE | 2019-11-03 12:29 | Progress Note ---
Subjective HPI/CC On Admission Date Seen by Provider: Nov 03, 2019 Time Seen by Provider: 12:30 This is a 23-year-old white male who complains of having a cough and left-sided pleuritic chest pain for the last 3-4 days. He also had been vomiting the day of presentation. Chest x-ray shows a left lower lobe pneumonia. White count w as 16,000 and today is 22,000. He was placed on Zithromax and Rocephin this is day number 2 Subjective/Events-last exam patient had positive blood cultures for strep pneumonia. He is day number 3 Zithromax and Rocephin at 9 o'clock tonight. I wrote a note for the patient to not return to work until the ninth. I encouraged him to stay for at least 5 days of IV antibiotics because of the positive blood cultures. He is in agreement but concerned about getting back to work. He continues to cough with a productive cough Review of Systems Pulmonary: Cough, Pleuritic Chest Pain Objective Exam Vital Signs Vital Signs Date Time Temp Pulse Resp B/P (MAP) Pulse Ox O2 Delivery O2 Flow Rate FiO2 11/01/19 21:29 Room Air 11/01/19 21:29 38.1 110 22 122/81 (95) 97 11/02/19 08:59 97.00 Capillary Refill : NONE General Appearance: No Apparent Distress, Thin HEENT: Normal ENT Inspection Neck: Supple Respiratory: Crackles, Rales Cardiovascular: Regular Rate, Rhythm, No Gallop, No Murmur Gastrointestinal: Non Tender, Soft Results/Procedures Lab Laboratory Tests 11/03/19 06:28 Assessment/Plan Assessment and Plan Assess & Plan/Chief Complaint Streptococcus sepsis Presumed streptococcal pneumonia Plan to complete 5 days of IV antibiotic VIJAYA PAZ MD Nov 03, 2019 12:29
[2019-11-03] MEDS: NICOTINE 21 MG (NICODERM) PATCH TD SCH (13:30)
[2019-11-03] MEDS: IBUPROFEN 600 MG (MOTRIN) TAB PO PRN (13:55)
[2019-11-03 16:23] VITALS: BP 100/64
[2019-11-03 20:20] VITALS: BP 113/72
[2019-11-03] MEDS: cefTRIAXone 1,000 MG/SWFI 10 ML IV PUSH IV SCH ×2 (20:41)
[2019-11-04 00:24] VITALS: BP 112/78
[2019-11-04 04:47] VITALS: BP 116/81
[2019-11-04] MEDS: IBUPROFEN 600 MG (MOTRIN) TAB PO PRN (06:46)
[2019-11-04 08:00] VITALS: BP 124/81
[2019-11-04] MEDS: AZITHROMYCIN 250 MG TAB (ZITHROMAX) PO SCH (08:10)
[2019-11-04] MEDS: NICOTINE PATCH REMOVAL TP SCH (08:11)
[2019-11-04 12:00] VITALS: BP 111/73
--- NOTE | 2019-11-04 12:55 | Progress Note - Hospitalist ---
Subjective HPI/CC On Admission Date Seen by Provider: Nov 04, 2019 Time Seen by Provider: 12:00 This is a 23-year-old white male who complains of having a cough and left-sided pleuritic chest pain for the last 3-4 days. He also had been vomiting the day of presentation. Chest x-ray shows a left lower lobe pneumonia. White count was 16,000 and today is 22,000. He was placed on Zithromax and Rocephin this is day number 2 Subjective/Events-last exam Patient still with a productive cough but looks much stronger. Nursing staff notes that he still wears out pretty easily and is sleeping a lot Review of Systems Pulmonary: Cough, Pleuritic Chest Pain Focused Exam Lactate Level 11/01/19 21:40: Lactic Acid Level 1.79 Objective Exam Vital Signs Vital Signs Date Time Temp Pulse Resp B/P (MAP) Pulse Ox O2 Delivery O2 Flow Rate FiO2 11/04/19 12:00 36.6 72 18 111/73 (86) 98 Room Air 11/02/19 08:59 97.00 Capillary Refill : Less Than 3 Seconds General Appearance: WD/WN HEENT: Normal ENT Inspection Neck: Full Range of Motion, Normal Inspection, Non Tender, Supple Respiratory: No Accessory Muscle Use, No Respiratory Distress, Crackles, Rales Cardiovascular: Regular Rate, Rhythm, No Gallop, No JVD, No Murmur, Normal Peripheral Pulses Gastrointestinal: Soft Extremity: No Pedal Edema Results/Procedures Lab Patient resulted labs reviewed. Assessment/Plan Assessment and Plan Assess & Plan/Chief Complaint Streptococcus pneumonia, septicemia Presumed streptococcal pneumonia . We'll recheck a chest x-ray today Plan to complete 5 days of IV antibiotic . Currently on day 4 Clinical Quality Measures DVT/VTE Risk/Contraindication: Risk Factor Score Per Nursin RFS Level Per Nursing on Admit: 2=Moderate VIJAYA PAZ MD Nov 04, 2019 12:55
[2019-11-04] MEDS ORDERED: LORazepam 0.5 MG (ATIVAN) TABLET PO PRN (13:00)
[2019-11-04] MEDS: NICOTINE 21 MG (NICODERM) PATCH TD SCH (13:25)
--- NOTE | 2019-11-04 15:13 | Diagnostic Imaging Report ---
Clinical indication: Follow-up pneumonia, sepsis. Exam: Chest x-ray PA and lateral views. Comparisons: Chest x-ray dated 11/01/2019. Findings: Lungs/pleura: There is interval new resolution of the previously seen left lung base infiltrate with minimal amount remaining. The remainder of the lungs is clear. There is no pneumothorax. There is no pleural effusion. Mediastinum: Unremarkable. Pulmonary vasculature: Unremarkable. Heart: Unremarkable. Bones/extrathoracic soft tissue: Unremarkable. Impression: There is interval near resolution of previously seen left lung base infiltrate with minimal infiltrate remaining. Dictated by: Dictated on workstation # [id number]
[2019-11-04 16:17] VITALS: BP 99/67
[2019-11-04 19:51] VITALS: BP 118/73
[2019-11-04] MEDS: cefTRIAXone 1,000 MG/SWFI 10 ML IV PUSH IV SCH ×2 (20:47)
[2019-11-05] VITALS: BP 98/67
[2019-11-05] MEDS: IBUPROFEN 600 MG (MOTRIN) TAB PO PRN (00:32)
[2019-11-05 04:00] VITALS: BP 108/71
[2019-11-05] MEDS: ACETAMINOPHEN 500 MG TAB (TYLENOL) PO PRN (04:38)
[2019-11-05 05:07] LABS: BASOPHILS % (AUTO) 0 % (0-10); EOSINOPHILS # (AUTO) 0.2 10^3/uL (0.0-0.3); EOSINOPHILS % (AUTO) 2 % (0-10); HEMATOCRIT 38 % (40-54); HEMOGLOBIN 12.8 G/DL (13.3-17.7); LYMPHOCYTES # (AUTO) 2.4 X 10^3 (1.0-4.0); LYMPHOCYTES % (AUTO) 23 % (12-44); MEAN CORPUSCULAR HEMOGLOBIN 29 PG (25-34); MEAN CORPUSCULAR HGB CONC 34 G/DL (32-36); MEAN CORPUSCULAR VOLUME 86 FL (80-99); MEAN PLATELET VOLUME 9.2 FL (7.4-10.4); MONOCYTES # (AUTO) 0.7 X 10^3 (0.0-1.0); MONOCYTES % (AUTO) 7 % (0-12); NEUTROPHILS # (AUTO) 6.7 X 10^3 (1.8-7.8); NEUTROPHILS % (AUTO) 67 % (42-75); PLATELET COUNT 320 10^3/uL (130-400); RED CELL DISTRIBUTION WIDTH 12.2 % (10.0-14.5); WHITE BLOOD COUNT 10.1 10^3/uL (4.3-11.0)
[2019-11-05 05:17] LABS: ALBUMIN 4.1 GM/DL (3.2-4.5); CHLORIDE 105 MMOL/L (98-107); POTASSIUM 3.8 MMOL/L (3.6-5.0); SODIUM 140 MMOL/L (135-145)
[2019-11-05 05:18] LABS: CALCIUM 9.7 MG/DL (8.5-10.1)
[2019-11-05 05:19] LABS: GLUCOSE 93 MG/DL (70-105); TOTAL PROTEIN 7.3 GM/DL (6.4-8.2)
[2019-11-05 05:21] LABS: BILIRUBIN,TOTAL 0.5 MG/DL (0.1-1.0); CARBON DIOXIDE 24 MMOL/L (21-32)
[2019-11-05 05:23] LABS: ALKALINE PHOSPHATASE 69 U/L (40-136); CREATININE SERUM 0.92 MG/DL (0.60-1.30); GFR ESTIMATED > 60
[2019-11-05 05:24] LABS: BUN/CREATININE RATIO 11
[2019-11-05 05:26] LABS: ALANINE AMINOTRANSFERASE 14 U/L (0-55)
[2019-11-05 07:24] VITALS: BP 106/73
[2019-11-05] MEDS: AZITHROMYCIN 250 MG TAB (ZITHROMAX) PO SCH (08:01)
[2019-11-05] MEDS: NICOTINE PATCH REMOVAL TP SCH (11:23)
--- NOTE | 2019-11-05 11:47 | Discharge Summary ---
Diagnosis/Chief Complaint Date of Admission Nov 01, 2019 at 23:08 Date of Discharge 11/05/2019 Admission Diagnosis Admission Diagnosis Strep PNA Tobacco Abuse Discharge Diagnosis See Above Discharge Summary-Simple/Stand Consultations Discharge Physical Examination Allergies: Coded Allergies: No Known Drug Allergies (Unverified , 03/09/16) Vitals & I&Os Vital Sign - Last 12Hours Date Time Temp Pulse Resp B/P (MAP) Pulse Ox O2 Delivery O2 Flow Rate FiO2 11/05/19 08:00 98 Room Air 11/05/19 07:24 36.5 58 16 106/73 (84) 11/02/19 08:59 97.00 Intake and Output 11/05/19 00:00 Intake Total 1669 ml Output Total 300 ml Balance 1369 ml General Appearance: Alert, Oriented X3, Cooperative, No Acute Distress HEENT: Mucous Memb Moist/Chemult Respiratory: Clear to Auscultation, Normal Air Movement Cardiovascular: Regular Rate, No Murmurs Abdominal: Normal Bowel Sounds, Soft, No Tenderness, No Masses Extremities: No Edema, No Tenderness/Swelling Skin: No Rashes, No Breakdown Neuro: Normal Speech, Strength at 5/5 X4 Ext, Sensation Intact, Cranial Nerves 3-12 NL Psych/Mental Status: Mental Status NL, Mood NL Hospital Course Was the Problem List Reviewed?: Yes See final discharge diagnosis. Discussion & Recommendations 23 yo M that presented to ER with shortness of breath. Patient was found to have Strep PNA and was titrated off oxygen. He was admitted to complete at least 5 days of antibiotics due to non compliance. He was discharged with 2 additional days of PO antibiotics. Patient states that he has a significant smoking history and smoke up to 2 ppd on most days. Discussed the importance of cessation Discharge Condition at discharge Stable Instructions to patient/family Please see electronic discharge instructions given to patient. Discharge Medications Reviewed and agree with Discharge Medication list on patient's Discharge Instruction sheet Clinical Quality Measures DVT/VTE Risk/Contraindication: Risk Factor Score Per Nursin RFS Level Per Nursing on Admit: 2=Moderate Copy Copies To 1: CHC: DEAN Borges MD Nov 05, 2019 11:47
[2019-11-05] MEDS ORDERED: CEFD300C3 PO (11:50)
--- NOTE | 2019-11-05 11:52 | Discharge Summary ---
Discharge [facility] Reconcile Patient Problems Problems Reviewed?: Yes Discharge Medications New, Converted or Re-Newed RX: Transmitted to Pharmacy New Medications: Cefdinir (Cefdinir) 300 Mg Capsule 300 MG PO BID, #6 CAP Continued Medications: Acetaminophen (Tylenol Extra Strength) 500 Mg Tablet 4192-9464 MG PO Q8H PRN for PAIN-MILD (1-4), TAB Ibuprofen (Ibuprofen) 200 Mg Tablet 600-800 MG PO Q8H PRN for PAIN-MILD (1-4), TAB Patient Instructions Goal/Follow Up Appt: [facility] with Thor Lemus on November 11 @ 1120 Activity & Diet Discharge Diet: No Restrictions Activity as Tolerated: Yes DEAN SINGH MD Nov 05, 2019 11:51
[2019-11-05 12:40] VITALS: BP 106/73
== END 2019-11-05 12:25 | disposition home or self-care (01) | DRG 871 ==
LOC: EDUNIT# 21:15 → ER 21:17 → 4TH 23:08
PROVIDERS: ADMIT Internal Medicine; ATTEND Internal Medicine
DX: A40.3 Sepsis due to Streptococcus pneumoniae (principal); J15.4 Pneumonia due to other streptococci; R07.81 Pleurodynia; R11.2 Nausea with vomiting, unspecified; K21.9 Gastro-esophageal reflux disease without esophagitis; M54.9 Dorsalgia, unspecified; F17.210 Nicotine dependence, cigarettes, uncomplicated; Z20.828 Contact with and (suspected) exposure to other viral communicable diseases; Z91.19 Patient's noncompliance with other medical treatment and regimen
CPT/HCPCS: 36415; 71045; 71046; 80053; 83605; 83615; 84145; 85007; 85025; 85027; 85610; 85730; 86141; 87040; 87077; 87181; 87184; 87430; 87635; 87804; 96361; 96374; 96375

== ENCOUNTER 2020-11-19 03:17 | Emergency (ER) | payer SELFPAY ==
[~2020-11-19] VITALS: Ht 183 cm; Wt 64.2 kg
[~2020-11-19 03:17] MED LIST changes: +ACET-2267 PO; +AZIT250T12 PO; +CEFD300C3 PO; +IBUP-2473 PO; +ONDA4TAB11 PO
[2020-11-19 03:25] VITALS: BP 121/80
--- NOTE | 2020-11-19 03:43 | ED Integumentary General ---
General Chief Complaint: Bite-Animal/Human/Insect Stated Complaint: TICKS IN GROIN AREA Nursing Triage Note: c/o groin itching x1 week, reports 2 ticks on scrotum. Source: patient Exam Limitations: no limitations History of Present Illness Date Seen by Provider: Nov 19, 2020 Time Seen by Provider: 03:27 Initial Comments This 24-year-old young man presents to the emergency room with concerns about spots on his scrotum he believes to be embedded ticks. He noticed them today and reports itching associated with them. He was not able to remove them. On closer examination, these appear to be skin lesions. He has never noticed them before. He also has some erythematous inflammation suggestive of candidiasis on the skin. He does admit to aggressively rubbing or scratching the area due to itching. He denies any other symptoms. Allergies and Home Medications Allergies Coded Allergies: No Known Drug Allergies (Unverified , 03/09/16) Home Medications Hydrocortisone Acetate 28 Gm Oint...g., 28 GM TP BID Prescribed by: JIM CA on 11/19/20 0405 Miconazole Nitrate 14 Gm Cream..g., 14 GM TP BID Prescribed by: JIM CA on 11/19/20 0405 Patient Home Medication List Home Medication List Reviewed: Yes Review of Systems Review of Systems Constitutional: no symptoms reported Genitourinary: see HPI Skin: see HPI Past Afyexti-Ruvlnc-Tyhzfd Hx Patient Social History Alcohol Use: Rarely Uses Number of Drinks Today: GG Alcohol Beverage of Choice: Beer, Whiskey, Vodka Drug of Choice: cannibus Smoking Status: Current Everyday Smoker Type Used: Cigarettes 2nd Hand Smoke Exposure: No Recent Infectious Disease Expo: No Recent Hopitalizations: No Immunizations Up To Date Tetanus Booster (TDap): Unknown PED Vaccines UTD: No Seasonal Allergies Seasonal Allergies: No Past Medical History Surgeries: No Respiratory: No Cardiac: No Neurological: No Reproductive Disorders: No Genitourinary: No Gastrointestinal: Yes Gastroesophageal Reflux Musculoskeletal: Yes Chronic Back Pain Endocrine: No HEENT: No Cancer: No Psychosocial: No Violent Behavior Integumentary: No Blood Disorders: No Family Medical History No Pertinent Family Hx Physical Exam Vital Signs Vital Signs - First Documented 11/19/20 03:25 Temp 36.4 Pulse 62 Resp 18 B/P (MAP) 121/80 (94) Pulse Ox 97 O2 Delivery Room Air Capillary Refill : Less Than 3 Seconds General Appearance: no apparent distress HEENT: normal ENT inspection Cardiovascular: regular rate, rhythm, no edema Respiratory: normal breath sounds, no respiratory distress Gastrointestinal: non tender, soft; No distended Skin: other (Erythematous, slightly excoriated skin on the scrotum. There are a few small lesions about 2 mm or less in diameter that have the appearance of either ruptured capillaries or possibly angiokeratoma's) Progress/Results/Core Measures Results/Orders Vital Signs/I&O 11/19/20 03:25 Temp 36.4 Pulse 62 Resp 18 B/P (MAP) 121/80 (94) Pulse Ox 97 O2 Delivery Room Air Blood Pressure Mean: 94 Progress Progress Note : Progress Note Skin lesions of concern are not tics. They appear to be traumatic capillary ruptures (blood blisters) or possibly angiokeratoma's. Patient was educated on this finding. Patient has been scratching and rubbing the area because of probable Abigail. This will be treated. Trauma from scratching and rubbing may have caused these skin lesions. Departure Impression Primary Impression: Scrotal rash Disposition: 01 HOME, SELF-CARE Condition: Stable Departure-Patient Inst. [facility]errals: [facility] [place] Primary Care Physician Patient Instructions: Fungal Skin Rash Add. Discharge Instructions: Your skin rash may be due to a combination of yeast or fungal infection (jock itch) and either blood blisters from scratching and rubbing or a type of rash called angiokeratoma. Applied by miconazole cream and hydrocortisone cream together twice daily for the next 2 weeks. If these spots are angiokeratoma spots, they will not disappear with treatment but the itching should stop. Follow-up with your primary care provider if you are not getting relief within a couple of days. All discharge instructions reviewed with patient and/or family. Voiced understanding. Scripts Hydrocortisone Acetate (Hydrocortisone) 28 Gm Oint...g. 28 GM TP BID, #1 TUBE 1 Refill Prov: JIM ROBLERO MD 11/19/20 Miconazole Nitrate (Antifungal Cream) 14 Gm Cream..g. 14 GM TP BID, #1 TUBE 1 Refill Prov: JIM ROBLERO MD 11/19/20 JIM ROBLERO MD Nov 19, 2020 03:43
[2020-11-19] MEDS ORDERED: HYDR28OI2 TP (04:05)
[2020-11-19] MEDS ORDERED: MICO14CR7 TP (04:05)
== END 2020-11-19 04:07 | disposition home or self-care (01) ==
LOC: EDUNIT# 03:17 → ER 03:20
DX: N49.2 Inflammatory disorders of scrotum (principal); F17.210 Nicotine dependence, cigarettes, uncomplicated
CPT/HCPCS: 99283

== ENCOUNTER 2021-01-05 08:25 | Emergency (ER) | payer SELFPAY ==
[~2021-01-05] VITALS: Ht 182 cm; Wt 68.0 kg
[~2021-01-05 08:25] MED LIST changes: +HYDR28OI2 TP; +MICO14CR7 TP; -SULF1TAB35 PO; +SULF1TAB38 PO
--- NOTE | 2021-01-05 09:04 | ED General ---
General Chief Complaint: Cough/Cold/Flu Symptoms Stated Complaint: COUGH;CONGESTION Nursing Triage Note: Pt c/o six days of non-productive coough, headache and sore throat. Pt has hx of pneumonia and is concerned of the same. Source of Information: Patient Exam Limitations: No Limitations History of Present Illness Date Seen by Provider: Jan 05, 2021 Time Seen by Provider: 08:35 Initial Comments This 25-year-old young man presents to the emergency room with complaints of flulike symptoms including headache, sore throat, malaise, cough, and chest congestion for about the past 6 days. He is afebrile with normal vital sides. He denies prior COVID-19 infection or COVID-19 vaccination. He states his symptoms feel very similar to when he had pneumonia in the past. Allergies and Home Medications Allergies Coded Allergies: No Known Drug Allergies (Unverified , 03/09/16) Home Medications Hydrocortisone Acetate 28 Gm Oint...g., 28 GM TP BID Prescribed by: JIM CA on 11/19/20 0405 Miconazole Nitrate 14 Gm Cream..g., 14 GM TP BID Prescribed by: JIM CA on 11/19/20 0405 Patient Home Medication List Home Medication List Reviewed: Yes Review of Systems Review of Systems Constitutional: see HPI EENTM: see HPI Respiratory: see HPI Cardiovascular: no symptoms reported Gastrointestinal: no symptoms reported Genitourinary: no symptoms reported Musculoskeletal: no symptoms reported Skin: no symptoms reported Psychiatric/Neurological: See HPI Hematologic/Lymphatic: No Symptoms Reported Immunological/Allergic: no symptoms reported Past Tyitpgc-Cptqak-Rgxmmm Hx Patient Social History Tobacco Use?: Yes Tobacco type used: Cigarettes Smoking Status: Current Everyday Smoker Substance use?: Yes Substance type: Marijuana Alcohol Use?: No Pt feels they are or have been: No Immunizations Up To Date Tetanus Booster (TDap): Unknown PED Vaccines UTD: No Seasonal Allergies Seasonal Allergies: No Past Medical History Surgeries: No Respiratory: No Cardiac: No Neurological: No Reproductive Disorders: No Genitourinary: No Gastrointestinal: Yes Gastroesophageal Reflux Musculoskeletal: Yes Chronic Back Pain Endocrine: No HEENT: No Cancer: No Psychosocial: No Violent Behavior Integumentary: No Blood Disorders: No Family Medical History No Pertinent Family Hx Physical Exam Vital Signs Vital Signs - First Documented Capillary Refill : Less Than 3 Seconds Height, Weight, BMI Height: 6'0" Weight: 150lbs. 1.0oz. 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 Norm as Tested Skin: Normal Color, Warm/Dry Progress/Results/Core Measures Suspected Sepsis SIRS Temperature: Pulse: 82 Respiratory Rate: 16 Blood Pressure 113 /78 Mean: 90 Results/Orders Lab Results Laboratory Tests Test 01/05/21 08:39 Range/Units Influenza Type A (RT-PCR) Not Detected Not Detecte Influenza Type B (RT-PCR) Not Detected Not Detecte SARS-CoV-2 RNA (RT-PCR) Not Detected Not Detecte My Orders Orders - JIM ROBLERO MD Covid 19 Inhouse Test (01/05/21 08:37) Influenza A And B By Pcr (01/05/21 08:37) Chest Pa/Lat (2 View) (01/05/21 09:22) Vital Signs/I&O 01/05/21 01/05/21 01/05/21 08:35 08:35 10:18 Temp 36.6 36.6 Pulse 82 80 Resp 16 16 B/P (MAP) 113/78 (90) 101/68 (90) Pulse Ox 98 98 O2 Delivery Room Air Room Air Room Air Capillary Refill : Less Than 3 Seconds Blood Pressure Mean: 90 Progress Note : Progress Note Vital signs remained stable. Chest x-ray was unremarkable. Covid and flu swabs were negative. 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 He expressed understanding and a work note was provided. He was also encouraged to quit smoking. Diagnostic Imaging Diagonstic Imaging: Xray Plain Films/CT/US/NM/MRI: chest Comments Chest x-ray viewed by me and report reviewed. See report below: NAME: JACK ALVES [facility] REC#: [id number] PT STATUS: REG ER : 1995 PHYSICIAN: JIM ROBLERO MD ADMIT DATE: 01/05/21/ER Draft Date of Exam:01/05/21 CHEST PA/LAT (2 VIEW) INDICATION: Cough and congestion PA and lateral views of the chest obtained with comparison made study of 11/04/2019. FINDINGS: Heart size and pulmonary vascularity are within normal limits, and the lungs are clear, bilaterally. IMPRESSION: Unremarkable chest. Dictated on workstation # [id number] Dict: 01/05/21938 Trans: 01/05/21940 CV [id number] Interpreted by: ASTON AMEZQUITA MD Departure Impression Primary Impression: Flu-like symptoms Disposition: HOME, SELF-CARE Condition: Stable Departure-Patient Inst. Decision time for Depature: 10:11 Referrals: [facility] [place]) Primary Care Physician Patient Instructions: Cough, Adult (DC) Add. Discharge Instructions: Drink plenty of clear liquids to stay well-hydrated. You may take [id number] cough and cold medications for your symptoms. Tylenol (acetaminophen) and/or ibuprofen may be used for fever, headache, or pain. Because of the current pandemic situation, you should remain in relative isolation until your symptoms improve. 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 Call with questions or concerns. Return to the ER if you have worsening symptoms. Work on smoking reduction and quit smoking as soon as possible. Seek help from your primary care provider in this process if needed. All discharge instructions reviewed with patient and/or family. Voiced understanding. Work/School Note: Work Release Form Date Seen in the Emergency Department: Jan 05, 2021 Return to Work: Jan 07, 2021 Restrictions: Return-No Fever (24hrs) Other Restrictions Listed Below: Return when symptoms improve. JIM ROBLERO MD Jan 05, 2021 09:04
--- NOTE | 2021-01-05 09:42 | Diagnostic Imaging Report ---
INDICATION: Cough and congestion PA and lateral views of the chest obtained with comparison made study of 11/04/2019. FINDINGS: Heart size and pulmonary vascularity are within normal limits, and the lungs are clear, bilaterally. IMPRESSION: Unremarkable chest. Dictated by: Dictated on workstation # [id number]
[2021-01-05 10:18] VITALS: BP 101/68
== END 2021-01-05 10:19 | disposition home or self-care (01) ==
LOC: EDUNIT# 08:25 → ER 08:26
DX: J11.1 Influenza due to unidentified influenza virus with other respiratory manifestations (principal); F17.210 Nicotine dependence, cigarettes, uncomplicated; Z20.822 Contact with and (suspected) exposure to COVID-19
CPT/HCPCS: 71046; 87636